=== PATIENT | female | born 1990 | race Caucasian/White ===

== ENCOUNTER 2020-05-25 14:57 | Emergency (ER) | payer BC, SELFPAY ==
[2020-05-25 15:01] VITALS: BP 140/101; PULSE 103; RESP 18; TEMP 36.7; O2SAT 98
--- NOTE | 2020-05-25 15:48 | ED.GENADULT ---
HPI - General Adult General Chief complaint: Ear <Zana Latham PA-C - Last Filed: 05/25/20 16:05> Stated complaint: left ear pain, radiating to jaw and face <Zana Latham PA-C - Last Filed: 05/25/20 16:05> Time Seen by Provider: 05/25/20 15:00 <Zana Latham PA-C - Last Filed: 05/25/20 16:05> Source: patient <Zana Latham PA-C - Last Filed: 05/25/20 16:05> Mode of arrival: ambulatory <Zana Latham PA-C - Last Filed: 05/25/20 16:05> Limitations: no limitations <UNRULY King Last Filed: 05/25/20 16:05> History of Present Illness HPI narrative: Patient is a 21-year-old female who presents with mild sore throat and left ear pain for the last 2 days has not taken anything for symptoms. Patient has mild discomfort worse with swallowing patient has not been seen for this complaint patient presents in no distress. Patient denies other URI symptoms or sick contacts has not taken anything for symptoms and is resting comfortably in the room upon arrival <Zana Latham PA-C - Last Filed: 05/25/20 16:05> Related Data Home medications: Home Medications Medication Instructions Recorded Confirmed famotidine 05/25/20 <Zana Latham PA-C - Last Filed: 05/25/20 16:05> Allergies/adverse reactions: Allergies Allergy/AdvReac Type Severity Reaction Status Date / Time Sulfa (Sulfonamide Allergy Severe Rash Verified 11/23/18 09:37 Antibiotics) iohexol Allergy Unknown Verified 05/25/20 15:06 [From contrast - CT, X-RAY] <Zana Latham PA-C - Last Filed: 05/25/20 16:05> Review of Systems Review of Systems: All systems reviewed & are unremarkable except as noted in HPI and below <Zana Latham PA-C - Last Filed: 05/25/20 16:05> [facility] Social History Social History: Social History (Updated 05/25/20 @ 15:50 by Zana Latham PA-C) Smoking status: Never smoker <UNRULY King Last Filed: 05/25/20 16:05> Exam Narrative: Exam Narrative: GENERAL: Well-appearing, well-nourished, and in no acute distress. HEAD: Normocephalic, atraumatic. EYES: PERRLA and EOMI. ENT: Nares clear, no rhinorrhea or epistaxis. Mucous membranes moist. Oropharynx without tonsillar hypertrophy exudate or other lesions. Bilateral TMs pearly foreman nonbulging CHEST: Clear to auscultation. No respiratory distress. No wheezes rales or rhonchi HEART: Regular rate and rhythm. No murmur heard. EXTREMITIES: Normal range of motion. No edema. SKIN: Warm, dry, no rash. NEURO: No focal deficits. Alert and oriented x3. Cranial nerves II through XII grossly intact PSYCH: Normal mood and affect. <UNRULY King Last Filed: 05/25/20 16:05> Course Course Emergency Course: Patient in the room in no distress aware of case findings treatment plan and diagnosis <UNRULY King Last Filed: 05/25/20 16:05> Vital Signs Vital signs: Vital Signs Temperature 36.7 C 05/25/20 15:01 Pulse Rate 103 H 05/25/20 15:01 Respiratory Rate 18 05/25/20 15:01 Blood Pressure 140/101 H 05/25/20 15:01 Pulse Oximetry 98 05/25/20 15:01 Temperature 36.7 C 05/25/20 15:01 Pulse Rate 103 H 05/25/20 15:01 Respiratory Rate 18 05/25/20 15:01 Blood Pressure 140/101 H 05/25/20 15:01 Pulse Oximetry 98 05/25/20 15:01 <UNRULY King Last Filed: 05/25/20 16:05> Vital Signs Temperature 36.7 C 05/25/20 15:01 Pulse Rate 103 H 05/25/20 15:01 Respiratory Rate 18 05/25/20 15:01 Blood Pressure 140/101 H 05/25/20 15:01 Pulse Oximetry 98 05/25/20 15:01 Temperature 36.7 C 05/25/20 15:01 Pulse Rate 103 H 05/25/20 15:01 Respiratory Rate 18 05/25/20 15:01 Blood Pressure 140/101 H 05/25/20 15:01 Pulse Oximetry 98 07/17/20 15:01 <Bonnie Carias MD - Last Filed: 05/25/20 17:03> Medical Decision Making MDM Narrative Medical decision making narrative: P
== END 2020-05-25 16:27 | disposition home or self-care (01) ==
PROVIDERS: Emergency Provider Emergency Medicine; PCP Family Medicine
DX: H92.02 Otalgia, left ear (principal)
CPT/HCPCS: 87081; 87880; 99283

== ENCOUNTER 2020-06-07 12:29 | Outpatient (CLI) | payer BC, SELFPAY ==
--- NOTE | ~2020-06-07 | US_ITS ---
EXAMINATION: US abdomen complete EXAM DATE: 06/07/2020 14:00 INDICATION: Chronic abdominal pain. TECHNIQUE: Multiple grayscale and Doppler images of the complete abdomen were obtained (by a technolo gist who performed the scan) and subsequently reviewed. There is no prior study for comparison. FINDINGS: The abdominal aorta is normal in caliber. Visualized portion IVC is patent. Pancreas is poorly vi sualized from overlying bowel gas. The liver has normal echogenicity and contour. There are no focal liver lesions identified. There is no evidence of intrahepatic biliary duct dilation. Portal venous flow was seen in the hepatopedal , normal direction and has normal Doppler waveform. Common bile duct measures 5 mm, which is normal. The gallbladder wall is normal in thickness, with ex pected amount of distention. No sonographic evidence of pericholecystic fluid. There is no cholelit hiases. Technologist performing exam reports patient did not demonstrate sonographic Nam's sign. Please note that this sign is less reliable in patients who have received pain medication. Right kidney: There is normal contour and echogenicity. It measures 10.0 x 4.2 x 5.7 centimeters. There are no focal renal lesions identified. There is no hydronephrosis. Left kidney: There is normal contour and echogenicity. It measures 9.8 x 5.7 x 6.3 centimeters. Th ere are no focal renal lesions identified. There is no hydronephrosis. The spleen measures 11.4 centimeters and is morphologically normal. IMPRESSION: 1. Unremarkable complete abdominal ultrasound exam. Reviewed, dictated and finalized at location A.
--- NOTE | ~2020-06-07 | US_ITS ---
EXAMINATION: US pelvic complete w TV DATE: 06/07/2020 14:00 INDICATION: Pelvic pain Comparison:No prior studies for comparison. TECHNIQUE: Multiple transabdominal and endovaginal sonographic images of the pelvis performed. FINDINGS: The uterus measures 9.2 x 4.1 x 5 cm. IUD present in the endometrium. The endometrial compl ex measures 7 mm. The ovaries are not visualized. There is no free fluid in the pelvis. There are no abnormal masses seen on either side. IMPRESSION: 1. Unremarkable pelvic ultrasound. IUD present in the endometrium. Reviewed, dictated and finalized at location A.
== END 2020-06-07 12:30 | disposition home or self-care (01) ==
PROVIDERS: PCP Family Medicine; Visit Provider Family Medicine
DX: R10.9 Unspecified abdominal pain (principal)
CPT/HCPCS: 76700; 76830; 76856

== ENCOUNTER 2020-07-27 11:47 | Outpatient (CLI) | payer BC, SELFPAY ==
--- NOTE | ~2020-07-27 | MMUS_ITS ---
EXAMINATION: MM diagnostic jeferson LT w ekta, US breast LT limited HISTORY: Tender nodule in upper outer quadrant TECHNIQUE: ML, MLO, CC 3-D tomosynthesis images of left breast were performed and synthetic 2-D imag es were generated. CAD analysis was submitted and interpreted. High resolution breast ultrasound was performed. COMPARISON: 02/07/2019 bilateral complete breast ultrasound BREAST PARENCHYMAL COMPOSITION: The breasts are almost entirely fatty. FINDINGS: MAMMOGRAPHIC FINDINGS: No suspicious mass or architectural distortion, malignant calcification, skin thickening or retractio n is detected. ULTRASOUND: There is no evidence of focal abnormal solid or cystic lesion or abnormal shadowing in the area of cl inical complaint in the left upper outer quadrant. IMPRESSION: 1. No mammographic evidence of malignancy 2. Routine mammographic screening is recommended beginning at age 35-40 BI-RADS Category 1: Negative Reviewed, dictated and finalized at location A. IMPRESSION: 1. No mammographic evidence of malignancy 2. Routine mammographic screening is recommended beginning at age 35-40 BI-RADS Category 1: Negative
== END 2020-07-27 11:48 | disposition home or self-care (01) ==
LOC: ANHIMG 11:51
PROVIDERS: PCP Family Medicine
DX: N63.25 Unspecified lump in the left breast, overlapping quadrants (principal)
CPT/HCPCS: 76642; 77061; 77065; G0279

== ENCOUNTER 2021-06-24 12:37 | Outpatient (CLI) | payer BC, SELFPAY ==
--- NOTE | ~2021-06-24 | MR_ITS ---
EXAMINATION: MR brain/brain stem wo con DATE: 06/24/2021 14:13 INDICATION: Atypical left-sided facial pain for one year. TECHNIQUE: Magnetic resonance imaging (MRI) of the brain and brainstem was performed without intraven ous contrast. Sequences included sagittal and axial T1-weighted FSE, axial diffusion-weighted FS EPI, axial T2*-weighted GRE, axial T2-weighted FLAIR Propeller, and axial T2-weighted Propeller. Apparent diffusion coefficient (ADC) maps were created. COMPARISON: None. FINDINGS: There is no intracranial hemorrhage, acute infarction, or abnormal intracranial mass lesion . The ventricles are normal in size. The paranasal sinuses are clear. The orbits are normal. The mast oid air cells are normal. IMPRESSION: 1. Normal brain. Reviewed, dictated and finalized at location B. IMPRESSION: 1. Normal brain.
== END 2021-06-24 12:38 | disposition home or self-care (01) ==
LOC: ANHIMG 12:43
PROVIDERS: PCP Family Medicine
DX: G50.1 Atypical facial pain (principal)
CPT/HCPCS: 70551

== ENCOUNTER 2021-09-05 17:51 | Emergency (ER) | payer BC, SELFPAY ==
[2021-09-05 18:00] VITALS: BP 120/84; PULSE 107; RESP 16; TEMP 37.3; O2SAT 99
--- NOTE | 2021-09-05 18:40 | ED.EAR ---
HPI - Ear Problem General Chief complaint: Ear Stated complaint: ear infection Source: patient and RN notes reviewed Limitations: no limitations History of Present Illness HPI Narrative: The overweight patient, on minimal medications, presents with ear pains. Patient states she had first bilateral, now mostly left ear discomfort that is mild, worse with palpation of the tragus of the ear . She also has definite surrounding [? sympathetic] redness of the superior helix- well away from the piercings of the lower lobule. No fever, decreased acuity, vertigo, discharge, mastoid tenderness Related Data Allergies Allergy/AdvReac Type Severity Reaction Status Date / Time Sulfa (Sulfonamide Allergy Severe Rash Verified 09/05/21 18:18 Antibiotics) iohexol Allergy Unknown Verified 09/05/21 18:18 [From contrast - CT, X-RAY] Review of Systems Review of Systems: General/Constitutional: No weight loss,fever Eyes: N0: Redness,discharge Ears/Nose/Throat: No: Epistaxis,ear discharge Respiratory: Denies: Hemoptysis Gastrointestinal: No Vomiting, Bleeding-rectal Skin: No Lumps, eruption Neurologic: No Focal Weakness,Sz Hematologic: Denies: Petechiae/Purpura Psychiatric: No: Suicida ideationl All Other Systems: Reviewed and Negative PMFSH Social History Social History (Updated 05/25/20 @ 15:50 by Zana Latham PA-C) Smoking status: Never smoker Comments At time of signature, agree with nursing past medical, surgical, social and family history. There is no relevant family history pertinent to the presenting complaint Exam Narrative: General Appearance: Well appearing, Well nourished, No distress EYE: PERRLA, EOMI Ears: Left EAC and helix with mild erythema/flushness;right TM external ear normal, Auditory canal normal Nose: Normal nose, Nares clear Mouth/Throat: Normal appearing, Normal lips Neck: Supple, No adenopathy Respiratory: Airway patent, No respiratory distress Skin: Warm, Dry Neurological: A&O x3, CN II-X intact Psychiatric: Normal mood, Normal affect Course Vital Signs Vital signs: Vital Signs Temperature 99.1 F 09/05/21 18:00 Pulse Rate 107 H 09/05/21 18:00 Respiratory Rate 16 09/05/21 18:00 Blood Pressure 120/84 09/05/21 18:00 Pulse Oximetry 99 09/05/21 18:00 Temperature 99.1 F 09/05/21 18:00 Pulse Rate 107 H 09/05/21 18:00 Respiratory Rate 16 09/05/21 18:00 Blood Pressure 120/84 09/05/21 18:00 Pulse Oximetry 99 09/05/21 18:00 Medical Decision Making Vital Signs Vital Signs: Vital Signs Temperature 99.1 F 09/05/21 18:00 Pulse Rate 107 H 09/05/21 18:00 Respiratory Rate 16 09/05/21 18:00 Blood Pressure 120/84 09/05/21 18:00 Pulse Oximetry 99 09/05/21 18:00 Temperature 99.1 F 09/05/21 18:00 Pulse Rate 107 H 09/05/21 18:00 Respiratory Rate 16 09/05/21 18:00 Blood Pressure 120/84 09/05/21 18:00 Pulse Oximetry 99 09/05/21 18:00 Discharge Plan Discharge Clinical Impression: Acute otalgia Qualifiers: Laterality: left Qualified Code(s): H92.02 - Otalgia, left ear Patient Disposition: Home, Self-Care Condition: Stable Instructions: Swimmer's Ear (ED) Prescriptions: New klbsksuv-ypkdyvzrw-FV 3.5-10,000-1 mg/mL-unit/mL-% solution 4 drop RIGHT EAR Q8H Qty: 10 RF: 0 ciprofloxacin HCl [Cipro] 250 mg tablet 250 mg PO Q12H Qty: 10 RF: 0 fluticasone propionate [Children's Flonase Allergy Rlf] 50 mcg/actuation spray,suspension 1 spray intranasal BID Qty: 16 RF: 2 Follow-up/Referrals: UNKNOWN,DOCTOR [Primary Care Provider] -
== END 2021-09-05 18:45 | disposition home or self-care (01) ==
PROVIDERS: Emergency Provider Emergency Medicine
DX: H92.02 Otalgia, left ear (principal); K21.9 Gastro-esophageal reflux disease without esophagitis
CPT/HCPCS: 99213; G0463

== ENCOUNTER 2021-10-01 17:32 | Emergency (ER) | payer BC, SELFPAY ==
[2021-10-01 17:40] VITALS: BP 158/89; PULSE 97; RESP 18; TEMP 37.1; O2SAT 98
[2021-10-01 17:42] VITALS: BP 158/89; PULSE 97; RESP 18; TEMP 37.1; O2SAT 98
--- NOTE | 2021-10-01 17:44 | ED.URI ---
HPI - URI/Sore Throat General Chief Complaint: Upper Respiratory Infection Stated Complaint: Cough,Congestion Time Seen by Provider: 10/01/21 17:52 Source: patient and RN notes reviewed Mode of arrival: ambulatory Limitations: no limitations History of Present Illness HPI Narrative: 31-year-old female presents concern for 5-day history of nasal congestion, drainage, cough. Reports she is taking [id number] medications with occasional relief. Reports it is moving to her chest. She denies body aches, chills, fever, sweats, shortness of breath. Has not been vaccinated for Covid. MD elicited complaint: cough Related Data Home Medications Medication Instructions Recorded Confirmed famotidine 10/01/21 Allergies Allergy/AdvReac Type Severity Reaction Status Date / Time Sulfa (Sulfonamide Allergy Severe Rash Verified 09/05/21 18:18 Antibiotics) iohexol Allergy Unknown Verified 09/05/21 18:18 [From contrast - CT, X-RAY] Review of Systems Review of Systems: CONSTITUTIONAL: Denies malaise, chills, sweats, or fever. EYES: Denies visual changes, redness, or discharge. ENT: Reports rhinorrhea, congestion. Denies sinus pain, otalgia and sore throat. CARDIOVASCULAR: Denies chest pain, palpitations, or edema. RESPIRATORY: Reports cough, chest congestion. Denies dyspnea. GASTROINTESTINAL: Denies abdominal pain, nausea, vomiting, diarrhea SKIN: Denies rash or itching. MUSCULOSKELETAL: Denies myalgia. NEUROLOGIC: Denies headache. All systems reviewed & are unremarkable except as noted in HPI and below PMFSH Social History Social History (Updated 05/25/20 @ 15:50 by Zana Latham PA-C) Smoking status: Never smoker Comments At time of signature, agree with nursing past medical, surgical, social and family history. There is no relevant family history pertinent to the presenting complaint Exam Narrative: GENERAL: Well-appearing, well-nourished, and in no acute distress. HEAD: Normocephalic EYES: PERRLA, conjunctivae clear ENT: Nares clear, turbinates edematous and erythematous, clear discharge. Mucous membranes moist. TM pearly foreman with sharp light reflex bilaterally; no tragal tenderness. Oropharynx not erythematous without lesions. Tonsils not enlarged and without exudate, no drooling, no hoarseness, no trismus, uvula midline. NECK: Supple. No lymphadenopathy CHEST: Clear to auscultation, breath sounds equal. No wheezing, rhonchi, rales, or stridor. No respiratory distress, speaks in full sentences. HEART: Regular rate and rhythm. No murmur heard. SKIN: Warm, dry, no rash. NEURO: Alert and oriented x3. PSYCH: Normal mood and affect Course Course Emergency Course: Patient is aware of diagnosis, understands and agrees to treatment plan. Anticipatory guidance given. Patient agrees to follow-up as directed and is aware of reasons to seek care at the emergency department. Portions of this record may have been created with voice recognition software Vital Signs Vital signs: Vital Signs Temperature 98.8 F 10/01/21 17:40 Pulse Rate 97 10/01/21 17:40 Respiratory Rate 18 10/01/21 17:40 Blood Pressure 158/89 H 10/01/21 17:40 Pulse Oximetry 98 10/01/21 17:40 Temperature 98.8 F 10/01/21 17:42 Pulse Rate 97 10/01/21 17:42 Respiratory Rate 18 10/01/21 17:42 Blood Pressure 158/89 H 10/01/21 17:42 Pulse Oximetry 98 10/01/21 17:42 Reviewed. MDM - URI/Sore Throat MDM Narrative Medical decision making narrative: Differential diagnosis considered: Paez virus, strep pharyngitis, allergic rhinitis, upper respiratory tract infection, sinusitis, rhinosinusitis, nasopharyngitis. viral pharyngitis, otitis media, otitis externa, pneumonia, bronchitis, viral cough syndrome, viral syndrome, and influenza. Exam findings show no acute concerns or changes; patient is non-toxic appearing and is in no distress. Patient is appropriate for outpatient treatment and follow-up. Critical Care Ti
== END 2021-10-01 18:09 | disposition home or self-care (01) ==
PROVIDERS: Emergency Provider Nurse Practitioner
DX: J01.90 Acute sinusitis, unspecified (principal); K21.9 Gastro-esophageal reflux disease without esophagitis
CPT/HCPCS: 99213; G0463

== ENCOUNTER → 2021-12-31 01:17 | Outpatient (CLI) | payer OTHER, SELFPAY ==
[2021-12-31 11:52] LABS: SARS-CoV-2 RNA PCR Negative
== END ==
PROVIDERS: Visit Provider Otolaryngology
DX: Z01.812 Encounter for preprocedural laboratory examination (principal); Z20.822 Contact with and (suspected) exposure to COVID-19
CPT/HCPCS: C9803; U0003; U0005

== ENCOUNTER 2022-02-01 22:22 | Emergency (ER) | payer OTHER, SELFPAY ==
[2022-02-01 22:26] VITALS: BP 139/67; PULSE 110; RESP 20; TEMP 36.5; O2SAT 99
--- NOTE | 2022-02-01 22:55 | ED.WOUNDLAC ---
HPI - Wound/Laceration General Chief Complaint: Wound/Laceration Stated Complaint: Left index finger laceration Time Seen by Provider: 02/01/22 22:38 History of Present Illness HPI narrative: Patient is a 31-year-old female who presents ER with laceration to her left second digit. Patient was trying to remove a pop it from the back of an item with a knife when she stabbed her self in the finger. She tried to apply some topical medication to clot but it did not stop a couple spots. Tetanus shot up-to-date. No numbness or tingling. Related Data Home Medications Medication Instructions Recorded Confirmed cholecalciferol (vitamin D3) 50 mcg PO DAILY 12/27/21 12/27/21 [Vitamin D3] vitamin B complex [B Complex] 1 cap PO DAILY 12/27/21 12/27/21 Allergies Allergy/AdvReac Type Severity Reaction Status Date / Time Sulfa (Sulfonamide Allergy Severe Rash Verified 02/01/22 22:36 Antibiotics) iohexol Allergy Anaphylactic Verified 02/01/22 22:36 [From contrast - CT, X-RAY] Shock Review of Systems Constitutional: Constitutional: Denies chills, Denies fever(s) and Denies weakness Musculoskeletal: Musculoskeletal: Denies arthralgias and Denies joint swelling Integumentary/Breasts: Skin/Breast: Denies pruritus, Denies erythema and Denies rash Comments: Finger laceration Neurologic: Denies focal weakness and Denies numbness PMFSH Past Medical History Medical History (Updated 02/01/22 @ 23:41 by Rico Zepeda MD) Hypertension Kidney stones Surgical History Surgical History (Updated 02/01/22 @ 22:58 by Rico Zepeda MD) No pertinent past surgical history Social History Social History Smoking status: Never smoker Alcohol intake: never Substance use: never Substance use type: does not use Spiritual care concerns: No Exam Narrative: GENERAL: Well-appearing, well-nourished, and in no acute distress. HEAD: Normocephalic, atraumatic. HEART: Regular rate and rhythm. No murmur heard. Normal peripheral pulses. EXTREMITIES: Normal range of motion. No edema. SKIN: Warm, dry, no rash. 2 cm laceration over the fat pad of the second digit of the left hand without any exposure of bone. Neurovascular intact. NEURO: No focal deficits. Alert and oriented x3. PSYCH: Normal mood and affect. Course Course Emergency Course: Finger sutured. Discharge home. Vital Signs Vital signs: Vital Signs Temperature 97.7 F 02/01/22 22:26 Pulse Rate 110 H 02/01/22 22:26 Respiratory Rate 20 02/01/22 22:26 Blood Pressure 139/67 02/01/22 22:26 Pulse Oximetry 99 02/01/22 22:26 Temperature 97.7 F 02/01/22 22:26 Pulse Rate 110 H 02/01/22 22:26 Respiratory Rate 20 02/01/22 22:26 Blood Pressure 139/67 02/01/22 22:26 Pulse Oximetry 99 02/01/22 22:26 Procedures Laceration Laceration 1: Date: 02/01/22 Time: 23:28 Site: other (2bd digit) Side (If applicable): left Size (cm): 2 Description: linear Depth: simple, single layer Local Anesthetic: lidocaine 1% and with epi Amount of anesthesia used (mL): 1 Pre-repair: irrigated ====== Skin Level ====== Skin layer closed with: nylon Size (cm): 5-0 Number of sutures: 4 Technique: simple, interrupted ====== Subcutaneous Layer ====== ====== Muscle Layer ====== ====== Tendon Layer ====== Discharge Plan Discharge Clinical Impression: Finger laceration Patient Disposition: Home, Self-Care Condition: Stable Instructions: Care For Your Stitches (ED), Laceration (ED) Additional Instructions: Return the ER if you have fever 100.4 ?F, you cannot keep down food or water, you have chest pain or shortness of breath, or you have additional concerns. Prescriptions: No Action vitamin B complex [B Complex] Capsule 1 cap PO DAILY RF: 0 cholecalcifer
--- NOTE | 2022-02-01 23:22 | PC.NURSE ---
ERP at bedside. Requesting lido with epi for suturing. RN at bedside.
[2022-02-02 00:26] VITALS: BP 153/95; PULSE 100; RESP 16; O2SAT 100
== END 2022-02-02 00:27 | disposition home or self-care (01) ==
PROVIDERS: Emergency Provider Emergency Medicine
DX: S61.211A Laceration without foreign body of left index finger without damage to nail, initial encounter (principal); I10 Essential (primary) hypertension; Z87.442 Personal history of urinary calculi; W26.0XXA Contact with knife, initial encounter
CPT/HCPCS: 12001; 99282

== ENCOUNTER 2022-02-16 14:21 | Emergency (ER) | payer OTHER, SELFPAY ==
[2022-02-16 14:28] VITALS: BP 146/93; PULSE 97; RESP 16; TEMP 37.1; O2SAT 99
--- NOTE | 2022-02-16 14:28 | ED.SKABFB ---
HPI - Skin/Abscess/Foreign Bdy General Chief complaint: Skin/Abscess/Foreign Body Stated complaint: removal of stitches Time Seen by Provider: 02/16/22 14:30 Source: patient and RN notes reviewed Mode of arrival: ambulatory Limitations: no limitations History of Present Illness HPI narrative: 31-year-old female presents for excision level. Reports she has 4 sutures in the distal palmar aspect of the left second digit. Reports she had the stitches placed 2 weeks ago. She denies any complications, drainage, redness, swelling, pain out of portion. Reports she has been MD complaint: laceration (Suture removal) Related Data Home Medications Medication Instructions Recorded Confirmed cholecalciferol (vitamin D3) 50 mcg PO DAILY 12/27/21 12/27/21 [Vitamin D3] vitamin B complex [B Complex] 1 cap PO DAILY 12/27/21 12/27/21 fluticasone propionate 50 mcg INTRANASAL DAILY 02/16/22 02/16/22 Allergies Allergy/AdvReac Type Severity Reaction Status Date / Time Sulfa (Sulfonamide Allergy Severe Rash Verified 02/16/22 14:29 Antibiotics) iohexol Allergy Anaphylactic Verified 02/16/22 14:29 [From contrast - CT, X-RAY] Shock Review of Systems Review of Systems: CONSTITUTIONAL: Denies malaise, chills, sweats, or fever. SKIN: Reports laceration with sutures to the second edge of the left hand MUSCULOSKELETAL: Denies muscle skeletal pain All systems reviewed & are unremarkable except as noted in HPI and below PMFSH Past Medical History Medical History (Updated 02/16/22 @ 14:41 by Anahi Villanueva NP) Hypertension Kidney stones Surgical History Surgical History (Updated 02/01/22 @ 22:58 by Rico Zepeda MD) No pertinent past surgical history Social History Social History Smoking status: Never smoker Alcohol intake: never Substance use: never Substance use type: does not use Spiritual care concerns: No Comments At time of signature, agree with nursing past medical, surgical, social and family history. There is no relevant family history pertinent to the presenting complaint Exam Narrative: GENERAL: Well-appearing, well-nourished, and in no acute distress. HEAD: Normocephalic EYES: PERRLA, conjunctivae clear ENT: Mucous membranes moist. NECK: Supple. No lymphadenopathy CHEST: Clear to auscultation. No respiratory distress. HEART: Regular rate and rhythm. SKIN: Warm, dry. Linear laceration to the distal palmar aspect of the second edge of left hand that is approximated with 4 intact simple interrupted sutures NEURO: Alert and oriented x3. PSYCH: Normal mood and affect Course Course Emergency Course: Patient is aware of diagnosis, understands and agrees to treatment plan. Anticipatory guidance given. Patient agrees to follow-up as directed and is aware of reasons to seek care at the emergency department. Portions of this record may have been created with voice recognition software Level of Care: Express Care Visit Vital Signs Vital signs: Reviewed. MDM - Skin/Abscess/Foreign Bdy MDM Narrative Medical decision making narrative: Verbal consent was obtained. Wound well approximated, no erythema, induration, or discharge noted. 4 simple interrupted completely removed in a sterile fashion. Patient tolerated procedure well, no complications. Patient advised to look for and return for any signs of infection such as redness, swelling, discharge, or worsening pain. Critical Care Time Critical Care Time Critical Care Time: No Discharge Plan Discharge Clinical Impression: Encounter for removal of sutures Patient Disposition: Home, Self-Care Condition: Stable Instructions: Stitches Removal (ED) Additional Instructions: AFTER the stitches are removed: Clean your wound as directed. Carefully wash your wound with soap and water. Pat the area dry with a clean towel. Protect your wound. Your wound can swell, bleed, or split
[2022-02-16 14:33] VITALS: BP 146/93; PULSE 97; RESP 16; TEMP 37.1; O2SAT 99
== END 2022-02-16 14:43 | disposition home or self-care (01) ==
PROVIDERS: Emergency Provider Nurse Practitioner
DX: S61.211D Laceration without foreign body of left index finger without damage to nail, subsequent encounter (principal); X58.XXXD Exposure to other specified factors, subsequent encounter; I10 Essential (primary) hypertension
CPT/HCPCS: 99211; G0463

== ENCOUNTER 2022-04-01 14:05 | Outpatient (CLI) | payer OTHER, SELFPAY ==
--- NOTE | ~2022-04-01 | MM_ITS ---
EXAMINATION: MM diagnostic jeferson LT w ekta HISTORY: Lateral discoloration of the left breast TECHNIQUE: ML, MLO and CC 3-D tomosynthesis images of the left breast were performed and synthetic 2- D images were generated. CAD analysis was submitted and interpreted. COMPARISON: 07/27/2020 diagnostic left mammogram and limited left breast ultrasound examination BREAST PARENCHYMAL COMPOSITION: The left breast is almost entirely fatty. FINDINGS: No suspicious mass or architectural distortion, malignant calcification, skin thickening or retraction or significant new or developing density is detected. IMPRESSION: 1. No mammographic evidence of malignancy 2. Routine mammographic screening beginning at age 40 is recommended. BI-RADS Category 1: Negative Reviewed, dictated and finalized at location A.
== END 2022-04-01 14:06 | disposition home or self-care (01) ==
DX: Z12.31 Encounter for screening mammogram for malignant neoplasm of breast (principal); R92.8 Other abnormal and inconclusive findings on diagnostic imaging of breast
CPT/HCPCS: 77061; 77065; G0279

== ENCOUNTER 2022-09-15 12:32 | Emergency (ER) | payer OTHER, SELFPAY ==
[2022-09-15 12:44] VITALS: BP 157/117; PULSE 96; RESP 18; TEMP 36.8; O2SAT 99
--- NOTE | 2022-09-15 12:59 | ED.URI ---
HPI - URI/Sore Throat General Chief Complaint: Upper Respiratory Infection Stated Complaint: Sneezing Blood Time Seen by Provider: 09/15/22 13:01 Source: patient, RN notes reviewed and old records reviewed Mode of arrival: ambulatory Limitations: no limitations History of Present Illness HPI Narrative: 32-year-old female presents to the [facility] with complaints of sinus congestion for 2 days And sneeze today that was a little bloody. Has been taking Sudafed, Mucinex and using Flonase twice a day. Denies fevers. Denies cough, chest pain or abdominal pain. Related Data Home Medications Medication Instructions Recorded Confirmed cholecalciferol (vitamin D3) 50 50 mcg PO DAILY 12/27/21 09/15/22 mcg (2,000 unit) capsule (Vitamin D3) vitamin B complex 1 cap PO DAILY 12/27/21 09/15/22 fluticasone propionate 50 50 mcg intranasal DAILY 02/16/22 09/15/22 mcg/actuation nasal spray,suspension famotidine 40 mg tablet 40 mg PO DAILY 09/15/22 09/15/22 Allergies Allergy/AdvReac Type Severity Reaction Status Date / Time Sulfa (Sulfonamide Allergy Severe Rash Verified 09/15/22 12:38 Antibiotics) iohexol Allergy Anaphylactic Verified 09/15/22 12:38 [From contrast - CT, X-RAY] Shock Review of Systems Review of Systems: All systems reviewed & are unremarkable except as noted in HPI and below Constitutional: Constitutional: Reports no additional constitutional complaints, Denies chills and Denies fever(s) Eyes: Eyes: Reports no additional eye complaints ENT: Reports as per HPI and Reports nasal congestion Cardiovascular: Cardiovascular: Reports no additional cardiovascular complaints Respiratory: Respiratory: Reports no additional respiratory complaints Gastrointestinal: Gastrointestinal: Reports no additional gastrointestinal complaints Musculoskeletal: Musculoskeletal: Reports no additional musculoskeletal complaints Integumentary/Breasts: Skin/Breast: Reports system reviewed and no additional complaints, except as docu Neurologic: Reports system reviewed and no additional complaints, except as documented Psychiatric: Psychiatric: Reports no additional psychiatric complaints Allergic/Immunologic: Allergic/Immunologic: Reports no additional allergic/immunologic complaints PMFSH Past Medical History Medical History Hypertension Kidney stones Surgical History Surgical History No pertinent past surgical history Social History Social History Smoking status: Never smoker Alcohol intake: never Substance use: never Substance use type: does not use Spiritual care concerns: No Comments At the time of my signature, I reviewed and agree with the nursing past medical, surgical, social, and family history. There is no relevant family history pertinent to the patient complaint. Exam Const: General: healthy appearing, comfortable, no acute distress, well developed, alert and well nourished Nutritional Appearance: well nourished and obese morbidly obese Orientation/consciousness: patient oriented x3 Limitations: no limitations HENMT: Head: normal to inspection Ears: external ears normal, TM's normal bilaterally and EAC's normal Face/Nose/Sinus: Normal external nose present and Nasal discharge present clear; not bloody Face and sinus: normal facial exam Mouth: Yes Normal oral and palatal mucosa present, Yes lip normal and Yes moist mucous membranes Throat: posterior oropharynx normal and uvula midline Eyes: General: appearance normal, both eyes and all related structures Conjunctivae: conjunctivae normal Pupils: Equal, round and reactive pupils present Neck: Neck: normal visual inspection, full ROM, no lymphadenopathy and no meningeal signs Chest: Chest palpation & inspection: normal inspection of the chest Resp: Effort
== END 2022-09-15 13:10 | disposition home or self-care (01) ==
PROVIDERS: Emergency Provider Nurse Practitioner
DX: J01.40 Acute pansinusitis, unspecified (principal); I10 Essential (primary) hypertension
CPT/HCPCS: 99213; G0463

== ENCOUNTER 2022-11-04 12:43 | Outpatient (CLI) | payer OTHER, SELFPAY ==
--- NOTE | ~2022-11-04 | CT_ITS ---
EXAMINATION: CT sinus wo con DATE: 11/04/2022 12:58 INDICATION: Chronic sinusitis TECHNIQUE: Computed tomography (CT) of the paranasal sinuses was performed without intravenous contra st. The dose-length product (DLP) was 222.52 mGy-cm. Iterative reconstruction was used. COMPARISON: None FINDINGS: There is normal development and pneumatization of the paranasal sinuses. There is mild muco melisa thickening of the anterior ethmoidal air cells, left frontal sinus and maxillary sinuses. There i s a 12 mm polyp or mucous retention cyst of the anterior/inferior aspect of the right maxillary sinus . The sphenoid sinuses are clear. There is a trace right mastoid effusion. The bilateral ostiomeatal complexes are occluded. Visualized soft tissues are unremarkable. IMPRESSION: 1. Mild sinus disease as detailed above. Reviewed, dictated and finalized at location L. 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
== END 2022-11-04 12:44 | disposition home or self-care (01) ==
LOC: ANHIMG 12:44
PROVIDERS: Visit Provider Otolaryngology
DX: J32.9 Chronic sinusitis, unspecified (principal)
CPT/HCPCS: 70486

== ENCOUNTER 2022-12-05 03:15 | Day surgery (SDC) | payer OTHER, SELFPAY ==
[2022-11-25 13:10] VITALS: BMI 60.9
--- NOTE | 2022-11-25 13:17 | SUR.PREOP ---
Report to the Outpatient Waiting Room, entrance under the green pavilion located off [facility], at time _0600 on date _12/05/22 . Planned Procedure Time: _0800 . Time changes happen often and if your time is changed the preop area will call you the afternoon before. - You and your visitor will be asked to self-screen and do not enter if you have any COVID symptoms. - Only one visitor is requested with a max of two and NO children visitors are allowed at this time. - The patient visitor may be requested to leave or wait in car when not with patient due to distancing restrictions. - A mask is optional within the hospital. Patients may have clear liquids (water, carbonated beverages, clear teas, apple juice) until 3 hours prior to surgery with a maximum of 20 ounces. - No food from midnight until time of surgery - Infants may have breast milk until 4 hours before surgery, infant formula 6 hours prior to surgery. - Children will be allowed to drink immediately following surgery. If applicable, please bring a bottle or sippy cup to assist with drinking. Juice, water, soda, and popsicles are readily available. For infants on formula, please bring formula the day of surgery. Pacifiers are allowed. Take the following medications with a SIP of water the morning of surgery: ___n/a Medications to discontinue per physician _vitamins Date to take last dose_12/02/22 Please no make-up, nail prydeinig, hairspray, perfume, deodorant, or body powder the day of surgery. No jewelry (including any body piercings) or valuables the day of surgery, leave them at home. Please take a shower or bath the night before, or the morning of, surgery with an antibacterial soap. Wear comfortable, loose fitting clothing. Children are encouraged to wear pajamas. - Jewelry must be removed prior to entering the operating room. Rings and piercings that are not removed may be cut off. - The hospital will not accept responsibility for valuables. - Please leave all valuables, including medications, at home the day of surgery. If you are going home after surgery, a licensed bull driver must drive you home. - NO public transportation without another adult if you receive anesthesia. - We recommend that an adult stay with you for 24 hours following discharge. - We also recommend that you do not drive, make important decision, drink alcoholic beverages, or take any drugs that were not prescribed by your health care provider for at least 24 hours after your discharge time. For Pediatric surgeries, we recommend two adults accompany the child home. Follow any additional instructions given to you from your surgeon. If you or anyone in your household have experienced Covid symptoms in the past week, please notify your surgeon or the nurse liaison at the phone number below for possible testing. Telephone instructions given to _boris alvarez and asked if any additional questions and then verbalized understanding. Patient advised to call surgeon office or pre surgery nurse liaison [phone] if any additional questions.
--- NOTE | 2022-12-04 13:51 | WPDANESEPPF ---
Anes - Initial Pre Proc Eval Procedure: Operation Date: 12/05/22 08:00 Proposed Procedures p Septoplasty - Natalio White MD s Image Guided Bilateral Maxillary Antrostomy Without Tissue Removal, Bilateral Anterior Ethmoidectomy, Left Frontal Sinusotomy, Bilateral Inferior Turbinectomy With Outfracture - Natalio White MD Date/Time: 12/04/22 13:51 Surgeon: Natalio White MD Pre Op Diagnosis: chronic sinusitis Patient Data Age: 32 Gender: F Height: 1.63 m Weight: 160.9 kg Allergies Allergy/AdvReac Type Severity Reaction Status Date / Time iohexol Allergy Severe Anaphylactic Verified 12/05/22 06:07 [From contrast - CT, X-RAY] Shock Sulfa (Sulfonamide Allergy Severe Rash Verified 12/05/22 06:07 Antibiotics) Home Medications Medication Instructions Recorded Confirmed Type cholecalciferol (vitamin D3) 50 50 mcg PO DAILY 12/27/21 11/25/22 History mcg (2,000 unit) capsule (Vitamin D3) vitamin B complex 1 cap PO DAILY 12/27/21 11/25/22 History fluticasone propionate 50 50 mcg intranasal DAILY 02/16/22 11/25/22 History mcg/actuation nasal spray,suspension famotidine 40 mg tablet 40 mg PO DAILY 09/15/22 11/25/22 History meclizine 12.5 mg tablet 12.5 mg PO PRN 10/16/22 11/25/22 History Patient hx anesthesia problems: none Family hx anesthesia problems: none Results Review: All pre-operative results and documents have been reviewed as part of the pre-operative evaluation. [facility] Past Medical History Medical History (Updated 12/04/22 @ 16:31 by Natalio White MD) Acute otalgia Hypertension Kidney stones Morbid obesity with BMI of 60.0-69.9, adult Otalgia of both ears Surgical History Surgical History No pertinent past surgical history Social History Social History (Updated 10/16/22 @ 11:06 by SONNY Yee) Smoking status: Never smoker Alcohol intake: never Substance use: never Substance use type: does not use Lack of Transportation: No Lack of Food: Never True Current Housing: I Have Housing Concerned About Future Housing: No Difficulty Paying Gas/Electric Bills: No Difficulty Paying for Meds: No Currently Unemployed: No Education: Trade/Vocational Certificate Difficulty w/ Childcare or Family Care: YES Living arrangements: with family Spiritual care concerns: No Anes - Eval Final PreProcedure Day of Procedure 12/04/22 13:51 Patient weight: super morbidly obese Heart: regular rate and rhythm Lungs: clear to auscultation and normal air movement Airway: Mallampati scale class II Neurological: alert and oriented Last oral intake: >/= 8 hours ASA classification: III Emergent: no Anesthetic plan: proceed Anesthesia type and monitoring: general ETT Results Review: All pre-operative results and documents have been reviewed as part of the pre-operative evaluation. Informed Consent: The patient's anesthetic plan and its attendant risks and benefits were discussed with the patient/family/POA. Questions were solicited and answers provided to the satisfaction of the patient/family/POA.
--- NOTE | 2022-12-04 16:29 | PM.IMHP ---
H&P: HPI History of Present Illness Date/Time: 12/04/22 16:29 Chief Complaint: chronic sinusitis nasal obstruction nasal congestion septal deviation turbinate hypertrophy Narrative: planned surgical procedure Review of Systems Review of Systems: All systems reviewed & are unremarkable except as noted in HPI and below PMFSH Past Medical History Medical History (Updated 12/04/22 @ 16:31 by Natalio White MD) Acute otalgia Hypertension Kidney stones Morbid obesity with BMI of 60.0-69.9, adult Otalgia of both ears Surgical History Surgical History No pertinent past surgical history Social History Social History (Updated 10/16/22 @ 11:06 by SONNY Yee) Smoking status: Never smoker Alcohol intake: never Substance use: never Substance use type: does not use Lack of Transportation: No Lack of Food: Never True Current Housing: I Have Housing Concerned About Future Housing: No Difficulty Paying Gas/Electric Bills: No Difficulty Paying for Meds: No Currently Unemployed: No Education: Trade/Vocational Certificate Difficulty w/ Childcare or Family Care: YES Living arrangements: with family Spiritual care concerns: No Meds Home Medications and Allergies Home Medications Medication Instructions Recorded Confirmed Type cholecalciferol (vitamin D3) 50 50 mcg PO DAILY 12/27/21 11/25/22 History mcg (2,000 unit) capsule (Vitamin D3) vitamin B complex 1 cap PO DAILY 12/27/21 11/25/22 History fluticasone propionate 50 50 mcg intranasal DAILY 02/16/22 11/25/22 History mcg/actuation nasal spray,suspension famotidine 40 mg tablet 40 mg PO DAILY 09/15/22 11/25/22 History meclizine 12.5 mg tablet 12.5 mg PO PRN 10/16/22 11/25/22 History prednisone 10 mg tablet 10 mg PO DAILY #2 tabs 12/02/22 Rx Allergies Allergy/AdvReac Type Severity Reaction Status Date / Time iohexol Allergy Severe Anaphylactic Verified 11/25/22 12:52 [From contrast - CT, X-RAY] Shock Sulfa (Sulfonamide Allergy Severe Rash Verified 11/25/22 12:52 Antibiotics) Exam Narrative: septal deviation turbinate hypertrophy Assessment and Plan Assessment and plan (1) Chronic sinusitis: Code(s): J32.9 - Chronic sinusitis, unspecified Status: Acute Assessment and Plan: plan OR image guided endoscopic bilateral maxillary antrostomies anterior ethmoidectomies left frontal sinusotomy endoscopic assisted septoplasty inferior turbinate reduction with outfracture risks discussed including bleeding infection septal perforation pain numbness damage to any structure involved in surgery septal perforation CSF leak blindness change in vision brain brain damage bleeding need for postoperative procedures failure to resolve symptoms. (2) Facial pain: Code(s): R51.9 - Headache, unspecified Status: Acute (3) Nasal septal deviation: Code(s): J34.2 - Deviated nasal septum Status: Acute (4) Nasal turbinate hypertrophy: Code(s): J34.3 - Hypertrophy of nasal turbinates Status: Acute (5) Nasal obstruction: Code(s): J34.89 - Other specified disorders of nose and nasal sinuses Status: Acute
[2022-12-05] VITALS (9 sets, daily range): BP systolic 130–144; BP diastolic 72–100; PULSE 87–123; RESP 14–22; TEMP 36.2–37.2; O2SAT 94–100
--- NOTE | 2022-12-05 07:10 | WPDHPUPDATE1 ---
History and Physical Update Update Date/Time: 12/05/22 07:10 History and Physical has been reviewed, including an updated exam of the patient. There are NO changes in the patient's condition. Risks, benefits, and alternatives have been discussed and questions answered. Patient agrees to proceed with procedure.
[2022-12-05] MEDS: LACTATED RINGERS 1,000 ML 30 ML IV CONT ×2 (07:12→10:55)
[2022-12-05] MEDS: ACETAMINOPHEN 500 MG TABLET 1000 MG PO (07:13)
[2022-12-05] MEDS: SCOPOLAMINE 1.5 MG PATCH TRANSDERM (07:25)
[2022-12-05] MEDS: MIDAZOLAM HCL (*CRX) 2 MG/2 ML VIAL 1 MG IV PUSH (07:26)
--- NOTE | 2022-12-05 07:53 | WPDHPUPDATE1 ---
History and Physical Update Update Date/Time: 12/05/22 07:53 Possible transnasal adenoidectomy
--- NOTE | 2022-12-05 07:55 | SUR.PREOP ---
DR TRINIDAD SPOKE WITH PATIENT AND CONSENT WAS ALTERED AND INITIALED BY PATIENT
[2022-12-05] MEDS: ceFAZolin 3 GM/D5W 100 ML 100 ML IVPB (08:07)
[2022-12-05] MEDS: OXYMETAZOLINE HCL 0.05% NAS 15 ML BTL (*BKC) 1 SPRAY NASAL (08:43)
[2022-12-05] MEDS: MUPIROCIN 2% OINT 22 GM TUBE 1 APPLIC EACH NARE (09:45)
[2022-12-05] MEDS: LIDO 2%/EPINEPHRINE 1:100,000 50 ML VIAL 10 ML INFILTRATE (09:46)
[2022-12-05] MEDS: TRIAMCINOLONE ACET INJ 40 MG/ML VIAL XX ×2 (10:23→10:26)
--- NOTE | 2022-12-05 11:11 | W.PM.PROC2 ---
Procedure Note - Detailed Date of Procedure 12/05/22 Pre-op Diagnosis chronic sinusitisNasal obstruction septal deviation turbinate hypertrophy adenoid hypertrophy Post-op Diagnosis Same Procedure Performed image guided endoscopic bilateral maxillary antrostomies image guided endoscopic bilateral anterior ethmoidectomies image guided endoscopic left frontal sinusotomy all without tissue removal endoscopic assisted septoplasty inferior turbinate submucosal reduction with outfracture transnasal adenoidectomy Surgeon Natalio White MD Anesthesia General Indications see above Findings large adenoids easily reduced pick turbinates septum deviated to the left severely all corrected no perforations polypoid edematous infected tissue in all the operated sinuses Description of Procedure patient identified consent verified. Patient brought operating. Time-out performed. General anesthesia induced endotracheal tube secured. Patient prepped draped position 2nd time-out performed. Image guidance initiated and confirmed. Afrin-soaked pledgets placed allowed to sit for 5 minutes then removed. 0 degree endoscope utilized 10 cc 1% lidocaine 1 100,000 parts epinephrine injected into the bilateral nasal septum and anterior heads of the inferior turbinates. Fifteen blade utilized to make Reid incision left-sided septum. Left nasal septal flap elevated 7 Macedonian suction. Osteotome utilized across the septum 7 Macedonian suction utilized to elevate right nasal septal flap. Deviated septum removed combination Nawaf Osuna forceps osteotome Janell forceps. No perforations. Septum closed 2 interrupted 5 0 fast gut sutures. Turbinates reduced submucosal plane with turbinate blade on microdebrider. Outfractured [place] elevator. Transnasal adenoidectomy performed with suction Bovie electrocautery setting of 15 and 20. Maxillary antrostomies performed with image guidance backbiter double ball tip probe straight through cut micro debrider. Anterior ethmoidectomies performed with Kerrison image guidance microdebrider. Excess bleeding throughout the procedure not life threatening. Left frontal sinusotomy performed with image guidance frontal seeker frontal suction Cobra and hose Chava punch. No pack placed the bilateral middle meati I soaked with 1 cc of triamcinolone bilaterally. Schmid splints placed sutured anteriorly using a 3 0 mattress nylon suture. Blood loss 100 cc. I performed all dictated portions of the procedure. No complications. Care the patient given Anesthesiology. Patient taken to PACU. Estimated Blood Loss 100 Drains No Packing Yes ( Nova pack) Pathology None sent Complications No immediate complications Condition Stable Disposition PACU [facility] Billing Surgery - Charge Forward: Surgery Billing
[2022-12-05] MEDS: ONDANSETRON INJ 4 MG/2 ML VIAL IV PUSH (11:43)
== END 2022-12-05 13:24 | disposition home or self-care (01) ==
PROVIDERS: Visit Provider Otolaryngology
PROC: (CPT 30520; principal; 2022-12-05 08:00)
PROC: (CPT 31256; 2022-12-05 08:00)
DX: J32.9 Chronic sinusitis, unspecified (principal); J34.2 Deviated nasal septum; J34.3 Hypertrophy of nasal turbinates; J35.2 Hypertrophy of adenoids; J34.89 Other specified disorders of nose and nasal sinuses; J33.8 Other polyp of sinus; R51.9 Headache, unspecified; I10 Essential (primary) hypertension; E66.01 Morbid (severe) obesity due to excess calories; Z68.44 Body mass index [BMI] 60.0-69.9, adult
CPT/HCPCS: 31256; 31254; 61782; 31276; 30520; 30140; 42999; A9270; J0330; J0690; J1100; J2250; J2405; J2704; J3010; J3301; J7120

== ENCOUNTER 2023-04-16 10:28 | Outpatient (CLI) | payer OTHER, SELFPAY ==
--- NOTE | ~2023-04-16 | CT_ITS ---
EXAMINATION: CT sinus wo con DATE: 04/16/2023 10:53 INDICATION: Chronic sinusitis TECHNIQUE: Computed tomography (CT) of the paranasal sinuses was performed without contrast. Iterativ e reconstruction technique was employed. Exam dose: 11/04/2022 CT sinuses mGy-cm total exam DLP. COMPARISON: 11/04/2022 CT sinuses FINDINGS: Virtually midline nasal septum. There is mildly compressed thickening along the medial wall of the left frontal sinus and some focal soft tissue thickening in the anterior right ethmoids. Interval bilateral nasal antral windows with resection of the uncinate processes and partial ethmoide ctomies since 11/04/2022. Up to 2.9 cm polyp or mucous retention cyst along the anteromedial aspect of the lower right maxillar y sinus. There is mild mucoperiosteal thickening in the lower left maxillary sinus and roof of the ri ght maxillary sinus. The right frontal sinus, left ethmoid air cells and bilateral sphenoid sinuses a re clear. The mastoid air cells are well-developed and aerated bilaterally. IMPRESSION: Status post bilateral nasoantral windows and partial ethmoidectomies since 11/04/2022 Up to 2.9 cm polyp or mucous retention cyst in the inferomedial right maxillary sinus Mild mucosal periosteal thickening along the medial wall of the left frontal sinus, medial roof of ri ght maxillary sinus and the lower left maxillary sinus. Reviewed, dictated and finalized at [facility]. Reviewed, dictated and finalized at location L. IMPRESSION: Status post bilateral nasoantral windows and partial ethmoidectomi es since 11/04/2022 Up to 2.9 cm polyp or mucous retention cyst in the inferomedial right maxillary sinus Mild mucosal periosteal thickening along the medial wall of the left frontal si nus, medial roof of right maxillary sinus and the lower left maxillary sinus.
== END 2023-04-16 10:29 | disposition home or self-care (01) ==
PROVIDERS: PCP Physician Assistant; Visit Provider Otolaryngology
DX: J32.9 Chronic sinusitis, unspecified (principal); R93.0 Abnormal findings on diagnostic imaging of skull and head, not elsewhere classified
CPT/HCPCS: 70486

== ENCOUNTER 2023-08-11 09:03 | Outpatient (CLI) | payer OTHER, SELFPAY ==
--- NOTE | 2023-08-11 11:30 | NEURO_ITS ---
Impression: # Complains of left upper extremity discomfort with numbness. # No Carpal Tunnel Syndrome. # Left ulnar neuropathy across the elbow. # Normal needle/EMG. Nerve Conduction Studies Anti Sensory Summary Table Stim Site NR Peak (ms) P-T Amp (?V) Site1 Site2 Delta-P (ms) Dist (cm) [place] (m/s) Left Median Anti Sensory (2-3nd Digit) Wrist 2.5 80.0 Wrist 2-3nd Digit 2.5 14.0 56 Wrist 2.5 71.0 Wrist 2-3nd Digit 2.5 14.0 56 Right Median Anti Sensory (2-3nd Digit) Wrist 2.4 41.6 Wrist 2-3nd Digit 2.4 14.0 58 Wrist 2.4 78.7 Wrist 2-3nd Digit 2.4 14.0 58 Left Radial Anti Sensory (Base 1st Digit) Wrist 1.5 38.7 Wrist Base 1st Digit 1.5 0.0 Right Radial Anti Sensory (Base 1st Digit) Wrist 1.8 29.0 Wrist Base 1st Digit 1.8 0.0 Left Ulnar Anti Sensory (5th Digit) Wrist 2.3 65.0 Wrist 5th Digit 2.3 14.0 61 Right Ulnar Anti Sensory (5th Digit) Wrist 2.0 44.9 Wrist 5th Digit 2.0 14.0 70 Motor Summary Table Stim Site NR Onset (ms) O-P Amp (mV) Site1 Site2 Delta-0 (ms) Dist (cm) [place] (m/s) Left Median Motor (Abd Poll Brev) Wrist 2.9 7.2 Elbow Wrist 4.4 29.0 66 Elbow 7.3 3.8 Right Median Motor (Abd Poll Brev) Wrist 2.4 5.7 Elbow Wrist 4.2 26.0 62 Elbow 6.6 3.8 Left Ulnar Motor (Abd Dig Minimi) Wrist 2.2 6.6 A Elbow Wrist 5.1 28.0 55 A Elbow 7.3 6.6 B Elbow Wrist 3.1 21.0 68 B Elbow 5.3 7.7 Right Ulnar Motor (Abd Dig Minimi) Wrist 2.7 4.2 A Elbow Wrist 4.5 29.0 64 A Elbow 7.2 3.9 F Wave Studies EMG Side Muscle Nerve Root Ins Act Fibs Amp Dur Recrt Comment Left 1stDorInt Ulnar C8-T1 Nml Nml Nml Nml Nml Left Ext Indicis Radial (Post Int) C7-8 Nml Nml Nml Nml Nml Left Ext Digitorum Radial (Post Int) C7-8 Nml Nml Nml Nml Nml Left BrachioRad Radial C5-6 Nml Nml Nml Nml Nml Left PronatorTeres Median C6-7 Nml Nml Nml Nml Nml Left Abd Poll Brev Median C8-T1 Nml Nml Nml Nml Nml Right Abd Poll Brev Median C8-T1 Nml Nml Nml Nml Nml Right 1stDorInt Ulnar C8-T1 Nml Nml Nml Nml Nml Right PronatorTeres Median C6-7 Nml Nml Nml Nml Nml Right BrachioRad Radial C5-6 Nml Nml Nml Nml Nml Right Ext Indicis Radial (Post Int) C7-8 Nml Nml Nml Nml Nml Right Ext Digitorum Radial (Post Int) C7-8 Nml Nml Nml Nml Nml MTDD
== END 2023-08-11 09:04 | disposition home or self-care (01) ==
LOC: ANHNEURO 09:04
PROVIDERS: PCP Physician Assistant; Visit Provider Physician Assistant
DX: G56.22 Lesion of ulnar nerve, left upper limb (principal)
CPT/HCPCS: 95886; 95911

== ENCOUNTER 2024-01-27 13:03 | Outpatient (NON) | payer OTHER, SELFPAY | END 2024-01-27 13:04 | disposition home or self-care (01) | LOC: ANHGOSHLAB 13:04 | PROVIDERS: PCP Physician Assistant; Visit Provider Otolaryngology | DX: J32.9 Chronic sinusitis, unspecified (principal) | CPT/HCPCS: 87070; 87075; 87076; 87077; 87185; 87205 ==

== ENCOUNTER 2024-02-26 12:16 | Outpatient (NON) | payer OTHER, SELFPAY | END 2024-02-26 12:17 | disposition home or self-care (01) | LOC: ANHGOSHLAB 12:17 | PROVIDERS: PCP Physician Assistant; Visit Provider Otolaryngology | DX: J32.9 Chronic sinusitis, unspecified (principal) | CPT/HCPCS: 87070; 87075; 87077; 87186; 87205 ==

== ENCOUNTER 2024-03-28 08:56 | Outpatient (CLI) | payer OTHER, SELFPAY ==
--- NOTE | ~2024-03-28 | CT_ITS ---
EXAMINATION: CT sinus wo con DATE: 03/28/2024 09:41 INDICATION: Facial pain, pressure. Congestion. History of surgery. TECHNIQUE: Computed tomography (CT) of the paranasal sinuses was performed without contrast. Iterativ e reconstruction technique was employed. Exam dose: 336.21 mGy-cm total exam DLP. COMPARISON: 04/16/2023 CT sinuses FINDINGS: Status post bilateral nasal antral windows and partial ethmoidectomies. Abdomen 2 x 2.7 cm polypoid filling defect of the lower aspect of the right maxillary sinus. There is patchy opacification of occasional ethmoid air cells bilaterally. The paranasal sinuses are otherwise clear. Normal development and aeration of the mastoid air cells. IMPRESSION: Status post bilateral nasal antral windows and partial ethmoidectomies Large polypoid soft tissue density of the lower right maxillary sinus and patchy opacification of tete ateral ethmoid air cells. Reviewed, dictated and finalized at [facility]. Reviewed, dictated and finalized at location B. IMPRESSION: Status post bilateral nasal antral windows and partial ethmoidecto mies Large polypoid soft tissue density of the lower right maxillary sinus and patch y opacification of bilateral ethmoid air cells.
== END 2024-03-28 08:57 | disposition home or self-care (01) ==
LOC: ANHIMG 08:58
PROVIDERS: PCP Physician Assistant; Visit Provider Otolaryngology
DX: J32.9 Chronic sinusitis, unspecified (principal); J33.8 Other polyp of sinus; J34.89 Other specified disorders of nose and nasal sinuses; Z98.890 Other specified postprocedural states
CPT/HCPCS: 70486

== ENCOUNTER 2024-05-23 12:27 | Outpatient (CLI) | payer OTHER, SELFPAY ==
--- NOTE | 2024-05-23 12:43 | ECG_ITS ---
Test Date: 2024-05-23 12:53:07 Measurements Intervals Spencer Rate: 103 P: 32 MS: 160 QRS: 45 QRSD: 103 T: 5 QT: 341 QTc: 447 Interpretive Statements SINUS TACHYCARDIA MINIMAL Q WAVES- INFERIOR LEADS BASELINE ARTIFACT- I, II, III, AVL, AVF, V3 BORDERLINE ECG No previous ECG available for comparison Electronically Signed On 05-23-2024 17:57:16 CDT by Florian Rayo D.O.
== END 2024-05-23 12:28 | disposition home or self-care (01) ==
LOC: ANHSURGERY 12:30
PROVIDERS: PCP Physician Assistant; Visit Provider Otolaryngology
DX: I10 Essential (primary) hypertension (principal); Z01.818 Encounter for other preprocedural examination; R94.31 Abnormal electrocardiogram [ECG] [EKG]
CPT/HCPCS: 93005

== ENCOUNTER 2024-07-14 08:51 | Emergency (ER) | payer OTHER, SELFPAY ==
--- NOTE | 2024-07-14 08:55 | ED.URI ---
HPI - URI/Sore Throat General Chief Complaint: Upper Respiratory Infection Stated Complaint: Sinus Time Seen by Provider: 07/14/24 08:59 Source: patient, RN notes reviewed and old records reviewed Mode of arrival: ambulatory Limitations: no limitations History of Present Illness HPI Narrative: 33-year-old female presents to the [facility] with complaints of sinus congestion, rhinorrhea that started on Thursday, 3 days. Denies fevers. Has a history of chronic sinusitis Reports that she cannot take allergy medication Has not used any moqr-chf-[id number] products Onset (ago): day(s) (3) Related Data Home Medications Medication Instructions Recorded Confirmed famotidine 40 mg tablet 40 mg PO DAILY 08/06/23 07/14/24 lisinopril 20 mg tablet 20 mg PO DAILY 08/06/23 07/14/24 buspirone 15 mg tablet 15 mg PO BID 05/20/24 07/14/24 flunisolide 25 mcg (0.025 %) nasal 1 - 2 spray intranasal BID PRN 05/20/24 07/14/24 spray Allergy Symptoms omega 3-rlr-tny-fish oil 1,200 mg 1 cap PO DAILY 05/20/24 07/14/24 (144 mg-216 mg) capsule (Fish Oil) Allergies Allergy/AdvReac Type Severity Reaction Status Date / Time iohexol Allergy Severe Anaphylactic Verified 07/14/24 08:56 [From contrast - CT, X-RAY] Shock Sulfa (Sulfonamide AdvReac Severe Rash Verified 07/14/24 08:56 Antibiotics) Latex, Natural Rubber AdvReac Unknown Rash Verified 07/14/24 08:56 Review of Systems Review of Systems: All systems reviewed & are unremarkable except as noted in HPI and below Constitutional: Constitutional: Reports no additional constitutional complaints Eyes: Eyes: Reports no additional eye complaints ENT: Reports as per HPI Cardiovascular: Cardiovascular: Reports no additional cardiovascular complaints, Denies chest pain and Denies dyspnea Respiratory: Respiratory: Reports no additional respiratory complaints, Denies chest congestion, Denies cough and Denies dyspnea Gastrointestinal: Gastrointestinal: Reports no additional gastrointestinal complaints, Denies abdominal pain, Denies nausea and Denies vomiting Musculoskeletal: Musculoskeletal: Reports no additional musculoskeletal complaints Integumentary/Breasts: Skin/Breast: Reports system reviewed and no additional complaints, except as docu Neurologic: Reports system reviewed and no additional complaints, except as documented Psychiatric: Psychiatric: Reports no additional psychiatric complaints Allergic/Immunologic: Allergic/Immunologic: Reports no additional allergic/immunologic complaints PMFSH Past Medical History Medical History Acute otalgia Hypertension Kidney stones Morbid obesity with BMI of 60.0-69.9, adult Otalgia of both ears Surgical History Surgical History No pertinent past surgical history Social History Social History Smoking status: Never smoker Alcohol intake: never Substance use: never Substance use type: does not use Lack of Transportation: No Lack of Food: Never True Current Housing: I Have Housing Concerned About Future Housing: No Difficulty Paying Gas/Electric Bills: No Difficulty Paying for Meds: No Currently Unemployed: No Education: Trade/Vocational Certificate Difficulty w/ Childcare or Family Care: YES Living arrangements: with family Spiritual care concerns: No Comments At the time of my signature, I reviewed and agree with the nursing past medical, surgical, social, and family history. There is no relevant family history pertinent to the patient complaint. Exam Const: General: cooperative, healthy appearing, comfortable, no acute distress, well developed, alert and well nourished Nutritional Appearance: well nourished and obese Orientation/consciousness: patient oriented x3 Limitations: no limitations HENMT: Head: normal to inspection Ears: heari
[2024-07-14 08:58] VITALS: BP 123/72; PULSE 86; RESP 19; TEMP 36.6; O2SAT 100
== END 2024-07-14 09:15 | disposition home or self-care (01) ==
PROVIDERS: Emergency Provider Nurse Practitioner; PCP Physician Assistant
DX: J32.9 Chronic sinusitis, unspecified (principal); I10 Essential (primary) hypertension; E66.01 Morbid (severe) obesity due to excess calories; Z68.41 Body mass index [BMI] 40.0-44.9, adult
CPT/HCPCS: 99213; G0463

== ENCOUNTER 2024-08-16 10:52 | Outpatient (CLI) | payer OTHER, SELFPAY ==
--- NOTE | ~2024-08-16 | US_ITS ---
HISTORY: HERNIA OF ANTERIOR OF ABD WALL COMPARISON: None FINDINGS: Multiple static and cine images were performed of the soft tissues overlying the umbilicus in both Va lsalva and at rest. No discrete hernia defect is appreciated on the submitted images. IMPRESSION: No discrete fascial defect appreciated on the submitted ultrasound images. Reviewed, dictated and finalized at location A.
== END 2024-08-16 10:53 | disposition home or self-care (01) ==
PROVIDERS: PCP Physician Assistant; Visit Provider Physician Assistant
DX: K43.9 Ventral hernia without obstruction or gangrene (principal)
CPT/HCPCS: 76705

== ENCOUNTER 2024-08-27 13:15 | Emergency (ER) | payer OTHER, SELFPAY ==
--- NOTE | ~2024-08-27 | XR_ITS ---
XR chest 2V 08/27/2024 13:59 Indication: Cough. Low oxygen saturation. Procedure: 2 view chest Comparison: No prior studies for comparison. Findings: Subtle right basilar airspace disease, suspicious for pneumonia. No pleural effusion. Heart size normal. Impression: 1: Subtle right basilar infiltrates, suspicious for pneumonia. Reviewed, dictated and finalized at location B. Impression: 1: Subtle right basilar infiltrates, suspicious for pneumonia.
[2024-08-27 13:29] VITALS: BP 119/62; PULSE 95; RESP 16; TEMP 37.7; O2SAT 91
--- NOTE | 2024-08-27 13:39 | ED.URI ---
HPI - URI/Sore Throat General Chief Complaint: Upper Respiratory Infection Stated Complaint: cough,loss of voice,clogged ears Time Seen by Provider: 08/27/24 13:39 Source: patient Mode of arrival: ambulatory Limitations: no limitations History of Present Illness HPI Narrative: 33-year-old female presents with complaint of cough, chest congestion, fatigue for 1 week. Reports she had fever 1st 2-3 days of symptoms not resolved. Taking upis-cce-wcvsyke cough medications without relief of symptoms. Reports anterior chest pain with coughing. No shortness of breath. All systems reviewed and negative except as noted above. Related Data Home Medications Medication Instructions Recorded Confirmed famotidine 40 mg tablet 40 mg PO DAILY 08/06/23 08/27/24 lisinopril 20 mg tablet 20 mg PO DAILY 08/06/23 08/27/24 buspirone 15 mg tablet 15 mg PO BID 05/20/24 08/27/24 omega 9-fxt-mkc-fish oil 1,200 mg 1 cap PO DAILY 05/20/24 08/27/24 (144 mg-216 mg) capsule (Fish Oil) Allergies Allergy/AdvReac Type Severity Reaction Status Date / Time iohexol Allergy Severe Anaphylactic Verified 08/27/24 13:25 [From contrast - CT, X-RAY] Shock Latex, Natural Rubber AdvReac Severe Rash Verified 08/27/24 13:25 Sulfa (Sulfonamide AdvReac Severe Rash Verified 08/27/24 13:25 Antibiotics) Review of Systems Review of Systems: CONSTITUTIONAL: Denies fever, chills, or sweats. reports fatigue. EYES: Denies visual changes, redness, or discharge. ENT: reports rhinorrhea, congestion. Denies sore throat, or otalgia. CARDIOVASCULAR: Denies chest pain, palpitations, or edema. RESPIRATORY: Reports cough. Denies dyspnea. GASTROINTESTINAL: Denies abdominal pain, nausea, vomiting, or diarrhea. GENITOURINARY: Denies dysuria or hematuria. SKIN: Denies rash or itching. MUSCULOSKELETAL: Denies back pain, joint pain, or myalgia. NEUROLOGIC: Denies headache, numbness, or weakness. PSYCHIATRIC: Denies anxiety or depression. All other systems reviewed are negative, except as documented in HPI. [facility] Past Medical History Medical History Acute otalgia Hypertension Kidney stones Morbid obesity with BMI of 60.0-69.9, adult Otalgia of both ears Surgical History Surgical History No pertinent past surgical history Social History Social History Smoking status: Never smoker Alcohol intake: never Substance use: never Substance use type: does not use Lack of Transportation: No Lack of Food: Never True Current Housing: I Have Housing Concerned About Future Housing: No Difficulty Paying Gas/Electric Bills: No Difficulty Paying for Meds: No Currently Unemployed: No Education: Trade/Vocational Certificate Difficulty w/ Childcare or Family Care: YES Living arrangements: with family Spiritual care concerns: No Comments At time of signature, agree with nursing past medical, surgical, social and family history. There is no relevant family history pertinent to the presenting complaint. Exam Narrative: GENERAL: This is a well-nourished, well-developed patient, Patient ill-appearing but in no acute distress HEAD: normocephalic, atraumatic. EYES: PERRL. Sclera clear/white. Vision is grossly intact. EARS: External ears normal, auditory canals clear and without drainage, TMs normal without perforation. Hearing grossly intact. NOSE: External nose normal with no obvious nasal discharge, nares without redness, no rhinorrhea. THROAT: Mucous membranes moist, posterior pharynx clear. NECK: Neck supple, non-tender without lymphadenopathy, masses or thyromegaly. CARDIOVASCULAR: Regular rate and rhythm without murmurs, gallops, or rubs. RESPIRATORY: crackles to bilateral lower lung sierra, worse to right. Breath sounds equal bilaterally. No wheezes, rales, or rhonchi.
== END 2024-08-27 14:27 | disposition home or self-care (01) ==
PROVIDERS: Emergency Provider Nurse Practitioner Family; PCP Physician Assistant
DX: J18.9 Pneumonia, unspecified organism (principal); I10 Essential (primary) hypertension; E66.01 Morbid (severe) obesity due to excess calories; Z68.41 Body mass index [BMI] 40.0-44.9, adult
CPT/HCPCS: 71046; 99213; G0463

== ENCOUNTER 2024-10-17 09:18 | Emergency (ER) | payer OTHER, SELFPAY ==
--- NOTE | ~2024-10-17 | XR_ITS ---
Clinical Indication: Cough PA and lateral views of the chest: Comparison: 08/27/2024 Findings: The lungs are clear, without evidence of focal consolidation or pleural effusion. Cardiome diastinal silhouette is within normal limits. Bones and soft tissues are unremarkable. Impression: Normal chest. Reviewed, dictated and finalized at location . COMBER Impression: Normal chest.
[2024-10-17 09:25] VITALS: BP 125/78; PULSE 75; RESP 16; TEMP 36.6; O2SAT 100
--- NOTE | 2024-10-17 09:42 | ED.URI ---
HPI - URI/Sore Throat General Chief Complaint: Upper Respiratory Infection Stated Complaint: Cough Time Seen by Provider: 10/17/24 09:43 Source: patient, RN notes reviewed and old records reviewed Mode of arrival: ambulatory Limitations: no limitations History of Present Illness HPI Narrative: Patient complains of 2-3 months of chest wall pain. She reports that she has been treated twice for pneumonia, coughing has stopped. She reports that chest wall pain has not stopped. She reports that it is worse with movement and palpation. She denies any shortness of breath. Says taking Tylenol did not help her symptoms, says she is unable to tolerate ibuprofen. She denies any injury or trauma. She voices no other concerns or complaints today. She is in no distress Related Data Home Medications Medication Instructions Recorded Confirmed famotidine 40 mg tablet 40 mg PO DAILY 08/06/23 10/17/24 lisinopril 20 mg tablet 20 mg PO DAILY 08/06/23 10/17/24 buspirone 15 mg tablet 15 mg PO BID 05/20/24 10/17/24 omega 7-xtx-ljc-fish oil 1,200 mg 1 cap PO DAILY 05/20/24 10/17/24 (144 mg-216 mg) capsule (Fish Oil) Allergies Allergy/AdvReac Type Severity Reaction Status Date / Time iohexol Allergy Severe Anaphylactic Verified 08/27/24 13:25 [From contrast - CT, X-RAY] Shock Latex, Natural Rubber AdvReac Severe Rash Verified 08/27/24 13:25 Sulfa (Sulfonamide AdvReac Severe Rash Verified 08/27/24 13:25 Antibiotics) Review of Systems Review of Systems: All systems reviewed & are unremarkable except as noted in HPI and below Constitutional: Constitutional: Reports no additional constitutional complaints ENT: Reports system reviewed and no additional complaints, except as documented Cardiovascular: Cardiovascular: Reports no additional cardiovascular complaints Respiratory: Respiratory: Reports no additional respiratory complaints and Reports pain on inspiration Gastrointestinal: Gastrointestinal: Reports no additional gastrointestinal complaints Musculoskeletal: Musculoskeletal: Reports other [facility] Past Medical History Medical History Acute otalgia Hypertension Kidney stones Morbid obesity with BMI of 60.0-69.9, adult Otalgia of both ears Surgical History Surgical History No pertinent past surgical history Social History Social History Smoking status: Never smoker Alcohol intake: never Substance use: never Substance use type: does not use Lack of Transportation: No Lack of Food: Never True Current Housing: I Have Housing Concerned About Future Housing: No Difficulty Paying Gas/Electric Bills: No Difficulty Paying for Meds: No Currently Unemployed: No Education: Trade/Vocational Certificate Difficulty w/ Childcare or Family Care: YES Living arrangements: with family Spiritual care concerns: No Comments At the time of my signature, I reviewed and agree with the nursing past medical, surgical, social, and family history. There is no relevant family history pertinent to the patient complaint. Exam Const: General: cooperative, no acute distress, alert and awake Orientation/consciousness: oriented to person, oriented to place and oriented to time HENMT: Head: normal to inspection Mouth: Yes moist mucous membranes Resp: Effort & Inspection: normal respiratory effort and able to speak in complete sentences Auscultation: clear to auscultation bilaterally, no crackles, no rales, no rhonchi and no wheezes Other: Reproducible chest wall pain on palpation Cardio: Palpation: normal PMI Rate: regular rate Rhythm: regular rhythm Heart sounds: S1 normal heart sound present and S2 normal heart sound present Neuro: General: oriented to person, oriented to place and oriented to time Cranial nerves: Yes CN's II-XII intact bilaterally Psych: Appearance: grossly normal Thought process: Normal thought process present Insight: Good insight present (Psych) Judgement: Good judgement present (Psych) Course Course Level of Care: Express Care Visit Vital Signs Vital signs: Vital Signs Temperature 97.8 F 10/17/24 09:25 Pulse Rate 75 10/17/24 09:25 Respiratory Rate 16 10/17/24 09:25 Blood Pressure 125/78 10/17/24 09:25 Pulse Oximetry 100 10/17/24 09:25 Oxygen Delivery Room Air 10/17/24 09:25 Temperature 97.8 F 10/17/24 09:25 Pulse Rate 75 10/17/24 09:25 Respiratory Rate 16 10/17/24 09:25 Blood Pressure 125/78 10/17/24 09:25 Pulse Oximetry 100 10/17/24 09:25 Oxygen Delivery Room Air 10/17/24 09:25 Reviewed MDM - URI/Sore Throat MDM Narrative Medical decision making narrative: Patient treated twice for pneumonia, lingering chest wall pain, cough resolved. Start steroids. Patient implored to follow with primary care provider. Discharge instructions reviewed with patient, as well as provided in writing per nursing staff. The instructions also include specific and strict return/GO TO THE ER as well as f/u information. All questions have been answered, and the patient deny any further questions with discharge and discharge plan. Some parts of this dictation were generated by voice recognition software and may contain typographical and/or grammatical inaccuracies. Differential Diagnosis Differential diagnosis: Likely upper respiratory infection, viral infection and bronchitis Medical Records Attestation: I reviewed the patient's medical records. Imaging Data Attestation: I personally reviewed and interpreted this imaging study as follows: My impression: No acute finding Radiologist's impression: [facility] [address] [place] [address] XRay Report Signed Patient: Yanni Marroquin : 1990 MR#: [id number] Age: 34 Acct:[id number] Loc: [facility] ADM Date: 10/17/24Attending Dr: Ordering Physician: Sherry Mckeon FNP Date of Service: 10/17/24 Procedure(s): XR chest 2V Accession Number(s): [id number] cc: Sherry Mckeon FNP; Denice, Syeda NICK~ Clinical Indication: Cough PA and lateral views of the chest: Comparison: 08/27/2024 Findings: The lungs are clear, without evidence of focal consolidation or pleural effusion. Cardiomediastinal silhouette is within normal limits. Bones and soft tissues are unremarkable. Impression: Normal chest. Reviewed, dictated and finalized at [facility]. GENETIC TECHNOLOGIST Dictated By: Jamey Galloway MD 10/17/24955 Signed By: <Electronically signed by Jamey Galloway MD in OV> 10/17/24955 Discharge Plan Discharge Clinical Impression: Chest wall pain Patient Disposition: Home, Self-Care Condition: Stable Instructions: Antibiotic Form, Chest Pain (ED) Additional Instructions: Take medications as prescribed. Follow with primary care provider. Emergency department for new or worse symptoms Patient Language: Senegalese Prescriptions: New prednisone 50 mg tablet 50 mg PO DAILY Qty: 5 0RF No Action lisinopril 20 mg tablet 20 mg PO DAILY famotidine 40 mg tablet 40 mg PO DAILY buspirone 15 mg tablet 15 mg PO BID omega 0-ndi-kix-fish oil [Fish Oil] 1,200 (144-216) mg Capsule 1 cap PO DAILY Follow-up/Referrals: Denice,SANDOVAL Landa [Primary Care Provider] - 1 Week Time of Disposition: 10:20
== END 2024-10-17 10:36 | disposition home or self-care (01) ==
PROVIDERS: Emergency Provider Nurse Practitioner Family; PCP Physician Assistant
DX: R07.89 Other chest pain (principal); I10 Essential (primary) hypertension; E66.01 Morbid (severe) obesity due to excess calories; Z68.39 Body mass index [BMI] 39.0-39.9, adult
CPT/HCPCS: 71046; 99213; G0463

== ENCOUNTER 2025-07-06 09:18 | Emergency (ER) | payer OTHER, SELFPAY ==
--- NOTE | 2025-07-06 09:23 | ED.URI ---
HPI - URI/Sore Throat General Chief Complaint: Upper Respiratory Infection Stated Complaint: Congestion Time Seen by Provider: 07/06/25 09:20 Source: patient Mode of arrival: ambulatory Limitations: no limitations History of Present Illness HPI Narrative: Patient is a 34-year-old female who presents with 10 days of congestion, sinus pressure, sinus pain. Patient states she coughs up mucus in the morning but does not cough throughout the day. Patient has not taken anything for symptoms. Patient had pneumonia last August. Related Data Home Medications ?Medication ?Instructions ?Recorded ?Confirmed ?Last Taken ?Type famotidine 40 mg tablet 40 mg PO DAILY 08/06/23 10/17/24 Unknown History lisinopril 20 mg tablet 20 mg PO DAILY 08/06/23 10/17/24 Unknown History buspirone 15 mg tablet 15 mg PO BID 05/20/24 10/17/24 Unknown History omega 5-wiu-ruz-fish oil 1,200 mg 1 cap PO DAILY 05/20/24 10/17/24 Unknown History (144 mg-216 mg) capsule (Fish Oil) Allergies Allergy/AdvReac Type Severity Reaction Status Date / Time iohexol (From contrast - CT, Allergy Severe Anaphylactic Verified 07/06/25 09:26 X-RAY) Shock Latex, Natural Rubber AdvReac Severe Rash Verified 07/06/25 09:26 Sulfa (Sulfonamide AdvReac Severe Rash Verified 07/06/25 09:26 Antibiotics) Review of Systems Review of Systems: All systems reviewed & are unremarkable except as noted in HPI and below Constitutional: Constitutional: Denies chills, Denies fatigue, Denies fever(s), Denies headache(s), Denies malaise and Denies weakness Eyes: Eyes: Denies blurry vision, Denies itchy eyes and Denies loss of vision ENT: Denies otalgia, Denies headache(s), Reports nasal congestion, Reports sinus pain, Reports sinus pressure and Denies sore throat Cardiovascular: Cardiovascular: Denies chest pain, Denies irregular heart rhythm and Denies dyspnea Respiratory: Respiratory: Reports cough and Denies dyspnea Gastrointestinal: Gastrointestinal: Denies abdominal pain, Denies diarrhea, Denies nausea and Denies vomiting Musculoskeletal: Musculoskeletal: Denies back pain, Denies myalgias and Denies arthralgias Integumentary/Breasts: Skin/Breast: Denies pruritus and Denies rash Neurologic: Denies headache(s), Denies loss of vision and Denies weakness Psychiatric: Psychiatric: Reports no additional psychiatric complaints Endocrine: Endocrine: Denies fatigue Allergic/Immunologic: Allergic/Immunologic: Denies itchy eyes PMFSH Past Medical History Medical History Morbid obesity with BMI of 60.0-69.9, adult Kidney stones Hypertension Otalgia of both ears Acute otalgia Surgical History Surgical History No pertinent past surgical history Social History Social History Smoking status: Never smoker Alcohol intake: never Substance use: never Substance use type: does not use Lack of Transportation: No Lack of Food: Never True Current Housing: I Have Housing Concerned About Future Housing: No Difficulty Paying Gas/Electric Bills: No Difficulty Paying for Meds: No Currently Unemployed: No Education: Trade/Vocational Certificate Difficulty w/ Childcare or Family Care: YES Living arrangements: with family Spiritual care concerns: No Comments At time of signature, agree with nursing past medical, surgical, social and family history. There is no relevant family history pertinent to the presenting complaint. Exam Const: General: cooperative, healthy appearing, comfortable, no acute distress and well nourished Nutritional Appearance: well nourished Orientation/consciousness: patient oriented x3 Limitations: no limitations HENMT: Head: normal to inspection, normocephalic and atraumatic Ears: hearing grossly normal bilaterally, external ears normal, TM's normal bilaterally, EAC's normal and no periauricular adenopathy Face/Nose/Sinus: Normal external nose present, Abnormal mucous membranes and turbinates present erythematous bilateral and diffuse, normal facial exam, face symmetric and Facial tenderness on exam of face and sinuses Face and sinus: normal facial exam, face symmetric and sinus tenderness frontal and maxillary Mouth: Yes Normal oral and palatal mucosa present, Yes lip normal, Yes tongue normal, Yes Normal salivary glands and ducts present, Yes oropharynx normal and Yes moist mucous membranes Teeth and gingiva: dentition normal Throat: posterior oropharynx normal, tonsils normal and uvula midline Eyes: General: appearance normal, both eyes and all related structures Alignment and Position: alignment normal and position normal Periorbital: periorbital findings normal Eyelids: eyelids normal Pupils: Equal, round and reactive pupils present Neck: Neck: normal visual inspection, full ROM, no lymphadenopathy and supple Chest: Chest palpation & inspection: normal inspection of the chest and normal palpation of entire chest wall Resp: Effort & Inspection: normal respiratory effort and able to speak in complete sentences Auscultation: clear to auscultation bilaterally, no crackles, no rales, no rhonchi and no wheezes Cardio: Rate: regular rate Rhythm: regular rhythm Heart sounds: S1 normal heart sound present and S2 normal heart sound present GI: Inspection: normal to inspection Skin: General skin exam: normal color and no rashes or lesions noted Neuro: General: patient oriented x3 and moves all extremities Cranial nerves: Yes Equal, round and reactive pupils present Speech: normal speech Gait exam (Neuro): Normal gait present Extrem: General: normal to inspection, full ROM and no edema Psych: Appearance: grossly normal and well kempt Mental Status: mental status grossly normal Speech and movement: Normal speech and movement present Affect: normal affect Attitude: cooperative Thought process: Normal thought process present Course Course Emergency Course: Discharge instructions reviewed with patient, as well as provided in writing per nursing staff. The instructions also include specific and strict return/GO TO THE ER as well as f/u information. All questions have been answered, and the patient deny any further questions with discharge and discharge plan. Portions of this record may have been created with voice recognition software Level of Care: Express Care Visit Vital Signs Vital signs: Reviewed MDM - URI/Sore Throat MDM Narrative Medical decision making narrative: Based on exam findings of tenderness on palpation of sinuses and length of symptoms will treat with Augmentin. Discussed the importance of using Flonase and Claritin Pt well hydrated appearing, in no respiratory distress, hemodynamically stable. Recommend supportive care. The patient is stable at time of discharge the clinical impression was discussed and the patient was given the opportunity to ask questions, which were addressed as completely as possible given the information available at present. Anticipatory guidance and return to care precautions were discussed and the importance of primary care follow-up was stressed and encouraged. The patient voiced understanding of the plan, indications to return, and the need for follow-up. Exam findings show no acute concerns or changes Patient is appropriate for outpatient treatment and follow-up. Differential diagnosis considered: Paez virus, strep pharyngitis, allergic rhinitis, upper respiratory tract infection, sinusitis, rhinosinusitis, nasopharyngitis. viral pharyngitis, otitis media, otitis externa, otitis effusion, foreign body, cerumen impaction, viral syndrome, and influenza.? Medical Records Attestation: I reviewed the patient's medical records. Discharge Plan Discharge Clinical Impression: Sinusitis Qualifiers: Sinusitis location: pansinusitis Chronicity: acute Recurrence: non-recurrent Qualified Code(s): J01.40 - Acute pansinusitis, unspecified Patient Disposition: Home Condition: Stable Instructions: Sinusitis (ED) Additional Instructions: Symptomatic treatment of a sinus infection aims to relieve symptoms. These treatments do not shorten the duration of illness. Nonprescription pain medications, such as acetaminophen (eg, Tylenol) or ibuprofen (eg, Motrin, Advil), are recommended for pain. Flushing the nose and sinuses with a saline solution several times per day has been proven to decrease pain associated with congestion and shorten the duration of symptoms. Nasal steroids (such as Flonase, 2 sprays in each nostril daily) can help to reduce swelling inside the nose, usually within two to three days. These drugs have few side effects and relieve symptoms in most people. Oral decongestants (pseudoephedrine and phenylephrine) may be helpful if you have associated symptoms of ear pain or fullness. Nasal decongestant sprays, including oxymetazoline (Afrin) and phenylephrine (Ady-Synephrine), can be used to temporarily treat congestion. However, these sprays should not be used for more than two to three days due to the risk of rebound congestion (when the nose becomes congested constantly unless the medication is used repeatedly), possible addiction, and long-term consequences of frequent use, including persistent nasal dryness and crusting, which is very difficult to treat once it has developed. Medications to thin secretions (such as guaifenesin) may help to clear mucus. Please follow-up with your primary care doctor in the next 1-2 days. If you cannot follow-up with your primary care doctor please go to the ED for any urgent issues. If you have any worsening of symptoms or any other concerns please go to the ED immediately. Patient Language: Setswana Prescriptions: New amoxicillin-pot clavulanate 875-125 mg tablet 1 tablet PO Q12H 10 Days Qty: 20 0RF No Action lisinopril 20 mg tablet 20 mg PO DAILY famotidine 40 mg tablet 40 mg PO DAILY buspirone 15 mg tablet 15 mg PO BID omega 9-vzt-prj-fish oil [Fish Oil] 1,200 (144-216) mg Capsule 1 cap PO DAILY Follow-up/Referrals: Denice,SANDOVAL Landa [Primary Care Provider, Unknown] - 3 Days Time of Disposition: 09:49
[2025-07-06 09:25] VITALS: BP 120/78; PULSE 86; RESP 18; TEMP 36.7; O2SAT 99
== END 2025-07-06 09:53 | disposition home or self-care (01) ==
PROVIDERS: Emergency Provider Nurse Practitioner Family; PCP Physician Assistant
DX: J01.40 Acute pansinusitis, unspecified (principal); I10 Essential (primary) hypertension; E66.01 Morbid (severe) obesity due to excess calories; Z68.41 Body mass index [BMI] 40.0-44.9, adult
CPT/HCPCS: 99213; G0463

== ENCOUNTER 2025-07-19 11:42 | Outpatient (NON) | payer OTHER, SELFPAY | END 2025-07-19 11:43 | disposition home or self-care (01) | LOC: ANHGOSHLAB 11:42 | PROVIDERS: PCP Physician Assistant; Visit Provider Otolaryngology | DX: J32.9 Chronic sinusitis, unspecified (principal) | CPT/HCPCS: 87070; 87075; 87186; 87205 ==

== ENCOUNTER 2025-09-23 10:56 | Outpatient (CLI) | payer OTHER, SELFPAY ==
--- NOTE | ~2025-09-23 | CT_ITS ---
EXAMINATION: CT sinus wo con DATE: 09/23/2025 11:10 INDICATION: Acute pansinusitis, unspecified. TECHNIQUE: Computed tomography (CT) of the paranasal sinuses was performed without intravenous contrast. Iterative reconstruction technique was employed. The dose-length product was 250.27 mGy-cm. COMPARISON: CT sinuses 03/28/2024 FINDINGS: The frontal sinuses are clear. There is mild mucosal thickening in the ethmoid sinuses. The sphenoid sinuses are clear. There is near complete opacification of right maxillary sinus. There is a mild mucosal thickening in left maxillary sinus. There is rightward deviation of anterior nasal septum and leftward deviation of posterior nasal septum. There are uncinectomies and ethmoidectomies. The ostiomeatal units are widely patent. IMPRESSION: 1. Mucosal thickening in the paranasal sinuses including near complete opacification of right maxillary sinus. 2. Rightward deviation of anterior nasal septum and leftward deviation of posterior nasal septum. Reviewed, dictated and finalized at location [facility] IMPRESSION: 1. Mucosal thickening in the paranasal sinuses including near complete opacific ation of right maxillary sinus. 2. Rightward deviation of anterior nasal septum and leftward deviation of poste rior nasal septum.
--- OUTSIDE RECORDS SUMMARY | 2025-09-23 10:59 | XMS_ITS | Clinical Summary ---
Author Organization [facility] Address Formerly [facility], [facility] [place] [address] Care Team Providers Care Supply Analyst Name Role Phone Amanda Miller MD Primary Care Provider [phone] Allergies Active Allergy Reactions Criticality Noted Date Comments Iodinated Contrast Media Other (see comment) Medium 06/14/2019 Swelling around the mouth, congestion, coughing Sulfa Antibiotics Rash Low 06/14/2019 Medications famotidine 20 MG tablet Take 1 tablet (20 mg total) by mouth 2 (two) times daily. 10 tablet 06/14/2019 Active loratadine (CLARITIN) 10 MG tablet Take 1 tablet (10 mg total) by mouth daily. 30 tablet 08/18/2020 Active Social History Tobacco Use Types Packs/Day Years Used Date Smoking Tobacco: Never Smokeless Tobacco: Never Alcohol Use Standard Drinks/Week Comments No 0 (1 standard drink = 0.6 oz pur e alcohol) AUDIT-C Answer Date Recorded Frequency of Alcohol Consumption Never 06/14/2019 Average Number of Drinks Not on file 019 Frequency of Binge Drinking Not on file 04/2019 Comments No Sex and Gender Information Value Date Recorded Sex Assigned at Not on file Legal Sex Female 10:50 PM [employer] Gender Identity Not on file Sexual Orientation Not on file Last Filed Vital Signs Vital Sign Reading Time Taken Comments Blood Pressure 148/96 08/18/2020 4:52 PM CDT Pulse 90 08/18/2020 4:52 PM CDT Temperature 36.6 C (97.9 F) 08/18/2020 12:55 PM CDT Respiratory Rate 18 08/18/2020 4:52 PM CDT Oxygen Saturation 98% 08/18/2020 4:52 PM CDT Inhaled Oxygen Concentration - - Weight 132.3 kg (291 lb 10.7 oz) 2019 12:55 PM CDT Height 165.1 cm (5' 5) 08/18/2020 12:5 5 PM CDT Body Mass Index 48.54 08/18/2020 12:55 PM CDT Plan of Treatment Health Maintenance Due Date Last Done Comments Cervical Cancer Screening Pap Smear (Age 30 to 64) Every 3 Years 1991 Annual Physical 1994 Hepatitis C 2009 DTaP, Tdap and Td Vaccines (1 - Tdap) 2010 03/28/1993, 04/10/1992, 01/23/1992, Additional history exists Hepatitis B Vaccines (1 of 3 - 19+ 3-dose series) 2010 HPV Vaccines (1 - 3-dose SCDM series) 2018 Cervical Cancer Screening Pap with HPV Testing (Age 30 to 64) Every 5 Years 2021 Cervical Cancer Screening with HPV 2021 COVID-19 Vaccine ( season) 2025 Influenza Adult (#1) 2025 Hepatitis A Vaccines Aged Out No long er eligible based on patient's age to complete this topic Meningococcal B Vaccine Aged Out No l onger eligible based on patient's age to complete this topic Meningococcal Vaccine Aged Out No amairani lin eligible based on patient's age to complete this topic Pneumococcal Vaccine: Pediatrics (0 to 5 Years) and At-Risk Patients (6 to 49 Years) Aged Out No longer eligible based on patient's age to complete this topic RSV Immunizations Under 20 Months Aged Out No longer eligible based on patient's age to complete this topic Insurance [id number] [facility] [place] [id number] [facility] MEDICAID C/O PROVIDER SERVICES [place] [id number] Care Teams Supply Analyst Relationship Specialty Start Date End Date Amanda Miller MD [address] [address] PCP - General FAMILY PRACTICE 06/03/20
--- OUTSIDE RECORDS SUMMARY | 2025-09-23 10:59 | XMS_ITS | Data Portability ---
Author Organization [facility] [place] Address [address] [place] [address] [place] [address] Care Team Providers Care Travel Money Advisor Name Role Phone GLADIS WILD Primary Care Provider Assessment Encounter Date Assessment Date Assessment LastModified by Organization Details LastModified Time 07/27/2023 07/27/2023 Annual gynecological exam performed. Patient will come back in a year unless there are new symptoms. [email or web address] Not available 07/27/2023 09:40:23 Plan of Treatment Reminders Order Date Submit Date Provider Last Modified By Organization Details Last Modified Time Details Appointments None recorded . Lab urinalys is, dipstick 2023 024 SHERMAN [place], [address], [place], [address], 4 10:52:21 urinalys is, dipstick 2022 023 ricarda [place], [address], [place], [address], 3 16:50:44 pregnanc y test, urine 2022 023 sharonda [place], [address], [place], [address], 3 17:29:19 Referral None recorded . Procedures None recorded . Surgeries None recorded . Imaging US, pelvis, complete 2022 023 vschroedter [place], [address], [address], [place], [address], 3 16:28:18 Medication Orders fluconaz ole 150 mg tablet 2023 024 [id number], [address], [place], [id number], 4 09:55:32 nystatin -triamci nolone 100,000 unit/gra m-0.1 % topical ointment 2023 024 [facility] #[id number], [address], [place], [id number], 4 09:55:26 Patient TargetsNo targets recorded. Patient InstructionsNo instructions recorded. Reason for Referral None Reported. Results Created Date Observation Date Name Description Value Unit Range Abnormal Flag Note LastModifiedBy Organization Detail LastModifiedTime 04/21/2004/21/2023 CT/GC AND TRICH OMONA S VAGIN LEIGH (RRNA ), SWAB chlamydia trachomatis, PCR Negati ve negati ve Not Available [facility] (Lab) [address], [place], [address], 04/22/2023 14:04:38 04/21/20 23 04/21/2023 CT/GC AND TRICH OMONA S VAGIN LEIGH (RRNA ), SWAB neisseria gonorrhoeae, PCR Negati ve negati ve Not Available [facility] (Lab) [address], [place], [address], 04/22/2023 14:04:38 04/21/20 23 04/21/2023 CT/GC AND TRICH OMONA S VAGIN LEIGH (RRNA ), SWAB trichomonas vaginalis ribosomal RNA (rrna) Negati ve negati ve Not Available [facility] (Lab) [address], [place], [address], 04/22/2023 14:04:38 04/21/20 23 04/21/2023 pregn charlene test, urine HCG negati ve Not Available [place] [address], [place], [address], 04/21/2023 17:29:08 04/21/20 23 04/21/2023 urina lysis , dipst ick Leukocytes neg Not Available [facility] sameer [address], [place], [address], 04/21/2023 16:46:03 04/21/20 23 04/21/2023 urina lysis , dipst ick Nitrite neg Not Available [place] [address], [place], [address], 04/21/2023 16:46:03 04/21/20 23 04/21/2023 urina lysis , dipst ick Urobilinogen neg Not Available [facility] nadiya [address], [place], [address], 04/21/2023 16:46:03 04/21/20 23 04/21/2023 urina lysis , dipst ick Protein neg Not Available [place] [address], [place], [address], 04/21/2023 16:46:03 04/21/20 23 04/21/2023 urina lysis , dipst ick pH 5 Not Available [place] [address], [place], [address], 04/21/2023 16:46:03 04/21/20 23 04/21/2023 urina lysis , dipst ick Specific [place] 1.005 Not Available [facility] [address], [place], [address], 04/21/2023 16:46:03 04/21/20 23 04/21/2023 urina lysis , dipst ick Ketone neg Not Available [place] [address], [place], [address], 04/21/2023 16:46:03 04/21/20 23 04/21/2023 urina lysis , dipst ick Bilirubin neg Not Available [facility] [address], [place], [address], 04/21/2023 16:46:03 04/21/20 23 04/21/2023 urina lysis , dipst ick Glucose neg Not Available [place] [address], [place], [address], 04/21/2023 16:46:03 04/21/20 23 04/21/2023 urina lysis , dipst ick Appearance clear Not Available [facility] [address], [place], [address], 04/21/2023 16:46:03 04/21/20 23 04/21/2023 urina lysis , dipst ick Color yellow Not Available [place] [address], [place], [address], 04/21/2023 16:46:03 07/27/20 23 07/27/2023 IMAGE GUIDE D PAP AND HPV REGAR DLESS image guided Pap, HPV regardless of Pap result SEE RESULT S BELOW CASE REPOR T: Cytol ogy Gynec ologi blaine Repor t Case: [id number] Autho ta g Provi chico: Jess Hawkins MD Colle cted: 07/27 1623 Order ing Locat ion: [place] [facility] Recei jose: 07/28 0717 First Scree n: Nacha mpass ak, Sivil ay, CT Speci men: Scree brie Pap - Image d, Cervi x STATE MENT OF ADEQU ACY: Satis facto ry for evalu ation Trans forma tion zone compo nent prese nt FINAL DIAGN OSIS: Negat bogdan for Intra epith elial Lesio n or Katina ybarra (NIL) . Elect georgie palomino leann d by Daphne moreno, [place], CT on 2022 at 5:53 PM ----- ----- ----- ----- ----- ----- ----- ----- ----- ----- ----- ----- ----- ----- ----- ----- ----- ---- HPV RESUL TS: HPV mRNA E6/E7 : No HPV mRNA Detec pernell NOTE: This high risk HPV mRNA assay detec ts fourt een high- risk HPV types (16, 18, 31, 33, 35, 39, 45, 51, 52, 56, 58, 59, 66, 68) witho ut diffe renti ation . COMME NT: This speci men was revie wed by a Cytot echno logis t and/o r Patho logis t (as indic ated in this repor t) after evalu ation using the Thinp rep Imagi ng Syste m. CLINI BLAINE INFOR MATIO N: Menst rual Statu s: LMP (if appli cable ): Clini blaine Histo ry/Pr eviou s Pap: Type of Neopl lalo (if appli cable ): Signi fican t Clini blaine Findi ngs: Other Histo ry: Hormo thony (if appli cable ): PAP EDUCA MASOOD L NOTE: The Pap Test is a scree brie test with an inher ent false negat bogdan rate. Liqui d-bas ed sampl ing may decre ase, but will not elimi vitaliy, false negat bogdan resul ts. A negat bogdan resul t does not precl ude the prese nce and/o r devel opmen t of disea se, since the prese nce of abnor mal cells in the sampl e depen ds on the locat ion of the lesio n and sampl ing techn ique. Je nued regul ar scree brie is the best metho d of cance r preve ntion . If repor pernell cytol ogic findi ng do not corre late with physi blaine and/o r histo rical findi ngs, [facility] myranda monty edmund ion is recom robert d, as bautistai josé leonard nted. Not Available [facility] (Lab) [address], [place], [address], 07/28/2023 18:57:21 02/15/20 24 02/15/2024 VAGIN ITIS/ VAGIN OSIS, DNA PROBE ivan sp. detection, direct probe Negati ve negati ve Not Available [facility] (Lab) [address], [place], [address], 02/16/2024 14:11:27 02/15/20 24 02/15/2024 VAGIN ITIS/ VAGIN OSIS, DNA PROBE gardnerella vag. detection, direct probe Negati ve negati ve Not Available [facility] (Lab) [address], [place], [address], 02/16/2024 14:11:27 02/15/20 24 02/15/2024 VAGIN ITIS/ VAGIN OSIS, DNA PROBE trichomonas vag. detection, direct probe Negati ve negati ve Not Available [facility] (Lab) [address], [place], [address], 02/16/2024 14:11:27 Result Notes None recorded. Problems Name Problem SNOMED Code Status Onset Date Resolution Date Notes Provider Name and Address Organization Details Recorded Time SNOMED CT Concept Active 2014 Encntr for general adult medical exam w/o abnormal findings; Recorded Elsewhere : No Locati on: [facility] So urce: EHR Chron ic: N Practic e ID: 0001 Bill able Time: 01:00:00 PM Not Available [facility] 0 18:47:[address] Concept Active 2014 Well woman check w/ abnormal finding;R ecorded Elsewhere : No Locati on: [facility] So urce: EHR Chron ic: N Practic e ID: 0001 Bill able Time: 01:00:00 PM Not Available [facility] 0 18:47:48 Blood leukocyte number above reference range 779448117 Active 2015 Elevated white blood cell count, unspecifi ed;Record ed Elsewhere : No Locati on: [facility] So urce: EHR Chron ic: N Practic e ID: 0001 Bill able Time: 01:45:00 PM Not Available [facility] 0 18:47:47 Pelvic and perineal pain 313654833 Active 2015 Pelvic and perineal pain;Amador rded Elsewhere : No Locati on: [facility] So urce: EHR Chron ic: N Practic e ID: 0001 Bill able Time: 03:45:00 PM Not Available [facility] 0 18:47:46 Disorder of intrauter ine contracep tive device Active 2015 [facility] compl of intrauter ine contracep tive device, init encntr;Re corded Elsewhere : No Locati on: [facility] So urce: EHR Chron ic: N Practic e ID: 0001 Bill able Time: 03:30:00 PM [facility] Available [facility] 0 18:47:48 Removal of intrauter ine device Active 2015 Encounter for removal of intrauter ine contracep tive device;Re corded Elsewhere : No Locati on: [facility] So urce: EHR Chron ic: N Practic e ID: 0001 Bill able Time: 01:45:00 PM Not Available [facility] 0 18:47:50 Amenorrhe a 98034001 Active 2016 Amenorrhe a;Recorde d Elsewhere : No Locati on: [facility] So urce: EHR Chron ic: N Practic e ID: 0001 Bill able Time: 09:15:00 AM Not Available [facility] 0 18:47:48 detection examinati on Active 2016 Encounter for test, result positive; Recorded Elsewhere : No Locati on: [facility] So urce: EHR Chron ic: N Practic e ID: 0001 Bill able Time: 09:15:00 AM Not Available [facility] 0 18:47:48 Secondary amenorrhe a 913156337 Active 2016 Secondary amenorrhe a;Practic e ID: 0001 Not Available [facility] 0 18:47:54 Uterine size for dates discrepan cy Active 2016 Uterine size-date discrepan cy, first trimester ;Recorded Elsewhere : No Locati on: [facility] So urce: EHR Chron ic: N Practic e ID: 0001 Bill able Time: 08:30:00 AM Not Available [facility] 0 18:47:47 Gestation period, 23 weeks 39996762 Active 2016 23 weeks gestation of ;Recorded Elsewhere : No Locati on: [facility] So urce: EHR Chron ic: N Practic e ID: 0001 Bill able Time: 01:30:00 PM Not Available [facility] 0 18:47:49 Placenta previa 23972157 Active 2016 Placenta previa specified as w/o hemor, second trimester ;Recorded Elsewhere : No Locati on: [facility] So urce: EHR Chron ic: N Practic e ID: 0001 Bill able Time: 01:30:00 PM Not Available [facility] 0 18:47:51 Normal in multigrav rubi 29794317891 4106 Active 2016 Encounter for suprvsn of normal , third trimester ;Recorded Elsewhere : No Locati on: [facility] So urce: EHR Chron ic: N Practic e ID: 0001 Bill able Time: 09:30:00 AM Not Available [facility] 0 18:47:46 Uterine size for dates discrepan cy Active 2016 Uterine size-date discrepan cy, third trimester ;Recorded Elsewhere : No Locati on: [facility] So urce: EHR Chron ic: N Practic e ID: 0001 Bill able Time: 11:30:00 AM Not Available [facility] 0 18:47:46 Gestation period, 32 weeks 2818137 Active 2016 32 weeks gestation of ;Recorded Elsewhere : No Locati on: [facility] So urce: EHR Chron ic: N Practic e ID: 0001 Bill able Time: 11:30:00 AM Not Available [facility] 0 18:47:[address] Concept Active 2016 Decreased movements , third trimester , unsp;Amador rded Elsewhere : No Locati on: [facility] So urce: EHR Chron ic: N Practic e ID: 0001 Bill able Time: 09:49:00 AM Not Available [facility] 0 18:47:46 Gestation period, 36 weeks 35641464 Active 2016 36 weeks gestation of ;Recorded Elsewhere : No Locati on: [facility] So urce: EHR Chron ic: N Practic e ID: 0001 Bill able Time: 09:49:00 AM Not Available [facility] 0 18:47:49 Insuffici ent weight gain of 61435245 Active 2016 Low weight gain in , third trimester ;Recorded Elsewhere : No Locati on: [facility] So urce: EHR Chron ic: N Practic e ID: 0001 Bill able Time: 11:30:00 AM Not Available [facility] 0 18:47:48 Gestation period, 37 weeks 58092900 Active 2016 37 weeks gestation of ;Recorded Elsewhere : No Locati on: [facility] So urce: EHR Chron ic: N Practic e ID: 0001 Bill able Time: 11:30:00 AM Not Available [facility] 0 18:47:50 Premature rupture of membranes 33725825 Active 2016 Full-term sadia ROM, unsp time betw rupture and onset labor;Pra ctice ID: 0001 Not Available [facility] 0 18:47:53 Single live from cage 201888116 Active 2016 Single live ;Pra ctice ID: 0001 Not Available [facility] 0 18:47:53 Gestation period, 38 weeks 44178753 Active 2016 38 weeks gestation of ;Practice ID: 0001 Not Available [facility] 0 18:47:56 Lochia finding Active 2016 Encounter for routine postpartu m follow-up ;Recorded Elsewhere : No Locati on: [facility] So urce: EHR Chron ic: N Practic e ID: 0001 Bill able Time: 09:45:00 AM Not Available [facility] 0 18:47:47 test negative 421407399 Active 2017 Encounter for test, result negative; Recorded Elsewhere : No Locati on: [facility] So urce: EHR Chron ic: N Practic e ID: 0001 Bill able Time: 01:30:00 PM Not Available [facility] 0 18:47:46 Insertion of intrauter ine contracep tive device Active 2017 Encounter for insertion of intrauter ine contracep tive device;Re corded Elsewhere : No Locati on: [facility] So urce: EHR Chron ic: N Practic e ID: 0001 Bill able Time: 01:30:00 PM Not Available [facility] 0 18:47:48 Contracep tive sheath status 963154822 Active 2017 Encounter for routine checking of intrauter ine contracep dev;Pract ice ID: 0001 Not Available [facility] 0 18:47:[address] Concept Active 2017 Encntr for advance scout exam (general) (routine) w/o abn findings; Recorded Elsewhere : No Locati on: [facility] So urce: EHR Chron ic: N Practic e ID: 0001 Bill able Time: 08:30:00 AM Not Available [facility] 0 18:47:47 Sexual function painful Active 2017 Dyspareun ia;Record ed Elsewhere : No Locati on: [facility] So urce: EHR Chron ic: N Practic e ID: 0001 Bill able Time: 11:15:00 AM Not Available [facility] 0 18:47:47 Procedure on genitouri nary system Active 2018 Encounter for surgical aftercare following surgery on the genitouri nary system;Re corded Elsewhere : No Locati on: [facility] So urce: EHR Chron ic: N Practic e ID: 0001 Bill able Time: 10:00:00 AM Not Available [facility] 0 18:47:46 Postopera tive care Active 2018 Encounter for surgical aftercare following surgery on the genitouri nary system;Re corded Elsewhere : No Locati on: [facility] So urce: EHR Chron ic: N Practic e ID: 0001 Bill able Time: 10:00:00 AM Not Available [facility] 0 18:47:46 Notes:Encounter for antenata l screening of mother Recorded Elsewhere: No Location: [facility] Source: EHR Chronic: N Practice ID: 0001 Billable Time: 01:30:00 PM Encounter for screening of mother Practice ID: 0001 Encounter for screening of mother Recorded Elsewhere: No Location: [facility] Source: EHR Chronic: N Practice ID: 0001 Billable Time: 08:15:00 AM Encounter for screening of mother Practice ID: 0001 Encounter for screening of mother Recorded Elsewhere: No Location: [facility] Source: EHR Chronic: N Practice ID: 0001 Billable Time: 08:45:00 AM Encounter for screening of mother Practice ID: 0001 Problem Notes None recorded. Procedures Surgical History Date Name Laterality Status Provider Name and Address Organization Details Recorded Time 08/04/20 19 Date of Last Pap Smear completed Tia Lockhart [facility] 02/15/2024 09:46:58 11/23/19 19 diagnostic laparoscopy completed Shobha Hurst [facility] 07/12/2020 16:15:05 [facility] 04/21/2023 15:55:34 Other completed [facility] 04/21/2023 15:55:34 tonsilectomy/ad enoids completed [facility] 04/21/2023 15:55:34 Imaging Results None recorded. Procedure Notes None recorded. Medical Equipment None Reported. Allergies Allergen ID Allergen Name Allergen Category Reaction Reaction Severity Criticality Documentation Date Start Date Code Code System Note Provider Name and Address Organization Details Recorded Time 70795 Substance with sulfonami de structure and antibacte rial mechanism of action (substanc e) medicatio n hives moderate Not available 10/26/2020 85444 8003 SNOMED Lore wood [facility] 3 15:55:21 28537 Iodinated contrast media (substanc e) medicatio n anaphylax is severe Not available 04/21/2023 83246 2003 SNOMED Lore Shari wood [facility] - [facility] 3 15:55:21 Medications Name Sig Start Date Stop Date Status Note LastModified by Organization Details LastModified Time cyclobenz aprine 10 mg tablet take 1 tablet by oral route 2 times every day 09/17 completed Prescrib ed Elsewher e: No Locat ion: [facility] odify By: shruthi baez DateTime : 03/17/20 17 09:30:00 AM Not Available Not Available Not Available Mirena 21 mcg/24 hr (up to 8 years) 52 mg intrauter ine device 04/21 completed Prescrib ed Elsewher e: Yes Loca tion: [facility] odify By: lyudmila mora DateTime : 12/21/19 18 01:30:00 PM Not Available Not Available Not Available buspirone 5 mg tablet TAKE 1 TABLET BY MOUTH TWICE DAILY DIRECTED active Not Available Not Available No t Available prednison e 10 mg tablet TAKE 1 TABLET BY MOUTH DAILY IN THE MORNING FOR 2 DAYS PRIOR TO SURGERY 04/21 completed Not Available Not Available Not Available doxycycli ne hyclate 100 mg capsule TAKE 1 CAPSULE BY MOUTH TWICE DAILY 02/14 completed Not Available Not Available Not Available clindamyc in HCl 300 mg capsule TAKE 1 CAPSULE BY MOUTH EVERY 8 HOURS active Not Available Not Available No t Available nystatin 100,000 unit/gram topical ointment APPLY TO THE AFFECTED AREA TWICE DAILY active Not Available Not Available No t Available fluconazo le 150 mg tablet TAKE 1 TABLET BY MOUTH NOW. REPEAT IN 72 HOURS NEEDED active Not Available Not Available No t Available lisinopri l 20 mg tablet TAKE 1 TABLET BY MOUTH EVERY DAY IN THE MORNING FOR HIGH BLOOD PRESSURE active Not Available Not Available No t Available famotidin e 40 mg tablet TAKE 1 TABLET BY MOUTH EVERY DAY FOR STOMACH ACID OR REFLUX active Not Available Not Available No t Available prednison e 20 mg tablet TAKE 1 TABLET BY MOUTH DAILY 04/21 completed Not Available Not Available Not Available prednison e 5 mg tablet TAKE 1 TABLET BY MOUTH DAILY IN THE MORNING 04/21 completed Not Available Not Available Not Available meclizine 12.5 mg tablet TAKE 1 TABLET BY MOUTH TWICE DAILY NEEDED 04/21 completed Not Available Not Available Not Available Macrobid 100 mg capsule take 1 capsule by oral route every 12 hours with food, as directed 05/08 completed Prescrib ed Elsewher e: No Locat ion: Jenny micaela [facility] odify By: shruthi baez DateTime : 04/28/20 16 01:45:00 PM Not Available Not Available Not Available nystatin- triamcino lone 100,000 unit/gram -0.1 % topical ointment active Not Available Not Available Not Available Zofran 8 mg tablet take 1 tablet by oral route every 8 hours 09/17 completed Prescrib ed Elsewher e: No Locat ion: Harrison hinojosa [facility] odify By: shruthi baez DateTime : 02/18/20 17 09:15:00 AM Not Available Not Available Not Available Metrogel Vaginal 0.75 % (37.5 mg/5 gram) insert 1 applicat orful by vaginal route for 5 nights at bedtime 10/19 completed Prescrib ed Elsewher e: No [facility] By: shruthi baez DateTime : 08/24/20 18 11:06:22 AM Not Available Not Available Not Available Depo-Prov era 150 mg/mL intramusc ular suspensio n inject 1 millilit er by intramus cular route every 3 months 04/28 completed Prescrib ed Elsewher e: No Locat ion: [facility] odify By: shruthi garcesuntmyranda DateTime : 10/03/20 15 01:00:00 PM Not Available Not Available Not Available flunisoli de 25 mcg (0.025 %) nasal spray USE 1 TO 2 SPRAYS IN EACH NOSTRIL TWICE DAILY 02/14 completed Not Available Not Available Not Available triamcino lone acetonide 0.1 % topical ointment APPLY THIN LAYER TOPICALL Y TO THE AFFECTED AREA TWICE DAILY active Not Available Not Available No t Available buspirone 10 mg tablet TAKE 1 TABLET BY MOUTH TWICE DAILY DIRECTED 02/14 completed Not Available Not Available Not Available mupirocin 2 % topical ointment APPLY TOPICALL Y TO THE AFFECTED AREA TWICE DAILY 02/14 completed Not Available Not Available Not Available gabapenti n 100 mg capsule TAKE ONE CAPSULE BY MOUTH EVERY NIGHT AT BEDTIME active Not Available Not Available No t Available azelastin e 137 mcg (0.1 %) nasal spray ADMINIST ER 1 SPRAY INTO EACH NOSTRIL EVERY 12 HOURS. 02/14 completed Not Available Not Available Not Available levofloxa kathy 750 mg tablet TAKE 1 TABLET BY MOUTH DAILY active Not Available Not Available No t Available methylpre dnisolone 4 mg tablets in a dose pack FOLLOW PACKAGE DIRECTIO NS active Not Available Not Available No t Available Vitamin D2 1,250 mcg (50,000 unit) capsule take 1 capsule by oral route every week 09/17 completed Prescrib ed Elsewher e: No Locat ion: [facility] odify By: shruthi baez DateTime : 11/12/19 10:13:05 AM Not Available Not Available Not Available fluticaso ne propionat e 50 mcg/actua tion nasal spray,[employer] SHAKE LIQUID AND USE 1 SPRAY IN EACH NOSTRIL TWICE DAILY active Not Available Not Available No t Available prednisol one 5 mg tablet TAKE 1 TABLET BY MOUTH DAILY IN THE MORNING 02/14 completed Not Available Not Available Not Available amoxicill in 875 mg-potass ium clavulana te 125 mg tablet TAKE 1 TABLET BY MOUTH TWICE DAILY 02/14 completed Not Available Not Available Not Available buspirone 15 mg tablet TAKE 1 TABLET BY MOUTH TWICE DAILY DIRECTED FOR ANXIETY active Not Available Not Available No t Available Acid Relocation Director (famotidi ne) 02/14 completed Not Available Not Available Not Available Vitals Date Recorded Body height Body mass index (BMI) Body weight Systolic And Diastolic Provider Name and Address Organization Details Last Updated DateTime 02/15/2024 162.56 cm 47.2 kg/m2 091792.9 g 130/80 mm[Hg] Tia Lockhart [facility] 02/15/2024 09:46:44 Date Recorded Systolic And Diastolic Provider Name and Address Organization Details Last Updated DateTime 04/21/2023 156/98 mm[Hg] MICHAEL Carson P [address], [place], [address], [facility] 04/21/2023 17:27:21 Date Recorded Body height Body mass index (BMI) Body weight Systolic And Diastolic Provider Name and Address Organization Details Last Updated DateTime 04/21/2023 162.56 cm 60.7 kg/m2 602764.54 g 163/104 mm[Hg] Lore Lee [facility] 04/21/2023 15:55:18 Date Recorded Body height Body mass index (BMI) Body weight Systolic And Diastolic Provider Name and Address Organization Details Last Updated DateTime 07/27/2023 162.56 cm 56 kg/m2 903100.11 g 146/85 mm[Hg] Valeria Guallpa [facility] 07/27/2023 09:49:26 Social History Question Answer Notes LastModified by Organizat ion Details LastModified Time Tobacco Smoking Status Never Smoker [facility] 07/27/2023 09:51:30 Are You Blind Or Do You Have Difficulty Seeing? No Information n ot available 04/21/2023 What Is Your Level Of Caffeine Consumption? None Information not available 02/15/2024 How Much Tobacco Do You Chew? None Information not available 04/21/2023 In The 14 Days Before Symptom Onset, Have You Had Close Contact With A Laboratory-confirm ed COVID-19 While That Case Was Ill? No Information n ot available 04/21/2023 In The 14 Days Before Symptom Onset, Have You Had Close Contact With A Person Who Is Under Investigation For COVID-19 While That Person Was Ill? No Information not available 04/21/2023 Have You Been To An Area Known To Be High Risk For COVID-19? No Information not available 04/21/2023 Are You Deaf Or Do You Have Serious Difficulty Hearing? No Information not available 04/21/2023 What Type Of Diet Are You Following? GLUTENFREE Information n ot available 02/15/2024 What Is The Highest Grade Or Level Of School You Have Completed Or The Highest Degree You Have Received? [id number] Information not available 04/21/2023 Are There Any Guns Present In Your Home? No Information not available 04/21/2023 Do You Use Protection During Sex? No Information not available 04/21/2023 Do You Use Your Seat Belt Or Car Seat Routinely? Yes Information not available 04/21/2023 Do You Have Smoke And Carbon Monoxide Detectors In Your Home? Yes Information not available 04/21/2023 How Much Tobacco Do You Smoke? No Information not available 04/21/2023 Do You Use Sunscreen Routinely? Yes Information not available 04/21/2023 Have You Used IV Drugs? No Information not available 04/21/2023 Do You Have Difficulty Walking Or Climbing Stairs? No [email or web address] Information not available 07/27/2023 Sex: Unknown Functional Status Question Answer Note LastModified by Organizat ion Details LastModified Time Do you use any illicit or recreational drugs? No Information not available 04/21/2023 What is your level of alcohol consumption? None Information not available 04/21/2023 Are you able to walk independently without assistance or assistive devices? YESWOREST Information not available 04/21/2023 Are you able to care for yourself independently? 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 No [email or web address] Information not available 07/27/2023 What is your exercise level? Occasional Information not available 04/21/2023 Mental Status Question Answer Note LastModified by Organization D etails LastModified Time Do you feel stressed (tense, restless, nervous, or anxious, or unable to sleep at night)? [id number] Information not available 02/15/2024 Family History Relationship Description Onset Age of this Age Resolved Age Notes LastModified by Organization Details LastModified Time Maternal Grandfather Asthma [email or web address] Not available 01/2020 16:13:06 Maternal Grandfather Hypertensive disorder [email or web address] Not available 07/12 16:13:16 Maternal Grandfather Disorder of thyroid gland [email or web address] Not available 07/12 16:13:23 Mother Malignant neoplasm of cervix uteri [email or web address] Not available 16:13:31 Mother Disorder of thyroid gland [email or web address] Not available 07/12 16:13:39 Paternal Grandfather Hypertensive disorder [email or web address] Not available 07/12 16:13:50 Medical History Condition Response Anxiety Disorder Y Allergies (Food, seasonal, environmental ) Y Depression/ depression Y Drug/Latex Allergies/Reactions Y Acid Reflux (GERD) Y Hypertension Y Gynecological History Statement/Question Response Abnormal Pap N Flow Moderate Date of LMP 01/25/2024 On BCP's at Conception? Y N Was last menstrual period normal Y STIs/STDs N HPV Vaccine Y Duration of Flow (days) 4 Current Control Method Partner Vas ectomy Age at First Child 20 Sexually Active? Y Menses Monthly Y Age of first menstrual cycle 12 Date of Last Pap Smear 08/04/2019 Sexual Problems? Y LMP Definite N Obstetrics History GPAL:G 3 P 0 0 0 3 Type Value Living 3 Total 3 Past Encounters Encounter ID Performer Location Encounter Start Date Encounter Closed Date Diagnosis/Indication Diagnosis SNOMED-CT Code Diagnosis ICD10 Code Diagnosis IMO Codes Diagnosis Note [id number] AUGIE Carson [place] [address] [address] 04/21/2023 15:36:33 04/21/2023 17:34:47 Pain in pelvis 40901642 R10.2 This patient is a 32 -year-old female with pelvic pain. We have agreed to complete the evaluation with pelvic ultrasound . The patient will return after the pelvic ultrasound to discuss those findings and to develop a treatment plan. A comprehens bogdan history and physical exam was performed today. We spent over 25 minutes face-to-fa ce. The patient was given precaution s. She will contact clinic if pelvic pain increases in frequency or intensity. Also notify clinic of any new symptoms associated with pelvic pain. She does not appear to have an acute pelvic infection today, but was asked to contact us Immediatel y with nausea, vomiting, fever, chills. UPT (-)urine cx sentgc/ct/ trich testing sentpelvic u/s orderedrec holley JETER consult given longevity of symptomspr ecautions discussed BP precaution s discussed. Recommend PCP f/u and logging BP at home. ED precaution s discussed. No current symptoms [id number] Mick Hawkins MD [place] [address] [address] 07/27/2023 09:37:25 07/27/2023 10:23:57 Blood leukocyte number above reference range [id number] D72.829 Gynecologi c examination [id number] Z01.419 Annual gynecologi blaien exam performed. Patient will come back in a year unless there are new symptoms. Suggest Calcium with Vitamin D if not eating in diet. Patient advised to get annual flu shot. Recommend yearly physicals and preform monthly breast exams. Genetic testing is available for patients with family history of cancer. Engage in safe sexual practices, use condoms. Encouraged to have daily exercise. Avoid tobacco and illicit drugs, moderation of alcohol. If BMI greater than 25 dietary consult advised. If you have any questions please call or email. Pap smear-toda y laboratory evaluation -done [id number] AUGIE Carson [place] [address] [address] 02/15/2024 09:35:45 02/15/2024 10:12:45 Urinary symptoms 538328289 R39.9 Vaginitis 98993700 N76.0 vaginitis panel sentdeclin ed STI screensusp ect yeast, rx sent - r/b/a reviewedvu lvar care guidelines discussed Time spent in visit is a total of 18 mins with at least 50% of visit consisting of counseling and review of plan of care. Health Concerns Section Related Observation LastModified by Organization Detai ls LastModified Time None Recorded Concern Status LastModified by Organization Details LastModified Time None Recorded Advance Directives Directive None Recorded Payers Insurance Date Sequence Insurance Name Policy Number Policy Cano Covered Member ID Cano Member ID Guarantor Name 02/15/2024 1 [facility] - DOS PRIOR TO 2025 (MEDICAID REPLACEMENT - HMO) [id number] Yanni Lopez [id number] Yanni Lopez 07/18/2024 1 [facility] - DOS ON OR AFTER 21 (MEDICAID REPLACEMENT - HMO) Yanni Lopez [id number] Yanni Lopez Notes Date Note Type Note Provider Name and Address Organization Details Recorded Time 04/21/20 23 text/htm l 32yo [id number] for evaluation of chronic pelvic painpresent for the past 4+ yearsIC is painful, will have cramping for 3-4 days afterwards. Bilateral cramping randomly throughout the month. Periods are painful, light to moderate flow. States periods are monthly.She had an exploratory lap done in 2019 - will obtain records in nexRe-APPx of fibroids - last u/s 1 year ago at outside officelast pap 2 years ago per patient - normalhas tried multiple different BC methods with no improvement (IUD, OCP, etc)neg vaginal d/c, odors, itchingneg n/v/fneg urinary symptomsnormal bowel movements AUGIE Carson [address], [place], [address], [facility] 04/21/2023 17:29:23 07/27/20 23 text/htm l Annual GYNReported by PatientHistoryFor history, patient reportsno gynecologic complaints(pelvic pain).Genitourinary symptomsFor menstrual cycle, patient reportsnormal menses. For urinary symptoms, patient reportsno hematuriaandno incontinence. For vulva, patient reportsno genital lesion. For vagina, patient reportsnormal vaginal discharge.Breast symptomsFor breast, patient reportsno breast painandno breast lump.ContraceptionFor current contraception, patient reportspartner had vasectomy.Endocrine symptomsFor sexual complaints, patient reportsno sexual complaints.Psychological symptomsFor psychological symptoms, patient reportsno depressionandno anxiety.Preventative measuresFor preventive measures, patient reportsencourage self breast examinationandencourage regular exercise. Mick Hawkins MD [address], [place], [address], [facility] 07/27/2023 10:20:03 02/15/20 24 text/htm l Vaginal/Vulvar ProblemReported by Patient 33yopresents for vaginal discharge/itching/burningsy mptoms present for 1 weeknoticed after taking antibiotics for recent sinus infectionclumpy discharge, itchingSA with steady male partner, vasectomy for BCneg odorsneg pelvic painneg n/v/f AUGIE [place] [address], [place], [address], [facility] 02/15/2024 10:03:21 OBGyn Episode Ob Episode Information Episode Created Date Number of Fetuses Patient Bloodtype Patient rh Status Prepregnancy Weight lbs Domestic Partner Domestic Partner Phone Father Name Sales Training Representative Status 04/21/20 23 1 CLOSED Fetus Data First Name Last Name Admitted to NICU Weight (g) Sex Living Outcome Pediatric Complications Fetus ID Race Codes Race Delivery Type 3628.73 6 M Full Term Vaginal Delivery Jose Elias Calculation Initial Jose Elias Date Initial Exam Date Initial Exam Provider Initial Ultrasound Date Last Menstrual Period Date Ultra Sound Weeks Gestation 0 Eighteen To Twenty Week Jose Elias Update Ultra Sound Date Fundal Height At Umbil Quickening Date Ultra Sound Latest Weeks Gestation Final Jose Elias Confirmed By Final Jose Elias Confirmed Date Final Jose Elias Date Ultra Sound Latest Days Gestation 0 0 Menstrual History Last Menstrual Date Menses Monthly On Bcp Conception Prior Menses Frequency Hcg Plus Date Menarche Onset Age Delivery Information Delivery Date Delivery Type Labor Anesthesia Weeks Gestation Incision Type Labor Labor Length Hrs Delivered By Post Complications Tubal Sterilization Discharge Date Comments 5 41 Discharge Information Feeding Method Contraceptive Method Maternal HG B and HCT Levels Ob Episode Information Episode Created Date Number of Fetuses Patient Bloodtype Patient rh Status Prepregnancy Weight lbs Domestic Partner Domestic Partner Phone Father Name Sales Training Representative Status 04/21/20 23 1 CLOSED Fetus Data First Name Last Name Admitted to NICU Weight (g) Sex Living Outcome Pediatric Complications Fetus ID Race Codes Race Delivery Type 3175.14 4 M Full Term Vaginal Delivery Jose Elias Calculation Initial Jose Elias Date Initial Exam Date Initial Exam Provider Initial Ultrasound Date Last Menstrual Period Date Ultra Sound Weeks Gestation 0 Eighteen To Twenty Week Jose Elias Update Ultra Sound Date Fundal Height At Umbil Quickening Date Ultra Sound Latest Weeks Gestation Final Jose Elias Confirmed By Final Jose Elias Confirmed Date Final Jose Elias Date Ultra Sound Latest Days Gestation 0 0 Menstrual History Last Menstrual Date Menses Monthly On Bcp Conception Prior Menses Frequency Hcg Plus Date Menarche Onset Age Delivery Information Delivery Date Delivery Type Labor Anesthesia Weeks Gestation Incision Type Labor Labor Length Hrs Delivered By Post Complications Tubal Sterilization Discharge Date Comments 1 41 Discharge Information Feeding Method Contraceptive Method Maternal HG B and HCT Levels Ob Episode Information Episode Created Date Number of Fetuses Patient Bloodtype Patient rh Status Prepregnancy Weight lbs Domestic Partner Domestic Partner Phone Father Name Sales Training Representative Status 04/21/20 23 1 CLOSED Fetus Data First Name Last Name Admitted to NICU Weight (g) Sex Living Outcome Pediatric Complications Fetus ID Race Codes Race Delivery Type 3061.74 6 F Full Term Vaginal Delivery Jose Elias Calculation Initial Jose Elias Date Initial Exam Date Initial Exam Provider Initial Ultrasound Date Last Menstrual Period Date Ultra Sound Weeks Gestation 0 Eighteen To Twenty Week Jose Elias Update Ultra Sound Date Fundal Height At Umbil Quickening Date Ultra Sound Latest Weeks Gestation Final Jose Elias Confirmed By Final Jose Elias Confirmed Date Final Jose Elias Date Ultra Sound Latest Days Gestation 0 0 Menstrual History Last Menstrual Date Menses Monthly On Bcp Conception Prior Menses Frequency Hcg Plus Date Menarche Onset Age Delivery Information Delivery Date Delivery Type Labor Anesthesia Weeks Gestation Incision Type Labor Labor Length Hrs Delivered By Post Complications Tubal Sterilization Discharge Date Comments 7 38.2 Discharge Information Feeding Method Contraceptive Method Maternal HG B and HCT Levels
--- OUTSIDE RECORDS SUMMARY | 2025-09-23 10:59 | XMS_ITS | Clinical Summary ---
Author Organization [facility] Address [address] [place] [address] Care Team Providers Care Railroad Dining Car Stewardess Name Role Phone Syeda Galdamez PA-C Primary Care Provider [phone] Source Comments [facility],non-owned Affiliates and Associated Physician Practices is amultiple site organization consisting of ambulatory clinics and hospital sitesin [place], [place], [place] and [place]. This disclosure is being madepursuant to the Care Everywhere program and may not contain all information available regarding this patient. Last updated 18.[facility] Allergies Active Allergy Reactions Criticality Noted Date Comments Contrast-Iodinated Agents For Ct/Other Anaphylaxis High 03/04/2024 Sulfa Antibiotics Rash Medium 06/14/2019 Medications * Be aware that medications may not be up to date on this document. Alwaysverify current medications with the patient. lisinopril (Prinivil; Zestril) 20 MG tablet Take 1 (one) tablet by mouth every morning 02/07/2024 Active busPIRone (Buspar) 15 MG tablet Take 1 (one) tablet by mouth 2 times daily 02/08/2024 Active famotidine (Pepcid) 40 MG tablet Take 1 (one) tablet by mouth every morning 02/17/2024 Active levoFLOXacin (Levaquin) 750 MG tablet Take 1 (one) tablet by mouth at bedtime 02/29/2024 Active gabapentin (Neurontin) 100 MG capsuleIndicati ons:Atypical facial pain,Migraine equivalent Take 1 (one) capsule by mouth at bedtime 30 capsule 4 03/04/2024 Active Active Problems Problem Noted Date Diagnosed Date test negative 12/20/2017 03/04/20 24 Overview (03/04/2024): Encounter for test, result negative;Recorded Elsewhere: No Location: [facility] Source: EHR Chronic: N Practice ID: [id number] Billable Time: 01:30:00 PM Single live 08/20/2017 03/04/2024 Overview (03/04/2024): Single live ;Practice ID: [id number] Insufficient weight gain of 08/11/2017 03/04/2024 Overview (03/04/2024): Low weight gain in , third trimester;Recorded Elsewhere: No Location: [facility] Source: EHR Chronic: N Practice ID: [id number] Billable Time: 11:30:00 AM 36 weeks gestation of 08/10/2017 03/04/2024 Overview (03/04/2024): 36 weeks gestation of ;Recorded Elsewhere: No Location: [facility] Source: EHR Chronic: N Practice ID: [id number] Billable Time: 09:49:00 AM 32 weeks gestation of 07/07/2017 03/04/2024 Overview (03/04/2024): 32 weeks gestation of ;Recorded Elsewhere: No Location: [facility] Source: EHR Chronic: N Practice ID: [id number] Billable Time: 11:30:00 AM 23 weeks gestation of 05/11/2017 03/04/2024 Overview (03/04/2024): 23 weeks gestation of ;Recorded Elsewhere: No Location: [facility] Source: EHR Chronic: N Practice ID: [id number] Billable Time: 01:30:00 PM Placenta previa 05/11/2017 03/04/2024 Overview (03/04/2024): Placenta previa specified as w/o hemor, second trimester;Recorded Elsewhere: No Location: [facility] Source: EHR Chronic: N Practice ID: [id number] Billable Time: 01:30:00 PM Secondary amenorrhea 12/25/2016 03/04/2024 Overview (03/04/2024): Amenorrhea;Recorded Elsewhere: No Location: [facility] Source: EHR Chronic: N Practice ID: [id number] Billable Time: 09:15:00 AM Secondary amenorrhea;Practice ID: [id number] Pelvic and perineal pain 05/08/2016 024 Overview (03/04/2024): Pelvic and perineal pain;Recorded Elsewhere: No Location: [facility] Source: EHR Chronic: N Practice ID: [id number] Billable Time: 03:45:00 PM Leukocytosis 04/28/2016 03/04/2024 Overview (03/04/2024): Elevated white blood cell count, unspecified;Recorded Elsewhere: No Location: [facility] Source: EHR Chronic: N Practice ID: [id number] Billable Time: 01:45:00 PM Family History Medical History Relation Name Comments Hypertension Father Relation Name Status Comments Father Alive Mother Alive Social History Tobacco Use Types Packs/Day Years Used Date Smoking Tobacco: Never Smokeless Tobacco: Never Tobacco Cessation:Counseling Given: Not Answered Alcohol Use Standard Drinks/Week Comments Not Currently 0 (1 standard drink = 0.6 oz pur e alcohol) Comments Unknown Sex and Gender Information Value Date Recorded Sex Assigned at Not on file 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 Gender Identity Not on file Sexual Orientation Not on file Last Filed Vital Signs Vital Sign Reading Time Taken Comments Blood Pressure 145/81 03/04/2024 9:41 AM CDT Pulse 116 03/04/2024 9:41 AM CDT Temperature - - Respiratory Rate - - Oxygen Saturation 98% 03/04/2024 9:41 AM CDT Inhaled Oxygen Concentration - - Weight 123.6 kg (272 lb 8 oz) 03/04/2024 9:41 AM CDT Height 162.6 cm (5' 4) 03/04/2024 9:41 AM CDT Body Mass Index 46.77 03/04/2024 9:41 AM CDT Plan of Treatment Health Maintenance Due Date Last Done Comments HIV SCREENING 2006 HEPATITIS C SCREENING 09/09/2009 DTAP/TDAP/TD VACCINES (1 - Tdap) 2010 HEPATITIS B VACCINE (1 of 3 - 19+ 3-dose series) 2010 PAP SMEAR 2012 HPV VACCINE (1 - 3-dose SCDM series) 2018 DEPRESSION SCREENING 11/09/2024 COVID-19 VACCINE (1 - 2023-2 5 season) 2025 INFLUENZA VACCINE (#1) 2025 ZOSTER VACCINE (1 of 2) 2041 HIB VACCINE Aged Out No longer eligi ble based on patient's age to complete this topic MENINGOCOCCAL (Group B) VACC INE SHARED DECISION-MAKING Aged Out No longer eligibl e based on patient's age to complete this topic MENINGOCOCCAL GROUPS A/C/Y/W VACCINE Aged Out No longer eligible b ased on patient's age to complete this topic PNEUMOCOCCAL VACCINE Aged Out No long er eligible based on patient's age to complete this topic Insurance [facility] Care Teams Railroad Dining Car Stewardess Relationship Specialty Start Date End Date Syeda Galdamez PA-C [address] [place] [phone] PCP - General 03/04/24
--- OUTSIDE RECORDS SUMMARY | 2025-09-23 10:59 | XMS_ITS | Clinical Summary ---
Author Organization [facility] Address [address] [place] [address] Phone Care Team Providers Care Neurology Epilepsy Physician Name Role Phone Provider, Unknown Primary Care Provider Unavaila ble Social History Tobacco Use Types Packs/Day Years Used Date Smoking Tobacco: Never Assessed Comments Unknown Sex and Gender Information Value Date Recorded Sex Assigned at Not on file Legal Sex Female 7:49 AM CDT Gender Identity Not on file Sexual Orientation Not on file Plan of Treatment Not on file Care Teams Neurology Epilepsy Physician Relationship Specialty Start Date End Date Provider, Unknown UNKNOWN PCP - General 02/19/17
--- OUTSIDE RECORDS SUMMARY | 2025-09-23 11:00 | XMS_ITS | Encounter Summary ---
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 [facility] [address] PCP - General FAMILY PRACTICE 06/03/20 documented as of this encounter
== END 2025-09-23 10:57 | disposition home or self-care (01) ==
PROVIDERS: PCP Physician Assistant; Visit Provider Otolaryngology
DX: J32.9 Chronic sinusitis, unspecified (principal); J34.2 Deviated nasal septum
CPT/HCPCS: 70486

== ENCOUNTER 2025-10-14 07:10 | Outpatient (CLI) | payer OTHER, SELFPAY ==
--- OUTSIDE RECORDS SUMMARY | 2025-10-14 07:14 | XMS_ITS | Data Portability ---
Author Organization [employer] [facility] , [facility] Address [address] [place] [address] Assessment No assessment recorded. Plan of Treatment Reminders Order Date Submit Date Provider Last Modified By Organization Details Last Modified Time Details Appointments None recorded. Lab test, urine 2022 023 [facility], [address] [place], [address], 3 07:52:10 bacterial vaginosis + vaginitis panel, vaginal 2021 022 [facility], [address] [place], [address], 2 15:52:35 Referral primary care provider referral - Establish care. 2021 022 randy Varela MD, [address] [facility], [place], [place], [address], 12:46:39 Procedures None recorded. Surgeries None recorded. Imaging US, breast, unilateral - LEFT [address] [facility], [address], [place] [address], [place], [address], 15:57:01 Medication Orders None recorded. Patient TargetsNo targets recorded. Patient Instructions Encounter Date Encounter Id Patient Instructions Last Modified By Organization Details Last Modified Time 04/08/2022 [id number] Patient Health Questionnaire-9* [email or web address] Not available 04/28/2022 12:47:35 weight managemen t education [email or web address] Not available 04/08/2022 19:38:23 Reason for Referral Primary Care Provider Referr al for Gynecologic examination Establish care. Referring Physician: Tracey Hsu, PREPAROLE COUNSELING AIDE, Encounter Date: 04/08/2022 Results Created Date Observation Date Name Description Value Unit Range Abnormal Flag Note LastModifiedBy Organization Detail LastModifiedTime 04/08/20 22 04/09/2022 VAGIN ITIS PLUS STD PANEL bacterial vaginosis BV POS negati ve abnormal Not Available [facility] [address] [place] [address], [id number], 04/09/2022 15:52:35 04/08/20 22 04/09/2022 VAGIN ITIS PLUS STD PANEL ivan species C. spp neg negati ve normal Not Available [facility] [address] [place] [address], [id number], 04/09/2022 15:52:35 04/08/20 22 04/09/2022 VAGIN ITIS PLUS STD PANEL ivan glabrata C. gla neg negati ve normal Not Available [facility] [address] [place] [address], [id number], 04/09/2022 15:52:35 04/08/20 22 04/09/2022 VAGIN ITIS PLUS STD PANEL trichomonas vaginalis CV/TV TRICH neg negati ve normal Not Available [facility] [address] [place] [address], [id number], 04/09/2022 15:52:35 04/08/20 22 04/09/2022 VAGIN ITIS PLUS STD PANEL chlamydia trachomatis CT neg negati ve normal If both Pap and Endoc ervic al swabs are colle cted, the Prese rvCyt Solut ion liqui d Pap speci men must be colle cted befor e the endoc ervic al swab speci men. Not Available [facility] [address] [place], [address], 04/09/2022 15:52:35 05/04/09/2022 VAGIN ITIS PLUS STD PANEL neisseria gonorrhoeae GC neg negati ve normal If both Pap and Endoc ervic al swabs are colle cted, the Prese rvCyt Solut ion liqui d Pap speci men must be colle cted befor e the endoc ervic al swab speci men. Not Available [facility] [address] [facility], [place], [address], 04/09/2022 15:52:35 03/05/20 23 03/05/2023 pregn charlene test, urine HCG negati ve Not Available [facility] [address] [facility], [place], [address], 03/04/2023 00:23:37 Result Notes None recorded. Problems Name Problem SNOMED Code Status Onset Date Resolution Date Notes Provider Name and Address Organization Details Recorded Time Sampling of vagina for Papanico laou smear Completed 201911/27/2020 Encounte r for gynecolo gical examinat ion (general ) (routine ) without abnormal findings ; Progress : Stable Added By: Tracey Hsu Add to Current Problems : NO ProblemS tatus: Resolve Not Available [facility] 2 21:40:34 Screenin g for malignan t neoplasm of cervix Completed 201911/27/2020 Encounte r for screenin g for malignan t neoplasm of cervix; Progress : Stable Added By: Tracey Hsu Add to Current Problems : NO ProblemS tatus: Resolve Not Available [facility] 2 21:40:35 Umbilica l hernia 396340442 Completed 201904/11/2021 Umbilica l hernia without obstruct ion or gangrene ; Progress : Stable Added By: Tracey Hsu Add to Current Problems : NO ProblemS tatus: Resolve Not Available [facility] 2 21:40:35 Pelvic and perineal pain 188704534 Completed 202004/11/2021 Pelvic and perineal pain; Progress : Stable Added By: Kym Paige Add to Current Problems : NO ProblemS tatus: Resolve Not Available [facility] 2 21:40:35 Pain of breast 27499266 Completed 202004/11/2021 Mastodyn ia; Progress : Stable Added By: Kym Paige Add to Current Problems : NO ProblemS tatus: Resolve Not Available [facility] 2 21:40:35 Acute vaginiti s 64629467 Completed 202004/11/2021 Acute vaginiti s; Progress : Stable Added By: Kym Paige Add to Current Problems : NO ProblemS tatus: Resolve Not Available [facility] 2 21:40:35 Removal of intraute rine device Completed 202006/13/2021 Encounte r for removal of intraute rine contrace ptive device; Progress : Stable Added By: Tracey Hsu Add to Current Problems : NO ProblemS tatus: Resolve Not Available [facility] 2 21:40:35 Abnormal uterine bleeding 16039146574 100 Completed 202004/08/2022 Other specifie d abnormal uterine and vaginal bleeding ; Progress : Stable Added By: Tracey Hsu Add to Current Problems : YES ProblemS tatus: Current Tracey Hsu CNM [address] [place], [address] , [facility] 2 21:50:18 Body mass index 40+ - severely obese 889301717 Active 2021 Tracey Hsu CNM [address] [place], [address] , [facility] 2 21:44:28 Chronic depressi on 190514632 Active 2021 PhQ score 13. Tracey Hsu CNM [address] [place], [address] , [facility] 2 21:53:27 Problem Notes None recorded. Procedures Surgical History Date Name Laterality Status Provider Name and Address Organization Details Recorded Time 2 Most Recent Mammogram completed Lisa Carroll [facility] 04/08/2022 17:47:58 1 Date of Last Pap Smear completed Tracey Hsu, CNM [address] [facility], [place], [address], [facility] 04/08/2022 18:08:55 hernia repair completed Tala Patriciasisizuleimajosh [facility] 03/10/2022 00:12:21 Imaging Results None recorded. Procedure Notes None recorded. Medical Equipment None Reported. Allergies Allergen ID Allergen Name Allergen Category Reaction Reaction Severity Criticality Documentation Date Start Date Code Code System Note Provider Name and Address Organization Details Recorded Time 262332 Substance with sulfonami de structure and antibacte rial mechanism of action (substanc e) medicatio n Not available Not available Not available 08/30/20212020 40801 8003 SNOMED Sever ity: Moder ate; Not Available [facility] 01:05:20 506905 Iodinated contrast media (substanc e) medicatio n Not available Not available Not available 04/08/2022 75013 2003 SNOMED Lisa Britsch [facility], [facility] 17:41:04 Medications Name Sig Start Date Stop Date Status Note LastModified by Organization Details LastModified Time Mirena 21 mcg/24 hr (up to 8 years) 52 mg intrauter ine device 05/16 completed Mirena 20 mcg/24 hours (5 yrs) 52 mg Intraute rine Intraute rine Device RxNorm: [id number] Allow Substitu tion: False Refill Denied: No Refill DateOccu rred: 07/05/20 20 Edited by: Gloria Avalos ) on 05/16/20 21 Stopped by: Gloria Avalos ) on 05/16/20 21 Not Available Not Available Not Available promethaz ine-DM 6.25 mg-15 mg/5 mL oral syrup TAKE 5 ML BY MOUTH EVERY 4 TO 6 HOURS NEEDED FOR COUGH 03/10 completed Not Available Not Available Not Available neomycin- polymyxin -hydrocor t 3.5 mg/mL-10, 000 unit/mL-1 % ear solution INSTILL 4 DROPS TO RIGHT EAR EVERY 8 HOURS 03/10 completed Not Available Not Available Not Available prednison e 10 mg tablet TAKE 1 TABLET BY MOUTH DAILY IN THE MORNING FOR 2 DAYS PRIOR TO SURGERY 03/05 completed Not Available Not Available Not Available doxycycli ne hyclate 100 mg capsule TAKE 1 CAPSULE BY MOUTH DAILY 03/05 completed Not Available Not Available Not Available clindamyc in HCl 300 mg capsule TAKE 1 CAPSULE BY MOUTH EVERY 8 HOURS UNTIL ALL TAKEN 03/10 completed Not Available Not Available Not Available fluconazo le 150 mg tablet TAKE ONE TABLET BY MOUTH AFTER COMPLETI ON OF ANTIBIOT ICS AND MAY REPEAT 72 HOURS LATER. 03/05 completed Not Available Not Available Not Available famotidin e 40 mg tablet TAKE 1 TABLET BY MOUTH EVERY DAY 03/05 completed Not Available Not Available Not Available prednison e 20 mg tablet TAKE 1 TABLET BY MOUTH DAILY 03/05 completed Not Available Not Available Not Available prednison e 5 mg tablet TAKE 1 TABLET BY MOUTH DAILY IN THE MORNING 03/05 completed Not Available Not Available Not Available meclizine 12.5 mg tablet TAKE 1 TABLET BY MOUTH TWICE DAILY NEEDED 03/05 completed Not Available Not Available Not Available metronida zole 500 mg tablet TAKE 1 TABLET BY MOUTH TWICE DAILY FOR 7 DAYS 03/05 completed Not Available Not Available Not Available ciproflox acin 250 mg tablet TAKE 1 TABLET BY MOUTH EVERY 12 HOURS 03/10 completed Not Available Not Available Not Available Metrogel Vaginal 0.75 % (37.5 mg/5 gram) insert 1 applicat orful (37.5 mg) by vaginal route once daily at bedtime 04/11 completed Metrogel VaginaL 0.75 % Vaginal Gel RxNorm: [id number] Allow Substitu tion: True Refill Denied: No Edited by: bob(Gloria Slade ) on 04/11/20 Stopped by: Gloria Avalos ) on 04/11/20 21 Not Available Not Available Not Available mupirocin 2 % topical ointment APPLY TOPICALL Y TO THE AFFECTED AREA TWICE DAILY 03/05 completed Not Available Not Available Not Available methylpre dnisolone 4 mg tablets in a dose pack FOLLOW PACKAGE DIRECTIO NS 03/10 completed Not Available Not Available Not Available Zoloft 25 mg tablet take 1 tablet (25 mg) by oral route once daily 06/13 completed Zoloft 25 mg oral tablet RxNorm: [id number] Allow Substitu tion: True Refill Denied: No Edited by: bob(Gloria Slade ) on 06/13/20 Stopped by: bob(Gloria Slade ) on 06/13/20 21 Not Available Not Available Not Available fluticaso ne propionat e 50 mcg/actua tion nasal spray,[employer] SHAKE LIQUID AND USE 2 SPRAYS IN EACH NOSTRIL TWICE DAILY 03/05 completed Not Available Not Available Not Available amoxicill in 875 mg-potass ium clavulana te 125 mg tablet TAKE 1 TABLET BY MOUTH TWICE DAILY 03/05 completed Not Available Not Available Not Available Vitamin D3 03/05 completed Not Available Not Available Not Available Vitamin B12 03/05 completed Not Available Not Available Not Available Vitals Date Recorded Body height Body mass index (BMI) Body weight Systolic And Diastolic Provider Name and Address Organization Details Last Updated DateTime 03/05/2023 162.56 cm 62 kg/m2 047359.8 5 g 140/88 mm[Hg] Radha Parham [place] [email or web address] 03/05/2023 11:07:00 Date Recorded Body height Body mass index (BMI) Body weight Body temperature Systolic And Diastolic Provider Name and Address Organization Details Last Updated DateTime 03/10/2022 162.56 cm 57.2 kg/m2 337982. 26 g 97 [degF] 138/78 mm[Hg] Suad Mullins [place] [email or web address] 17:39:35 Date Recorded Body height Body mass index (BMI) Body weight Body temperature Systolic And Diastolic Provider Name and Address Organization Details Last Updated DateTime 04/08/2022 162.56 cm 57.5 kg/m2 810946. 73 g 97.6 [degF] 126/82 mm[Hg] Lisa Carroll [facility] 17:40:31 Social History Question Answer Notes LastModified by Organizat ion Details LastModified Time Tobacco Smoking Status Never Smoker Lisa wood [facility] 04/08/2022 17:40:49 Are You Blind Or Do You Have Difficulty Seeing? No Information not available 04/08/2022 Are You Deaf Or Do You Have Serious Difficulty Hearing? No Information not available 04/08/2022 What Type Of Diet Are You Following? REGULAR Information not available 04/08/2022 How Many Children Do You Have? 2 [email or web address] Information not available 03/05/2023 What Is Your Relationship Status? Single Information not available 04/08/2022 Are You Sexually Active? Yes Information not available 04/08/2022 Sex: Unknown Functional Status Question Answer Note LastModified by Organizat ion Details LastModified Time Do you use any illicit or recreational drugs? No Information not available 04/08/2022 Do you or have you ever used any other forms of tobacco or nicotine? No Information not available 04/08/2022 What is your level of alcohol consumption? None Information not available 04/08/2022 Do you or have you ever used e-cigarettes or vape? Never used electronic cigarettes Information not available 04/08/2022 What is your exercise level? Occasional Information not available 04/08/2022 Mental Status None recorded. Family History Relationship Description Onset Age of this Age Resolved Age Notes LastModified by Organization Details LastModified Time Mother Disorder of coronary artery [email or web address] Not available 2021 16:50:28 Mother Malignant neoplasm of cervix uteri [email or web address] Not available 0 03/10/2022 00:12:55 Father Hypertensive disorder [email or web address] Not available 12/2021 00:12:45 Medical History Condition Response Other Cancer N High Blood Pressure N Colon Cancer N Cytomegalovirus N Hyperthyroidism N Blood Transfusion N MRSA N Herpes (HSV) N Breast Cancer N Lung Cancer N Depression N Hypothyroidism N Incontinence N Panic Attacks N Neurological Disorder N Deep Vein Thrombosis N Anxiety Disorder N Autoimmune disease N Arthritis N Shingles N Tuberculosis/Positive PPD N Polycystic Ovarian Syndrome N Cervical Cancer N Chlamydia N Hematuria N Stroke N Varicosities N Seasonal allergies N Crohn's Disease N Alzheimer's/Dementia N COPD/Emphysema N Endometriosis N HPV/Genital Warts N IBS (Irritable Bowel Syndrome) N History of Abnormal Pap N High Cholesterol N Liver Disease N Kidney Infection N Fibromyalgia N Ulcer N Kidney Disease N HIV N Gallbladder disease N Von Willebrand disease N Sickle Cell Disease/Trait N ADD/ADHD N Eating Disorder N Diabetes Mellitus (non-insulin dependent ) N Anemia N Ovarian Problems N Multiple Sclerosis N Gonorrhea N Frequent Urinary Tract infections N Osteopenia N Headaches/migraines N GERD (reflux) N Ovarian Cancer N Diabetes (insulin dependent) N Seizures/Epilepsy N Fibroids N Asthma N Heart Attack N Endometrial Cancer N Lupus N Rubella N Blood Clotting Disorder N Bipolar Disorder N Diabetes Mellitus (during ) N Ulcerative Colitis N Hepatitis N Heart Disease N Pulmonary Embolism N RPR N Chicken Pox N Osteoporosis N Gynecological History Statement/Question Response Flow Moderate Frequency of Cycle (Q days) 27-29 Date of LMP 02/06/2023 HPV Vaccine N Date of Last Pap Smear 06/28/2021 Duration of Flow (days) 3-5 Most Recent Mammogram 04/01/2022 Current Control Method Partner Vas ectomy Age at Menarche 13 Obstetrics History GPAL:G 3 P 3 0 0 3 Type Value Full Term 3 Living 3 Total 3 Past Encounters Encounter ID Performer Location Encounter Start Date Encounter Closed Date Diagnosis/Indication Diagnosis SNOMED-CT Code Diagnosis ICD10 Code Diagnosis IMO Codes Diagnosis Note [id number] GERRY LILLY CNM [facility] [address] [place] [address] 03/10/2022 16:53:27 03/10/2022 17:52:02 Tenderness of breast 66519629 N64.4 left breast tender and vericositi es noted on exam. Denies redness, swelling or nodule. Slight discolorat ion noted. US at [facility] for further eval. Pt declines annual today, prefers Tracey for exam. Plan to reschedule on Marions schedule next week. [id number] Tracey Hsu CNM [facility] [address] [place] [address] 04/08/2022 16:50:27 04/08/2022 22:00:07 Gynecologic examination 29051268 Z01.419 31 y.o. here for annual exam. - Pap up to date from 06/28/2021; co-testing in 2 years ASCCP guidelines for management - discussed natural course of HPV infection, ASCCP guidelines .- Contracept ion: vasectomy in partner.- Referral sent for PCP care initiation .- Mammo at age 41, no increased risk- Depression screen NEG- BMI counseling , diet and exercise reviewed- RTO for annual or PRN Depression screening 171 107579 Z13.31 Phq score 13. pt declines initiation of anti-depre ssant medication - denies suicidal ideation. Does not want to see counselor bc thinks insurance will not cover it. Venereal d isease screening 951446534 Z11.3 [id number] Tracey Hsu CNM [facility] h [address] [place] [address] 03/05/2023 10:46:50 03/06/2023 10:20:43 Missed period 82571612 N92.5 Pt frequently misses periods and has prolonged intervals between when she gets them. Will do labs and evaluate endometria l lining w/US d/t high risk based on BMI. Highly recommende d weight loss. Has appointmen t w/PCP coming up next week. and will discussed weight loss option at that time. PA for US sent. Health Concerns Section Related Observation LastModified by Organization Detai ls LastModified Time None Recorded Concern Status LastModified by Organization Details LastModified Time None Recorded Advance Directives Directive None Recorded Payers Insurance Date Sequence Insurance Name Policy Number Policy Cano Covered Member ID Cano Member ID Guarantor Name 12/19/2023 1 [facility] - DOS ON OR AFTER 21 (MEDICAID REPLACEMENT - HMO) Yanni Marroquin [id number] Yanni Marroquin Notes Date Note Type Note Provider Name and Address Organization Details Recorded Time 2 text/html Breast ProblemReported by PatientHPIFor reason for visit, patient reportsbreast pain. For location, patient reportsleftandupper inner quadrant. For quality, patient reportsasymptomatic,no bloody discharge,no brown discharge,no milky discharge,no yellow-clear discharge,no yellow-green discharge,non-tender,impr oving, andno mass. For context, patient reportsprior mammogram normal,performs breast self-examination,no breast implants,no family history of breast cancer,no history of breast cancer,no radiation treatment,no chemotherapy,no cancer,no previous biopsies,no miscarriages,recent mri normal, andlymph node status negative. For modifying factors, patient reportsno recent change in exercise habits,no recent changes in weight,no recent changes in diet, andno recent changes in medication dosage of hormone replacement therapy. For aggravating factors, patient reportsnone. GERRY LILLY CNM [address] [facility], [place], [address], [facility] 03/10/2022 17:51:56 2 text/html Annual GYNReported by PatientGenitourinary symptomsFor menstrual cycle, patient reportsnormal menses. For urinary symptoms, patient reportsno hematuriaandno incontinence. For vulva, patient reportsno genital lesion. For vagina, patient reportsnormal vaginal discharge.Breast symptomsFor breast, patient reportsno breast pain,no breast lump, andno nipple discharge.Endocrine symptomsFor sexual complaints, patient reportsno sexual complaints,no pain during intercourse, andnormal libido. For menopausal symptoms, patient reportsno menopausal symptomsandnormal vaginal lubrication.Psychological symptomsFor psychological symptoms, patient reportsno depression,no anxiety, andno pmdd. Tracey Hsu CNM [address] [place], [address], [facility] 04/08/2022 21:55:07 3 text/html Menstrual IrregularityReported by PatientContextFor premenopause, patient reportsno contraception use and sexually active.Symptoms:For associated symptoms, patient reportsobesitybut reportsno fatigue. For prior evaluation, patient reportspelvic ultrasound on: (03/25),negative test, andother labs/procedures done:. Patient's periods have been irregular and her test are negative, Tracey Hsu CNM [address] [place], [address], [email or web address] 03/06/2023 10:01:35 OBGyn Episode Ob Episode Information Episode Created Date Number of Fetuses Patient Bloodtype Patient rh Status Prepregnancy Weight lbs Domestic Partner Domestic Partner Phone Father Name Shipping/Receiving Clerk Status 03/05/20 23 1 CLOSED Fetus Data First Name Last Name Admitted to NICU Weight (g) Sex Living Outcome Pediatric Complications Fetus ID Race Codes Race Delivery Type 3628.73 6 M Full Term [id number] Jose Elias Calculation Initial Jose Elias Date [...] Complications Tubal Sterilization Discharge Date Comments 5 [facility] idural Discharge Information Feeding Method Contraceptive Method Maternal HG B and HCT Levels Ob Episode Information Episode Created Date Number of Fetuses Patient Bloodtype Patient rh Status Prepregnancy Weight lbs Domestic Partner Domestic Partner Phone Father Name Shipping/Receiving Clerk Status 03/05/20 23 1 CLOSED Fetus Data First Name Last Name Admitted to NICU Weight (g) Sex Living Outcome Pediatric Complications Fetus ID Race Codes Race Delivery Type 3175.14 4 M Full Term [id number] Jose Elias Calculation Initial Jose Elias Date [...] Complications Tubal Sterilization Discharge Date Comments 1 [facility] Discharge Information Feeding Method Contraceptive Method Maternal HG B and HCT Levels Ob Episode Information Episode Created Date Number of Fetuses Patient Bloodtype Patient rh Status Prepregnancy Weight lbs Domestic Partner Domestic Partner Phone Father Name Shipping/Receiving Clerk Status 03/05/20 23 1 CLOSED Fetus Data First Name Last Name Admitted to NICU Weight (g) Sex Living Outcome Pediatric Complications Fetus ID Race Codes Race Delivery Type 3033.16 9704 F Full Term [id number] Jose Elias Calculation Initial Jose Elias Date [...] Complications Tubal Sterilization Discharge Date Comments 7 [facility] Discharge Information Feeding Method Contraceptive Method Maternal HG B and HCT Levels
--- OUTSIDE RECORDS SUMMARY | 2025-10-14 07:14 | XMS_ITS | Clinical Summary ---
Author Organization [facility] Address [address] [place] [address] Phone Care Team Providers Care Social Sciences Lecturer Name Role Phone Provider, Unknown Primary Care Provider Unavaila ble Social History Tobacco Use Types Packs/Day Years Used Date Smoking Tobacco: Never Assessed Comments Unknown Sex and Gender Information Value Date Recorded Sex Assigned at Not on file Legal Sex Female 7:49 AM CDT Gender Identity Not on file Sexual Orientation Not on file Plan of Treatment Not on file Care Teams Social Sciences Lecturer Relationship Specialty Start Date End Date Provider, Unknown UNKNOWN PCP - General 02/19/17
--- OUTSIDE RECORDS SUMMARY | 2025-10-14 07:14 | XMS_ITS | Data Portability ---
Author Organization [facility] [place] Address [address] [place] [address] [place] [address] Care Team Providers Care Cabbage Salter Name Role Phone GLADIS WILD Primary Care [...] Lab urinalys is, dipstick 2023 024 SHERMAN [place], [address], [address], [place], [address], 4 10:52:21 urinalys is, dipstick 2022 023 ricarda [place], [address], [address], [place], [address], 3 16:50:44 pregnanc y test, urine 2022 023 sharonda [place], [address], [place], [address], 3 17:29:19 Referral None recorded . Procedures None recorded . Surgeries None recorded . Imaging US, pelvis, complete 2022 023 vschroedter [place], [address], [address], [place], [address], 3 16:28:18 Medication Orders fluconaz ole 150 mg tablet 2023 024 [id number], [address] [place], [place], [id number], 4 09:55:32 nystatin -triamci nolone 100,000 unit/gra m-0.1 % topical ointment 2023 024 [facility] #[id number], [address], [place], [id number], 4 09:55:26 Patient TargetsNo targets recorded. Patient InstructionsNo instructions recorded. Reason for Referral None Reported. Results Created Date Observation Date Name Description Value Unit Range Abnormal Flag Note LastModifiedBy Organization Detail LastModifiedTime 04/21/2004/21/2023 CT/GC AND TRICH OMONA S VAGIN LEIGH (RRNA ), SWAB chlamydia trachomatis, PCR Negati ve negati ve Not Available [facility] (Lab) [address], [place], [address], 04/22/2023 14:04:38 04/21/20 23 04/21/2023 CT/GC AND TRICH OMONA S VAGIN LEIGH (RRNA ), SWAB neisseria gonorrhoeae, PCR Negati ve negati ve Not Available [facility] (Lab) [address], [place], [address], 04/22/2023 14:04:38 04/21/20 23 04/21/2023 CT/GC AND TRICH OMONA S VAGIN LEIGH (RRNA ), SWAB trichomonas vaginalis ribosomal RNA (rrna) Negati ve negati ve Not Available [facility] (Lab) [address], [place], [address], 04/22/2023 14:04:38 04/21/20 23 04/21/2023 pregn charlene test, urine HCG negati ve Not Available [place] [address], [place], [address], 04/21/2023 17:29:08 04/21/20 23 04/21/2023 urina lysis , dipst ick Leukocytes neg Not Available [facility] sameer [address], [place], [address], 04/21/2023 16:46:03 04/21/20 23 04/21/2023 urina lysis , dipst ick Nitrite neg Not Available [place] [address], [place], [address], 04/21/2023 16:46:03 04/21/20 23 04/21/2023 urina lysis , dipst ick Urobilinogen neg Not Available [facility] nadiya [address], [place], [address], 04/21/2023 16:46:03 04/21/20 23 04/21/2023 urina lysis , dipst ick Protein neg Not Available [place] [address], [place], [address], 04/21/2023 16:46:03 04/21/20 23 04/21/2023 urina lysis , dipst ick pH 5 Not Available [place] [address], [place], [address], 04/21/2023 16:46:03 04/21/20 23 04/21/2023 urina lysis , dipst ick Specific [place] 1.[address] [address], [place], [address], 04/21/2023 16:46:03 04/21/20 23 04/21/2023 urina lysis , dipst ick Ketone neg Not Available [place] [address], [place], [address], 04/21/2023 16:46:03 04/21/20 23 04/21/2023 urina lysis , dipst ick Bilirubin neg Not Available [facility] [address], [place], [address], 04/21/2023 16:46:03 04/21/20 23 04/21/2023 urina lysis , dipst ick Glucose neg Not Available [place] [address], [place], [address], 04/21/2023 16:46:03 04/21/20 23 04/21/2023 urina lysis , dipst ick Appearance clear Not Available [facility] [address], [place], [address], 04/21/2023 16:46:03 04/21/20 23 04/21/2023 urina lysis , dipst ick Color yellow Not Available [place] [address], [place], [address], 04/21/2023 16:46:03 07/27/20 23 07/27/2023 IMAGE GUIDE [...] blaine and/o r histo rical findi ngs, [facility] myranda monty edmund ion is recom robert d, as bautistai josé leonard nted. Not Available [facility] (Lab) [address], [place], [address], 07/28/2023 18:57:21 02/15/20 24 02/15/2024 VAGIN ITIS/ VAGIN OSIS, DNA PROBE ivan sp. detection, direct probe Negati ve negati ve Not Available [facility] (Lab) [address], [place], [address], 02/16/2024 14:11:27 02/15/20 24 02/15/2024 VAGIN ITIS/ VAGIN OSIS, DNA PROBE gardnerella vag. detection, direct probe Negati ve negati ve Not Available [facility] (Lab) [address], [place], [address], 02/16/2024 14:11:27 02/15/20 24 02/15/2024 VAGIN ITIS/ VAGIN OSIS, DNA PROBE trichomonas vag. detection, direct probe Negati ve negati ve Not Available [facility] (Lab) [address], [place], [address], 02/16/2024 14:11:27 Result Notes None recorded. Problems Name Problem SNOMED Code Status Onset Date Resolution Date Notes Provider Name and Address Organization Details Recorded Time SNOMED CT Concept Active 2014 Encntr for general adult medical exam w/o abnormal findings; Recorded Elsewhere : No Locati on: [facility] So urce: EHR Chron ic: N Practic e ID: 0001 Bill able Time: 01:00:00 PM Not Available [facility] 0 18:47:[address] Concept Active 2014 Well woman check w/ abnormal finding;R ecorded Elsewhere : No Locati on: [facility] So urce: EHR Chron ic: N Practic e ID: 0001 Bill able Time: 01:00:00 PM Not Available [facility] 0 18:47:48 Blood leukocyte number above reference range 942093459 Active 2015 Elevated white blood cell count, unspecifi ed;Record ed Elsewhere : No Locati on: [facility] So urce: EHR Chron ic: N Practic e ID: 0001 Bill able Time: 01:45:00 PM Not Available [facility] 0 18:47:47 Pelvic and perineal pain 296184602 Active 2015 Pelvic and perineal pain;Amador rded Elsewhere : No Locati on: [facility] So urce: EHR Chron ic: N Practic e ID: 0001 Bill able Time: 03:45:00 PM Not Available [facility] 0 18:47:46 Disorder of intrauter ine contracep tive device Active 2015 [facility] compl of intrauter ine contracep tive device, init encntr;Re corded Elsewhere : No Locati on: [facility] So urce: EHR Chron ic: N Practic e ID: 0001 Bill able Time: 03:30:00 PM Not Available [facility] 0 18:47:48 Removal of intrauter ine device Active 2015 Encounter for removal of intrauter ine contracep tive device;Re corded Elsewhere : No Locati on: [facility] So urce: EHR Chron ic: N Practic e ID: 0001 Bill able Time: 01:45:00 PM Not Available [facility] 0 18:47:50 Amenorrhe a 97341099 Active 2016 Amenorrhe a;Recorde d Elsewhere : No Locati on: [facility] So urce: EHR Chron ic: N Practic e ID: 0001 Bill able Time: 09:15:00 AM Not Available [facility] 0 18:47:48 detection examinati on Active 2016 Encounter for test, result positive; Recorded Elsewhere : No Locati on: [facility] So urce: EHR Chron ic: N Practic e ID: 0001 Bill able Time: 09:15:00 AM Not Available [facility] 0 18:47:48 Secondary amenorrhe a 295274456 Active 2016 Secondary amenorrhe a;Practic e ID: 0001 Not Available [facility] 0 18:47:54 Uterine size for dates discrepan cy Active 2016 Uterine size-date discrepan cy, first trimester ;Recorded Elsewhere : No Locati on: [facility] So urce: EHR Chron ic: N Practic e ID: 0001 Bill able Time: 08:30:00 AM Not Available [facility] 0 18:47:47 Gestation period, 23 weeks 50166508 Active 2016 23 weeks gestation of ;Recorded Elsewhere : No Locati on: [facility] So urce: EHR Chron ic: N Practic e ID: 0001 Bill able Time: 01:30:00 PM Not Available [facility] 0 18:47:49 Placenta previa 89388761 Active 2016 Placenta previa specified as w/o hemor, second trimester ;Recorded Elsewhere : No Locati on: [facility] So urce: EHR Chron ic: N Practic e ID: 0001 Bill able Time: 01:30:00 PM Not Available [facility] 0 18:47:51 Normal in multigrav urbi 94774629671 4106 Active 2016 Encounter for suprvsn of normal , third trimester ;Recorded Elsewhere : No Locati on: [facility] So urce: EHR Chron ic: N Practic e ID: 0001 Bill able Time: 09:30:00 AM Not Available [facility] 0 18:47:46 Uterine size for dates discrepan cy Active 2016 Uterine size-date discrepan cy, third trimester ;Recorded Elsewhere : No Locati on: [facility] So urce: EHR Chron ic: N Practic e ID: 0001 Bill able Time: 11:30:00 AM Not Available [facility] 0 18:47:46 Gestation period, 32 weeks 8427571 Active 2016 32 weeks gestation of ;Recorded Elsewhere : No Locati on: [facility] So urce: EHR Chron ic: N Practic e ID: 0001 Bill able Time: 11:30:00 AM Not Available [facility] 0 18:47:[address] Concept Active 2016 Decreased movements , third trimester , unsp;Amador rded Elsewhere : No Locati on: [facility] So urce: EHR Chron ic: N Practic e ID: 0001 Bill able Time: 09:49:00 AM Not Available [facility] 0 18:47:46 Gestation period, 36 weeks 16701680 Active 2016 36 weeks gestation of ;Recorded Elsewhere : No Locati on: [facility] So urce: EHR Chron ic: N Practic e ID: 0001 Bill able Time: 09:49:00 AM Not Available [facility] 0 18:47:49 Insuffici ent weight gain of 35992055 Active 2016 Low weight gain in , third trimester ;Recorded Elsewhere : No Locati on: [facility] So urce: EHR Chron ic: N Practic e ID: 0001 Bill able Time: 11:30:00 AM Not Available [facility] 0 18:47:48 Gestation period, 37 weeks 73400382 Active 2016 37 weeks gestation of ;Recorded Elsewhere : No Locati on: [facility] So urce: EHR Chron ic: N Practic e ID: 0001 Bill able Time: 11:30:00 AM Not Available [facility] 0 18:47:50 Premature rupture of membranes 60315825 Active 2016 Full-term sadia ROM, unsp time betw rupture and onset labor;Pra ctice ID: 0001 Not Available [facility] 0 18:47:53 Single live from cage 831027529 Active 2016 Single live ;Pra ctice ID: 0001 Not Available [facility] 0 18:47:53 Gestation period, 38 weeks 16580258 Active 2016 38 weeks gestation of ;Practice ID: 0001 Not Available [facility] 0 18:47:56 Lochia finding Active 2016 Encounter for routine postpartu m follow-up ;Recorded Elsewhere : No Locati on: [facility] So urce: EHR Chron ic: N Practic e ID: 0001 Bill able Time: 09:45:00 AM Not Available [facility] 0 18:47:47 test negative 936350980 Active 2017 Encounter for test, result negative; Recorded Elsewhere : No Locati on: [facility] So urce: EHR Chron ic: N Practic e ID: 0001 Bill able Time: 01:30:00 PM Not Available [facility] 0 18:47:46 Insertion of intrauter ine contracep tive device Active 2017 Encounter for insertion of intrauter ine contracep tive device;Re corded Elsewhere : No Locati on: [facility] So urce: EHR Chron ic: N Practic e ID: 0001 Bill able Time: 01:30:00 PM Not Available [facility] 0 18:47:48 Contracep tive sheath status 192292454 Active 2017 Encounter for routine checking of intrauter ine contracep dev;Pract ice ID: 0001 Not Available [facility] 0 18:47:[address] Concept Active 2017 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) w/o abn findings; Recorded Elsewhere : No Locati on: [facility] So urce: EHR Chron ic: N Practic e ID: 0001 Bill able Time: 08:30:00 AM Not Available [facility] 0 18:47:47 Sexual function painful Active 2017 Dyspareun ia;Record ed Elsewhere : No Locati on: [facility] So urce: EHR Chron ic: N Practic e ID: 0001 Bill able Time: 11:15:00 AM Not Available [facility] 0 18:47:47 Procedure on genitouri nary system Active 2018 Encounter for surgical aftercare following surgery on the genitouri nary system;Re corded Elsewhere : No Locati on: [facility] So urce: EHR Chron ic: N Practic e ID: 0001 Bill able Time: 10:00:00 AM Not Available [facility] 0 18:47:46 Postopera tive care Active 2018 Encounter for surgical aftercare following surgery on the genitouri nary system;Re corded Elsewhere : No Locati on: [facility] So urce: EHR Chron ic: N Practic e ID: 0001 Bill able Time: 10:00:00 AM Not Available [facility] 0 18:47:46 Notes:Encounter for antenata l screening of mother Recorded Elsewhere: No Location: [facility] Source: EHR Chronic: N Practice ID: 0001 Billable Time: 01:30:00 PM Encounter for screening of mother Practice ID: 0001 Encounter for screening of mother Recorded Elsewhere: No Location: [facility] Source: EHR Chronic: N Practice ID: 0001 Billable Time: 08:15:00 AM Encounter for screening of mother Practice ID: 0001 Encounter for screening of mother Recorded Elsewhere: No Location: [facility] Source: EHR Chronic: N Practice ID: 0001 Billable Time: 08:45:00 AM Encounter for screening of mother Practice ID: 0001 Problem Notes None recorded. Procedures Surgical History Date Name Laterality Status Provider Name and Address Organization Details Recorded Time 08/04/20 19 Date of Last Pap Smear completed Tia Lockhart [facility] 02/15/2024 09:46:58 11/23/19 19 diagnostic laparoscopy completed Shobha Hurst [facility] 07/12/2020 16:15:05 [facility] 04/21/2023 15:55:34 Other completed [facility] 04/21/2023 15:55:34 tonsilectomy/ad enoids completed [facility] 04/21/2023 15:55:34 Imaging Results None recorded. Procedure Notes None recorded. Medical Equipment None Reported. Allergies Allergen ID Allergen Name Allergen Category Reaction Reaction Severity Criticality Documentation Date Start Date Code Code System Note Provider Name and Address Organization Details Recorded Time 08906 Substance with sulfonami de structure and antibacte rial mechanism of action (substanc e) medicatio n hives moderate Not available 10/26/2020 75834 8003 SNOMED Lore wood [facility] 3 15:55:21 36684 Iodinated contrast media (substanc e) medicatio n anaphylax is severe Not available 04/21/2023 77753 2003 SNOMED Lore Shari wood [place] - [facility] 3 15:55:21 Medications Name Sig Start Date Stop Date Status Note LastModified by Organization Details LastModified Time cyclobenz aprine 10 mg tablet take 1 tablet by oral route 2 times every day 09/17 completed Prescrib ed Elsewher e: No Locat ion: [facility] odify By: shruthi baez DateTime : 03/17/20 17 09:30:00 AM Not Available Not Available Not Available Mirena 21 mcg/24 hr (up to 8 years) 52 mg intrauter ine device 04/21 completed Prescrib ed Elsewher e: Yes Loca tion: [facility] odify By: lyudmila mora DateTime : 12/21/19 [...] Elsewher e: No Locat ion: Jenny micaela [facility] odify By: shruthi baez DateTime : 04/28/20 16 01:45:00 PM Not Available Not Available Not Available nystatin- triamcino lone 100,000 unit/gram -0.1 % topical ointment active Not Available Not Available Not Available Zofran 8 mg tablet take 1 tablet by oral route every 8 hours 09/17 completed Prescrib ed Elsewher e: No Locat ion: [facility] hinojosa [facility] odify By: shruthi baez DateTime : 02/18/20 17 09:15:00 AM Not Available Not Available Not Available Metrogel Vaginal 0.75 % (37.5 mg/5 gram) insert 1 applicat orful by vaginal route for 5 nights at bedtime 10/19 completed Prescrib ed Elsewher e: No [facility] By: shruthi baez DateTime : 08/24/20 18 11:06:22 AM Not Available Not Available Not Available Depo-Prov era 150 mg/mL intramusc ular suspensio n inject 1 millilit er by intramus cular route every 3 months 04/28 completed Prescrib ed Elsewher e: No [facility] By: shruthi garcesuntmyranda DateTime : 10/03/20 [...] Prescrib ed Elsewher e: No Locat ion: [facility] odify By: shruthi baez DateTime : 11/12/19 [...] Available Not Available No t Available Acid Visitor Service Assistant (famotidi ne) 02/14 completed Not Available Not Available Not Available Vitals Date Recorded Body height Body mass index (BMI) Body weight Systolic And Diastolic Provider Name and Address Organization Details Last Updated DateTime 02/15/2024 162.56 cm 47.2 kg/m2 001421.9 g 130/80 mm[Hg] Tia Lockhart [facility] 02/15/2024 09:46:44 Date Recorded Systolic And Diastolic Provider Name and Address Organization Details Last Updated DateTime 04/21/2023 156/98 mm[Hg] MICHAEL Carson P [address], [place], [address], [facility] 04/21/2023 17:27:21 Date Recorded Body height Body mass index (BMI) Body weight Systolic And Diastolic Provider Name and Address Organization Details Last Updated DateTime 04/21/2023 162.56 cm 60.7 kg/m2 888369.54 g 163/104 mm[Hg] Lore Lee [facility] 04/21/2023 15:55:18 Date Recorded Body height Body mass index (BMI) Body weight Systolic And Diastolic Provider Name and Address Organization Details Last Updated DateTime 07/27/2023 162.56 cm 56 kg/m2 421793.11 g 146/85 mm[Hg] Valeria Guallpa [facility] 07/27/2023 09:49:26 Social History Question Answer Notes LastModified by Organizat ion Details LastModified Time Tobacco Smoking Status Never [facility]oker [facility] 07/27/2023 09:51:30 Are You Blind [...] Or The Highest Degree You Have Received? [id number] Information not available 04/21/2023 Are There Any [...] Have Difficulty Walking Or Climbing Stairs? No [email or web address] Information not available 07/27/2023 Sex: Unknown Functional [...] able to care for yourself independently? 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 No [email or web address] Information not available 07/27/2023 What is your exercise level? Occasional Information not available 04/21/2023 Mental Status Question Answer Note LastModified by Organization D etails LastModified Time Do you feel stressed (tense, restless, nervous, or anxious, or unable to sleep at night)? [id number] Information not available 02/15/2024 Family History Relationship Description Onset Age of this Age Resolved Age Notes LastModified by Organization Details LastModified Time Maternal Grandfather Asthma [email or web address] Not available 01/2020 16:13:06 Maternal Grandfather Hypertensive disorder [email or web address] Not available 07/12 16:13:16 Maternal Grandfather Disorder of thyroid gland [email or web address] Not available 07/12 16:13:23 Mother Malignant neoplasm of cervix uteri [email or web address] Not available 16:13:31 Mother Disorder of thyroid gland [email or web address] Not available 07/12 16:13:39 Paternal Grandfather Hypertensive disorder [email or web address] Not available 07/12 16:13:50 Medical History Condition Response Allergies (Food, seasonal, environmental ) Y Anxiety Disorder Y Acid Reflux (GERD) Y Hypertension Y Depression/ depression Y Drug/Latex Allergies/Reactions Y Gynecological History Statement/Question Response Abnormal Pap [...] ICD10 Code Diagnosis IMO Codes Diagnosis Note [id number] AUGIE Carson [place] [address] [address] 04/21/2023 15:36:33 04/21/2023 17:34:47 Pain in pelvis 29457633 R10.2 This patient is a 32 -year-old [...] ED precaution s discussed. No current symptoms [id number] Mick Hawkins MD [place] [address] [address] 07/27/2023 09:37:25 07/27/2023 10:23:57 Blood leukocyte number above reference range 092450647 D72.829 Gynecologi c examination 11880167 Z01.419 Annual gynecologi blaine exam performed. Patient will come back in [...] email. Pap smear-toda y laboratory evaluation -done [id number] AUGIE Carson [place] [address] [address] 02/15/2024 09:35:45 02/15/2024 10:12:45 Urinary symptoms 909345064 R39.9 Vaginitis 25807698 N76.0 vaginitis panel sentdeclin ed STI screensusp [...] Cano Member ID Guarantor Name 02/15/2024 1 [facility] - DOS PRIOR TO 2025 (MEDICAID REPLACEMENT - HMO) [id number] Yanni Lopez [id number] Yanni Lopez 07/18/2024 1 [facility] - DOS ON OR AFTER 21 (MEDICAID REPLACEMENT - HMO) Yanni Lopez [id number] Yanni Lopez Notes Date Note Type Note Provider Name and Address Organization Details Recorded Time 04/21/20 23 text/htm l 32yo [id number] for evaluation of chronic pelvic painpresent for the past 4+ yearsIC is painful, will have cramping for 3-4 days afterwards. Bilateral cramping randomly throughout the month. Periods are painful, light to moderate flow. States periods are monthly.She had an exploratory lap done in 2019 - will obtain records in [facility] fibroids - last u/s 1 year ago at outside officelast pap 2 years ago per patient - normalhas tried multiple different BC methods with no improvement (IUD, OCP, etc)neg vaginal d/c, odors, itchingneg n/v/fneg urinary symptomsnormal bowel movements AUGIE Carson [address], [place], [address], [facility] 04/21/2023 17:29:23 07/27/20 23 text/htm l [...] exercise. Mick Hawkins MD [address], [place], [address], [facility] 07/27/2023 10:20:03 02/15/20 24 text/htm l Vaginal/Vulvar ProblemReported by Patient 33yopresents for vaginal discharge/itching/burningsy mptoms present for 1 weeknoticed after taking antibiotics for recent sinus infectionclumpy discharge, itchingSA with steady male partner, vasectomy for BCneg odorsneg pelvic painneg n/v/f AUGIE Carson [address], [place], [address], [facility] 02/15/2024 10:03:21 OBGyn Episode Ob Episode Information Episode Created Date Number of Fetuses Patient Bloodtype Patient rh Status Prepregnancy Weight lbs Domestic Partner Domestic Partner Phone Father Name Purchasing Director Status 04/21/20 23 1 CLOSED Fetus Data [...] Domestic Partner Domestic Partner Phone Father Name Purchasing Director Status 04/21/20 23 1 CLOSED Fetus Data [...] Domestic Partner Domestic Partner Phone Father Name Purchasing Director Status 04/21/20 23 1 CLOSED Fetus Data [...]
--- OUTSIDE RECORDS SUMMARY | 2025-10-14 07:14 | XMS_ITS | Clinical Summary ---
Author Organization [facility] Address [address] [place] [address] Care Team Providers Care Transport Truck Driver Name Role Phone Syeda Galdamez PA-C Primary Care Provider [phone] Source Comments [facility],non-owned Affiliates and Associated Physician Practices is amultiple site organization consisting of ambulatory clinics and hospital sitesin [place], [place], [place] and [place]. This disclosure is being madepursuant to the Care Everywhere program and may not contain all information available regarding this patient. Last updated 18.[facility] Allergies Active Allergy Reactions Criticality Noted Date [...] for test, result negative;Recorded Elsewhere: No Location: [facility] Source: EHR Chronic: N Practice ID: [id number] Billable Time: 01:30:00 PM Single live 08/20/2017 03/04/2024 Overview (03/04/2024): Single live ;Practice ID: [id number] Insufficient weight gain of 08/11/2017 03/04/2024 Overview (03/04/2024): Low weight gain in , third trimester;Recorded Elsewhere: No Location: [facility] Source: EHR Chronic: N Practice ID: [id number] Billable Time: 11:30:00 AM 36 weeks gestation of 08/10/2017 03/04/2024 Overview (03/04/2024): 36 weeks gestation of ;Recorded Elsewhere: No Location: [facility] Source: EHR Chronic: N Practice ID: [id number] Billable Time: 09:49:00 AM 32 weeks gestation of 07/07/2017 03/04/2024 Overview (03/04/2024): 32 weeks gestation of ;Recorded Elsewhere: No Location: [facility] Source: EHR Chronic: N Practice ID: [id number] Billable Time: 11:30:00 AM 23 weeks gestation of 05/11/2017 03/04/2024 Overview (03/04/2024): 23 weeks gestation of ;Recorded Elsewhere: No Location: [facility] Source: EHR Chronic: N Practice ID: [id number] Billable Time: 01:30:00 PM Placenta previa 05/11/2017 03/04/2024 Overview (03/04/2024): Placenta previa specified as w/o hemor, second trimester;Recorded Elsewhere: No Location: [facility] Source: EHR Chronic: N Practice ID: [id number] Billable Time: 01:30:00 PM Secondary amenorrhea 12/25/2016 03/04/2024 Overview (03/04/2024): Amenorrhea;Recorded Elsewhere: No Location: [facility] Source: EHR Chronic: N Practice ID: [id number] Billable Time: 09:15:00 AM Secondary amenorrhea;Practice ID: [id number] Pelvic and perineal pain 05/08/2016 024 Overview (03/04/2024): Pelvic and perineal pain;Recorded Elsewhere: No Location: [facility] Source: EHR Chronic: N Practice ID: [id number] Billable Time: 03:45:00 PM Leukocytosis 04/28/2016 03/04/2024 Overview (03/04/2024): Elevated white blood cell count, unspecified;Recorded Elsewhere: No Location: [facility] Source: EHR Chronic: N Practice ID: [id number] [...] on file 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
--- OUTSIDE RECORDS SUMMARY | 2025-10-14 07:14 | XMS_ITS | Encounter Summary ---
Author Organization [facility] Address [facility] [place] [address] Care Team Providers Care Marble Chip Terrazzo Worker Name Role Phone None, Provider Primary Care Provider Amanda Rubio MD Primary Care Provider [phone] Encounter Details Date Type Department Care Team (Late st Contact Info) Description 01/23/2018 Abstract [facility] CONVERSION [address] [place] [address] , Generic Conversion, Social History Tobacco Use Types Packs/Day Years Used Date Smoking Tobacco: Never Assessed Comments Unknown Sex and Gender Information Value Date Recorded Sex Assigned at Not on file 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 [id number] [address] PCP - General FAMILY PRACTICE 06/03/20 documented as of this encounter
--- OUTSIDE RECORDS SUMMARY | 2025-10-14 07:14 | XMS_ITS | Clinical Summary ---
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
--- NOTE | 2025-10-14 07:15 | ECG_ITS ---
Test Date: 2025-10-14 07:24:19 Measurements Intervals [place] Rate: 96 P: 43 [place]: 152 QRS: 19 QRSD: 96 T: 30 QT: 363 QTc: 459 Interpretive Statements SINUS RHYTHM WITH SINUS ARRHYTHMIA POSSIBLE LEFT VENTRICULAR HYPERTROPHY CONSIDER INFERIOR INFARCT, AGE INDETERMINATE BASELINE ARTIFACT- I, III, AVR, AVL, AVF ABNORMAL ECG Compared to ECG 05/23/2024 12:53:07 HEART RATE HAS DECREASED Electronically Signed On 10-14-2025 09:16:14 MINE ENGINEERING SUPERVISOR by Florian Rayo D.O.
== END 2025-10-14 07:11 | disposition home or self-care (01) ==
LOC: ANHCARD 07:12
PROVIDERS: PCP Physician Assistant; Visit Provider Anesthesiology
DX: R94.31 Abnormal electrocardiogram [ECG] [EKG] (principal); I10 Essential (primary) hypertension
CPT/HCPCS: 93005

== ENCOUNTER 2025-10-16 01:10 | Day surgery (SDC) | payer OTHER, SELFPAY ==
[2025-10-12 17:44] VITALS: BMI 43.0
--- NOTE | 2025-10-12 18:02 | PC.NURSE ---
[facility] has started construction of its new state of the art ER which will open Spring 2026. With this, we anticipate parking may be a challenge for some our surgical patients and families. Parking spaces are limited but are available for all Surgical, obstetrics, and ER patients sharing this lot. If you arrive and find you are having a hard time finding a parking space, please note that we understand the challenges, please drive around the hospital and park near Hospital Entrance 1. When you enter this entrance, you can ask a volunteer to direct or take you back to the surgical waiting area to check in. We appreciate everyone?s understanding of these expected challenges while we build for your future. Report to the Outpatient Waiting Room, entrance under the green pavilion located off [address], at time 6:30AM on date 10/16/2025. Planned Procedure Time:8:30AM.? Time changes happen often and if your time is changed the preop area will call you the afternoon before. - You and your visitor will be asked to self-screen and do not enter if you have any COVID symptoms. Please call surgeon if you need to reschedule. - A mask is optional within the hospital at this time. Patients may have clear liquids (water, carbonated beverages, clear teas, apple juice) until 3 hours prior to surgery with a maximum of 20 ounces. - No food from midnight until time of surgery and no smoking, or chewing tobacco (or any form of nicotine). No chewing gum, candy or mints. Take only the following medications with a SIP of water on the morning of surgery: Buspirone DO NOT STOP ANY OF YOUR OTHER PRESCRIPTION MEDICATIONS PRIOR TO SURGERY EXCEPT THE FOLLOWING Hold all vitamins and supplements for 3 days per anesthesiologist. Medications to discontinue per physician Vitamins Date to take last dose 10/13/2025 Please no make-up, nail mohawk, hairspray, perfume, deodorant, or body powder the day of surgery.? No jewelry (including any body piercings) or valuables the day of surgery, leave them at home.? Please take a shower or bath the night before, or the morning of, surgery with an antibacterial soap.? Wear comfortable, loose fitting clothing.? - Jewelry must be removed prior to entering the operating room.? Rings and piercings that are not removed may be cut off. - The hospital will not accept responsibility for valuables.? - Please leave all valuables, including medications, at home the day of surgery. If you are going home after surgery, a licensed mule driver must drive you home.? - NO public transportation without another adult if you receive anesthesia. - We recommend that an adult stay with you for 24 hours following discharge. - We also recommend that you do not drive, make important decision, drink alcoholic beverages, or take any drugs that were not prescribed by your health care provider for at least 24 hours after your discharge time. Follow any additional instructions given to you from your surgeon. Telephone instructions given to patient and asked if any additional questions and then verbalized understanding. Patient advised to call surgeon office or pre surgery nurse liaison [phone] if any additional questions.
--- NOTE | 2025-10-14 15:30 | PM.IMHP2 ---
H&P: HPI History of Present Illness Date/Time: 10/14/25 15:30 Chief Complaint: Recurrent sinusitis chronic sinusitis right maxillary sinus cyst Narrative: planned surgical procedure Review of Systems Review of Systems: All systems reviewed & are unremarkable except as noted in HPI and below PMFSH Past Medical History Medical History Morbid obesity with BMI of 60.0-69.9, adult Kidney stones Hypertension Otalgia of both ears Acute otalgia Surgical History Surgical History No pertinent past surgical history Social History Social History Smoking status: Never smoker Alcohol intake: never Substance use: never Substance use type: does not use Lack of Transportation: No Lack of Food: Never True Current Housing: I Have Housing Concerned About Future Housing: No Difficulty Paying Gas/Electric Bills: No Difficulty Paying for Meds: No Currently Unemployed: No Education: Trade/Vocational Certificate Difficulty w/ Childcare or Family Care: YES Living arrangements: with family Spiritual care concerns: No Meds Home Medications and Allergies Home Medications ?Medication ?Instructions ?Recorded ?Confirmed ?Type famotidine 40 mg tablet 40 mg PO DAILY 08/06/23 10/12/25 History lisinopril 20 mg tablet 20 mg PO DAILY 08/06/23 10/12/25 History buspirone 15 mg tablet 15 mg PO BID 05/20/24 10/12/25 History omega 6-fjz-wtk-fish oil 1,200 mg 1 cap PO DAILY 05/20/24 10/12/25 History (144 mg-216 mg) capsule (Fish Oil) levofloxacin 750 mg tablet 750 mg PO DAILY #14 tabs 10/12/25 Rx Allergies Allergy/AdvReac Type Severity Reaction Status Date / Time iohexol (From contrast - CT, Allergy Severe Anaphylactic Verified 10/12/25 17:42 X-RAY) Shock Latex, Natural Rubber AdvReac Severe Rash Verified 10/12/25 17:42 Sulfa (Sulfonamide AdvReac Severe Rash Verified 10/12/25 17:42 Antibiotics) Exam Narrative: chronic appearing sinuses Assessment and Plan Assessment and plan (1) Sinusitis: Qualifiers: Chronicity: acute Recurrence: non-recurrent Sinusitis location: pansinusitis Qualified Code(s): J01.40 - Acute pansinusitis, unspecified Code(s): J32.9 - Chronic sinusitis, unspecified Status: Acute Assessment and Plan: plan will be the OR for right-sided image guided endoscopic maxillary antrostomy with tissue removal and total ethmoidectomy. Anesthesia general. Risks were discussed bleeding infection damage to surrounding structures need for further procedures CSF leak brain brain damage change in vision total blindness failure to resolve symptoms damage to any structure of the clavicle by myself damage to any structure during the induction and remains anesthesia including vocal cord paralysis recurrence of the cyst need for revision ESS in the future. Need for prolonged courses of steroids and antibiotics. Patient voiced understanding of these risks and agreed. (2) Chronic sinusitis: Code(s): J32.9 - Chronic sinusitis, unspecified Status: Acute
[2025-10-16] VITALS (9 sets, daily range): BP systolic 123–149; BP diastolic 72–100; PULSE 67–125; RESP 14–20; TEMP 36.5–36.7; O2SAT 98–99
--- OUTSIDE RECORDS SUMMARY | 2025-10-16 01:12 | XMS_ITS | Data Portability ---
Author Organization [facility] Address [address] [place] [address] Care Team Providers Care Dock Associate Name Role Phone GLADIS WILD Primary Care [...] Lab urinalys is, dipstick 2023 024 SHERMAN [facility], [address], [address], [place], [address], 4 10:52:21 urinalys is, dipstick 2022 023 ricarda [facility], [address], [address], [place], [address], 3 16:50:44 pregnanc y test, urine 2022 023 sharonda [address], [address], [place], [address], 3 17:29:19 Referral None recorded . Procedures None recorded . Surgeries None recorded . Imaging US, pelvis, complete 2022 023 vschroedter He[place], [address], [address], [place], [address], 3 16:28:18 Medication Orders fluconaz ole 150 mg tablet 2023 024 [id number], [address], [place], [id number], 4 09:55:32 nystatin -triamci nolone 100,000 unit/gra m-0.1 % topical ointment 2023 024 [facility] #[id number], [address], [place], [id number], 4 09:55:26 Patient TargetsNo targets recorded. Patient InstructionsNo instructions recorded. Reason for Referral None Reported. Results Created Date Observation Date Name Description Value Unit Range Abnormal Flag Note LastModifiedBy Organization Detail LastModifiedTime 04/21/2004/21/2023 CT/GC AND TRICH OMONA S VAGIN LEIGH (RRNA ), SWAB chlamydia trachomatis, PCR Negati ve negati ve Not Available [facility] (Lab) [address], [place], [address], 04/22/2023 14:04:38 04/21/20 23 04/21/2023 CT/GC AND TRICH OMONA S VAGIN LEIGH (RRNA ), SWAB neisseria gonorrhoeae, PCR Negati ve negati ve Not Available [facility] (Lab) [address], [place], [address], 04/22/2023 14:04:38 04/21/20 23 04/21/2023 CT/GC AND TRICH OMONA S VAGIN LEIGH (RRNA ), SWAB trichomonas vaginalis ribosomal RNA (rrna) Negati ve negati ve Not Available [facility] (Lab) [address], [place], [address], 04/22/2023 14:04:38 04/21/20 23 04/21/2023 pregn charlene test, urine HCG negati ve Not Available [facility] [address], [place], [address], 04/21/2023 17:29:08 04/21/20 23 04/21/2023 urina lysis , dipst ick Leukocytes neg Not Available [facility] sameer [address], [place], [address], 04/21/2023 16:46:03 04/21/20 23 04/21/2023 urina lysis , dipst ick Nitrite neg Not Available [facility] [address], [place], [address], 04/21/2023 16:46:03 04/21/20 23 04/21/2023 urina lysis , dipst ick Urobilinogen neg Not Available [facility] nadiya [address], [place], [address], 04/21/2023 16:46:03 04/21/20 23 04/21/2023 urina lysis , dipst ick Protein neg Not Available [facility] [address], [place], [address], 04/21/2023 16:46:03 04/21/20 23 04/21/2023 urina lysis , dipst ick pH 5 Not Available [facility] [address], [place], [address], 04/21/2023 16:46:03 04/21/20 23 04/21/2023 urina lysis , dipst ick Specific [place] 1.005 Not Available [facility] [address], [place], [address], 04/21/2023 16:46:03 04/21/20 23 04/21/2023 urina lysis , dipst ick Ketone neg Not Available [facility] [address], [place], [address], 04/21/2023 16:46:03 04/21/20 23 04/21/2023 urina lysis , dipst ick Bilirubin neg Not Available [facility] [address], [place], [address], 04/21/2023 16:46:03 04/21/20 23 04/21/2023 urina lysis , dipst ick Glucose neg Not Available [facility] [address], [place], [address], 04/21/2023 16:46:03 04/21/20 23 04/21/2023 urina lysis , dipst ick Appearance clear Not Available [facility] [address], [place], [address], 04/21/2023 16:46:03 04/21/20 23 04/21/2023 urina lysis , dipst ick Color yellow Not Available [facility] [address], [place], [address], 04/21/2023 16:46:03 07/27/20 23 07/27/2023 IMAGE GUIDE [...] blaine and/o r histo rical findi ngs, [facility] myranda monty edmund ion is recom robert d, as bautistai josé leonard nted. Not Available [facility] (Lab) [address], [place], [address], 07/28/2023 18:57:21 02/15/20 24 02/15/2024 VAGIN ITIS/ VAGIN OSIS, DNA PROBE ivan sp. detection, direct probe Negati ve negati ve Not Available [facility] (Lab) [address], [place], [address], 02/16/2024 14:11:27 02/15/20 24 02/15/2024 VAGIN ITIS/ VAGIN OSIS, DNA PROBE gardnerella vag. detection, direct probe Negati ve negati ve Not Available [facility] (Lab) [address], [place], [address], 02/16/2024 14:11:27 02/15/20 24 02/15/2024 VAGIN ITIS/ VAGIN OSIS, DNA PROBE trichomonas vag. detection, direct probe Negati ve negati ve Not Available [facility] (Lab) [address], [place], [address], 02/16/2024 14:11:27 Result Notes None recorded. Problems Name Problem SNOMED Code Status Onset Date Resolution Date Notes Provider Name and Address Organization Details Recorded Time SNOMED CT Concept Active 2014 Encntr for general adult medical exam w/o abnormal findings; Recorded Elsewhere : No Locati on: [facility] So urce: EHR Chron ic: N Practic e ID: 0001 Bill able Time: 01:00:00 PM Not Available [facility] 0 18:47:[address] Concept Active 2014 Well woman check w/ abnormal finding;R ecorded Elsewhere : No Locati on: [facility] So urce: EHR Chron ic: N Practic e ID: 0001 Bill able Time: 01:00:00 PM Not Available [facility] 0 18:47:48 Blood leukocyte number above reference range 274297981 Active 2015 Elevated white blood cell count, unspecifi ed;Record ed Elsewhere : No Locati on: [facility] So urce: EHR Chron ic: N Practic e ID: 0001 Bill able Time: 01:45:00 PM Not Available [facility] 0 18:47:47 Pelvic and perineal pain 873268407 Active 2015 Pelvic and perineal pain;Amador rded Elsewhere : No Locati on: [facility] So urce: EHR Chron ic: N Practic e ID: 0001 Bill able Time: 03:45:00 PM Not Available [facility] 0 18:47:46 Disorder of intrauter ine contracep tive device Active 2015 [facility] compl of intrauter ine contracep tive device, init encntr;Re corded Elsewhere : No Locati on: [facility] So urce: EHR Chron ic: N Practic e ID: 0001 Bill able Time: 03:30:00 PM Not Available [facility] 0 18:47:48 Removal of intrauter ine device Active 2015 Encounter for removal of intrauter ine contracep tive device;Re corded Elsewhere : No Locati on: [facility] So urce: EHR Chron ic: N Practic e ID: 0001 Bill able Time: 01:45:00 PM Not Available [facility] 0 18:47:50 Amenorrhe a 55448096 Active 2016 Amenorrhe a;Recorde d Elsewhere : No Locati on: [facility] So urce: EHR Chron ic: N Practic e ID: 0001 Bill able Time: 09:15:00 AM Not Available [facility] 0 18:47:48 detection examinati on Active 2016 Encounter for test, result positive; Recorded Elsewhere : No Locati on: [facility] So urce: EHR Chron ic: N Practic e ID: 0001 Bill able Time: 09:15:00 AM Not Available [facility] 0 18:47:48 Secondary amenorrhe a 589968345 Active 2016 Secondary amenorrhe a;Practic e ID: 0001 Not Available [facility] 0 18:47:54 Uterine size for dates discrepan cy Active 2016 Uterine size-date discrepan cy, first trimester ;Recorded Elsewhere : No Locati on: [facility] So urce: EHR Chron ic: N Practic e ID: 0001 Bill able Time: 08:30:00 AM Not Available [facility] 0 18:47:47 Gestation period, 23 weeks 13035483 Active 2016 23 weeks gestation of ;Recorded Elsewhere : No Locati on: [facility] So urce: EHR Chron ic: N Practic e ID: 0001 Bill able Time: 01:30:00 PM Not Available [facility] 0 18:47:49 Placenta previa 87632440 Active 2016 Placenta previa specified as w/o hemor, second trimester ;Recorded Elsewhere : No Locati on: [facility] So urce: EHR Chron ic: N Practic e ID: 0001 Bill able Time: 01:30:00 PM Not Available [facility] 0 18:47:51 Normal in multigrav rubi 77385163296 4106 Active 2016 Encounter for suprvsn of normal , third trimester ;Recorded Elsewhere : No Locati on: [facility] So urce: EHR Chron ic: N Practic e ID: 0001 Bill able Time: 09:30:00 AM Not Available [facility] 0 18:47:46 Uterine size for dates discrepan cy Active 2016 Uterine size-date discrepan cy, third trimester ;Recorded Elsewhere : No Locati on: [facility] So urce: EHR Chron ic: N Practic e ID: 0001 Bill able Time: 11:30:00 AM Not Available [facility] 0 18:47:46 Gestation period, 32 weeks 0218141 Active 2016 32 weeks gestation of ;Recorded Elsewhere : No Locati on: [facility] So urce: EHR Chron ic: N Practic e ID: 0001 Bill able Time: 11:30:00 AM Not Available [facility] 0 18:47:[address] Concept Active 2016 Decreased movements , third trimester , unsp;Amador rded Elsewhere : No Locati on: [facility] So urce: EHR Chron ic: N Practic e ID: 0001 Bill able Time: 09:49:00 AM Not Available [facility] 0 18:47:46 Gestation period, 36 weeks 83914556 Active 2016 36 weeks gestation of ;Recorded Elsewhere : No Locati on: [facility] So urce: EHR Chron ic: N Practic e ID: 0001 Bill able Time: 09:49:00 AM Not Available [facility] 0 18:47:49 Insuffici ent weight gain of 85653713 Active 2016 Low weight gain in , third trimester ;Recorded Elsewhere : No Locati on: [facility] So urce: EHR Chron ic: N Practic e ID: 0001 Bill able Time: 11:30:00 AM Not Available [facility] 0 18:47:48 Gestation period, 37 weeks 53852413 Active 2016 37 weeks gestation of ;Recorded Elsewhere : No Locati on: [facility] So urce: EHR Chron ic: N Practic e ID: 0001 Bill able Time: 11:30:00 AM Not Available [facility] 0 18:47:50 Premature rupture of membranes 39311309 Active 2016 Full-term sadia ROM, unsp time betw rupture and onset labor;Pra ctice ID: 0001 Not Available [facility] 0 18:47:53 Single live from cgae 680571515 Active 2016 Single live ;Pra ctice ID: 0001 Not Available [facility] 0 18:47:53 Gestation period, 38 weeks 96696793 Active 2016 38 weeks gestation of ;Practice ID: 0001 Not Available [facility] 0 18:47:56 Lochia finding Active 2016 Encounter for routine postpartu m follow-up ;Recorded Elsewhere : No Locati on: [facility] So urce: EHR Chron ic: N Practic e ID: 0001 Bill able Time: 09:45:00 AM Not Available [facility] 0 18:47:47 test negative 995854445 Active 2017 Encounter for test, result negative; Recorded Elsewhere : No Locati on: [facility] So urce: EHR Chron ic: N Practic e ID: 0001 Bill able Time: 01:30:00 PM Not Available [facility] 0 18:47:46 Insertion of intrauter ine contracep tive device Active 2017 Encounter for insertion of intrauter ine contracep tive device;Re corded Elsewhere : No Locati on: [facility] So urce: EHR Chron ic: N Practic e ID: 0001 Bill able Time: 01:30:00 PM Not Available [facility] 0 18:47:48 Contracep tive sheath status 976626015 Active 2017 Encounter for routine checking of intrauter ine contracep dev;Pract ice ID: 0001 Not Available [facility] 0 18:47:[address] Concept Active 2017 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) w/o abn findings; Recorded Elsewhere : No Locati on: [facility] So urce: EHR Chron ic: N Practic e ID: 0001 Bill able Time: 08:30:00 AM Not Available [facility] 0 18:47:47 Sexual function painful Active 2017 Dyspareun ia;Record ed Elsewhere : No Locati on: [facility] So urce: EHR Chron ic: N Practic e ID: 0001 Bill able Time: 11:15:00 AM Not Available [facility] 0 18:47:47 Procedure on genitouri nary system Active 2018 Encounter for surgical aftercare following surgery on the genitouri nary system;Re corded Elsewhere : No Locati on: [facility] So urce: EHR Chron ic: N Practic e ID: 0001 Bill able Time: 10:00:00 AM Not Available [facility] 0 18:47:46 Postopera tive care Active 2018 Encounter for surgical aftercare following surgery on the genitouri nary system;Re corded Elsewhere : No Locati on: [facility] So urce: EHR Chron ic: N Practic e ID: 0001 Bill able Time: 10:00:00 AM Not Available [facility] 0 18:47:46 Notes:Encounter for antenata l screening of mother Recorded Elsewhere: No Location: [facility] Source: EHR Chronic: N Practice ID: 0001 Billable Time: 01:30:00 PM Encounter for screening of mother Practice ID: 0001 Encounter for screening of mother Recorded Elsewhere: No Location: [facility] Source: EHR Chronic: N Practice ID: 0001 Billable Time: 08:15:00 AM Encounter for screening of mother Practice ID: 0001 Encounter for screening of mother Recorded Elsewhere: No Location: [facility] Source: EHR Chronic: N Practice ID: 0001 Billable Time: 08:45:00 AM Encounter for screening of mother Practice ID: 0001 Problem Notes None recorded. Procedures Surgical History Date Name Laterality Status Provider Name and Address Organization Details Recorded Time 08/04/20 19 Date of Last Pap Smear completed Tia Lockhart [facility] 02/15/2024 09:46:58 11/23/19 19 diagnostic laparoscopy completed Shobha Hurst [facility] 07/12/2020 16:15:05 [facility]ar[facility] 04/21/2023 15:55:[address] [facility] 04/21/2023 15:55:34 tonsilectomy/ad enoids completed [facility] 04/21/2023 15:55:34 Imaging Results None recorded. Procedure Notes None recorded. Medical Equipment None Reported. Allergies Allergen ID Allergen Name Allergen Category Reaction Reaction Severity Criticality Documentation Date Start Date Code Code System Note Provider Name and Address Organization Details Recorded Time 96894 Substance with sulfonami de structure and antibacte rial mechanism of action (substanc e) medicatio n hives moderate Not available 10/26/2020 90664 8003 SNOMED Lore wood [facility] 3 15:55:21 68144 Iodinated contrast media (substanc e) medicatio n anaphylax is severe Not available 04/21/2023 96968 2003 SNOMED Lore Shari wood [place] - [facility] 3 15:55:21 Medications Name Sig Start Date Stop Date Status Note LastModified by Organization Details LastModified Time cyclobenz aprine 10 mg tablet take 1 tablet by oral route 2 times every day 09/17 completed Prescrib ed Elsewher e: No Locat ion: [facility] odify By: shruthi baez DateTime : 03/17/20 17 09:30:00 AM Not Available Not Available Not Available Mirena 21 mcg/24 hr (up to 8 years) 52 mg intrauter ine device 04/21 completed Prescrib ed Elsewher e: Yes Loca tion: [facility] odify By: lyudmila mora DateTime : 12/21/19 [...] Elsewher e: No Locat ion: Jenny micaela [facility] odify By: shruthi baez DateTime : 04/28/20 16 01:45:00 PM Not Available Not Available Not Available nystatin- triamcino lone 100,000 unit/gram -0.1 % topical ointment active Not Available Not Available Not Available Zofran 8 mg tablet take 1 tablet by oral route every 8 hours 09/17 completed Prescrib ed Elsewher e: No Locat ion: Harrison hinojosa [facility] odify By: shruthi baez DateTime : 02/18/20 17 09:15:00 AM Not Available Not Available Not Available Metrogel Vaginal 0.75 % (37.5 mg/5 gram) insert 1 applicat orful by vaginal route for 5 nights at bedtime 10/19 completed Prescrib ed Elsewher e: No [facility]: shruthi baez DateTime : 08/24/20 18 11:06:22 AM Not Available Not Available Not Available Depo-Prov era 150 mg/mL intramusc ular suspensio n inject 1 millilit er by intramus cular route every 3 months 04/28 completed Prescrib ed Elsewher e: No [facility] By: shruthi garcesuntmyranda DateTime : 10/03/20 [...] Prescrib ed Elsewher e: No Locat ion: [facility] odify By: shruthi baez DateTime : 11/12/19 [...] Available Not Available No t Available 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 02/15/2024 09:46:44 Date Recorded Systolic And Diastolic Provider Name and Address Organization Details Last Updated DateTime 04/21/2023 156/98 mm[Hg] MICHAEL Carson P [address], [place], [address], [facility] 04/21/2023 17:27:21 Date Recorded Body height Body mass index (BMI) Body weight Systolic And Diastolic Provider Name and Address Organization Details Last Updated DateTime 04/21/2023 162.56 cm 60.7 kg/m2 853600.54 g 163/104 mm[Hg] Lore Lee [facility] 04/21/2023 15:55:18 Date Recorded Body height Body mass index (BMI) Body weight Systolic And Diastolic Provider Name and Address Organization Details Last Updated DateTime 07/27/2023 162.56 cm 56 kg/m2 490615.11 g 146/85 mm[Hg] Valeria Guallpa [facility] 07/27/2023 09:49:26 Social History Question Answer Notes LastModified by Organizat ion Details LastModified Time Tobacco Smoking Status Never [facility]oker [facility] 07/27/2023 09:51:30 Are You Blind Or [...] Or The Highest Degree You Have Received? WI00814-6 Information not available 04/21/2023 Are There Any [...] Have Difficulty Walking Or Climbing Stairs? No [email or web address] Information not available 07/27/2023 Sex: Unknown Functional [...] able to care for yourself independently? 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 No [email or web address] Information not available 07/27/2023 What is your exercise level? Occasional Information not available 04/21/2023 Mental Status Question Answer Note LastModified by Organization D etails LastModified Time Do you feel stressed (tense, restless, nervous, or anxious, or unable to sleep at night)? [id number] Information not available 02/15/2024 Family History Relationship Description Onset Age of this Age Resolved Age Notes LastModified by Organization Details LastModified Time Maternal Grandfather Asthma [email or web address] Not available 01/2020 16:13:06 Maternal Grandfather Hypertensive disorder [email or web address] Not available 07/12 16:13:16 Maternal Grandfather Disorder of thyroid gland [email or web address] Not available 07/12 16:13:23 Mother Malignant neoplasm of cervix uteri [email or web address] Not available 16:13:31 Mother Disorder of thyroid gland [email or web address] Not available 07/12 16:13:39 Paternal Grandfather Hypertensive disorder [email or web address] Not available 07/12 16:13:50 Medical History Condition Response Allergies (Food, seasonal, environmental ) Y Drug/Latex Allergies/Reactions Y Anxiety Disorder Y Acid Reflux (GERD) Y Depression/ depression Y Hypertension Y Gynecological History Statement/Question Response [...] ICD10 Code Diagnosis IMO Codes Diagnosis Note [id number] AUGIE Carson [facility] [address] [address] 04/21/2023 15:36:33 04/21/2023 17:34:47 Pain in pelvis 43755638 R10.2 This patient is a 32 -year-old [...] ED precaution s discussed. No current symptoms [id number] Mick Hawkins MD [facility] [address] [address] 07/27/2023 09:37:25 07/27/2023 10:23:57 Blood leukocyte number above reference range 934480040 D72.829 Gynecologi c examination 45771440 Z01.419 Annual gynecologi blaine exam performed. Patient [...] email. Pap smear-toda y laboratory evaluation -done [id number] AUGIE Carson [facility] [address] [address] 02/15/2024 09:35:45 02/15/2024 10:12:45 Urinary symptoms 781378106 R39.9 Vaginitis 03809368 N76.0 vaginitis panel sentdeclin ed STI screensusp [...] Cano Member ID Guarantor Name 02/15/2024 1 [facility] - DOS PRIOR TO 2025 (MEDICAID REPLACEMENT - HMO) [id number] Yanni Lopez [id number] Yanni Lopez 07/18/2024 1 [facility] - DOS ON OR AFTER 21 (MEDICAID REPLACEMENT - HMO) Yanni Lopez [id number] Yanni Lopez Notes Date Note Type Note Provider Name and Address Organization Details Recorded Time 04/21/20 23 text/htm l 32yo [id number] for evaluation of chronic pelvic painpresent for the past 4+ yearsIC is painful, will have cramping for 3-4 days afterwards. Bilateral cramping randomly throughout the month. Periods are painful, light to moderate flow. States periods are monthly.She had an exploratory lap done in 2019 - will obtain records in nexLOFTYx of fibroids - last u/s 1 year ago at outside officelast pap 2 years ago per patient - normalhas tried multiple different BC methods with no improvement (IUD, OCP, etc)neg vaginal d/c, odors, itchingneg n/v/fneg urinary symptomsnormal bowel movements AUGIE Carson [address], [place], [address], [facility] 04/21/2023 17:29:23 07/27/20 23 text/htm l [...] exercise. Mick Hawkins MD [address], [place], [address], [facility] 07/27/2023 10:20:03 02/15/20 24 text/htm l Vaginal/Vulvar ProblemReported by Patient 33yopresents for vaginal discharge/itching/burningsy mptoms present for 1 weeknoticed after taking antibiotics for recent sinus infectionclumpy discharge, itchingSA with steady male partner, vasectomy for BCneg odorsneg pelvic painneg n/v/f AUGIE Carson [address], [place], [address], [facility] 02/15/2024 10:03:21 OBGyn Episode Ob Episode Information Episode Created Date Number of Fetuses Patient Bloodtype Patient rh Status Prepregnancy Weight lbs Domestic Partner Domestic Partner Phone Father Name Slope Runner Status 04/21/20 23 1 CLOSED Fetus Data [...] Domestic Partner Domestic Partner Phone Father Name Slope Runner Status 04/21/20 23 1 CLOSED Fetus Data [...] Domestic Partner Domestic Partner Phone Father Name Slope Runner Status 04/21/20 23 1 CLOSED Fetus Data First Name Last Name Admitted to NICU Weight (g) Sex Living Outcome Pediatric Complications Fetus ID Race Codes Race Delivery Type 3061.74 6 F Full Term Vaginal Delivery Josee Lias Calculation Initial Jose Elias Date Initial Exam [...]
--- OUTSIDE RECORDS SUMMARY | 2025-10-16 01:12 | XMS_ITS | Clinical Summary ---
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
--- OUTSIDE RECORDS SUMMARY | 2025-10-16 01:12 | XMS_ITS | Clinical Summary ---
Author Organization [facility] Address [address] [place] [address] Care Team Providers Care Script Girl Name Role Phone Syeda Galdamez PA-C Primary Care Provider [phone] Source Comments [facility],non-owned Affiliates and Associated Physician Practices is amultiple site organization consisting of ambulatory clinics and hospital sitesin [place], [place], [place] and [place]. This disclosure is being madepursuant to the Care Everywhere program and may not contain all information available regarding this patient. Last updated 18.[facility] Allergies Active Allergy Reactions Criticality Noted Date [...] for test, result negative;Recorded Elsewhere: No Location: [facility] Source: EHR Chronic: N Practice ID: [id number] Billable Time: 01:30:00 PM Single live 08/20/2017 03/04/2024 Overview (03/04/2024): Single live ;Practice ID: 0001 Insufficient weight gain of 08/11/2017 03/04/2024 Overview (03/04/2024): Low weight gain in , third trimester;Recorded Elsewhere: No Location: [facility] Source: EHR Chronic: N Practice ID: 0001 Billable Time: 11:30:00 AM 36 weeks gestation of 08/10/2017 03/04/2024 Overview (03/04/2024): 36 weeks gestation of ;Recorded Elsewhere: No Location: [facility] Source: EHR Chronic: N Practice ID: 0001 Billable Time: 09:49:00 AM 32 weeks gestation of 07/07/2017 03/04/2024 Overview (03/04/2024): 32 weeks gestation of ;Recorded Elsewhere: No Location: [facility] Source: EHR Chronic: N Practice ID: 0001 Billable Time: 11:30:00 AM 23 weeks gestation of 05/11/2017 03/04/2024 Overview (03/04/2024): 23 weeks gestation of ;Recorded Elsewhere: No Location: [facility] Source: EHR Chronic: N Practice ID: 0001 Billable Time: 01:30:00 PM Placenta previa 05/11/2017 03/04/2024 Overview (03/04/2024): Placenta previa specified as w/o hemor, second trimester;Recorded Elsewhere: No Location: [facility] Source: EHR Chronic: N Practice ID: 0001 Billable Time: 01:30:00 PM Secondary amenorrhea 12/25/2016 03/04/2024 Overview (03/04/2024): Amenorrhea;Recorded Elsewhere: No Location: [facility] Source: EHR Chronic: N Practice ID: 0001 Billable Time: 09:15:00 AM Secondary amenorrhea;Practice ID: 0001 Pelvic and perineal pain 05/08/2016 024 Overview (03/04/2024): Pelvic and perineal pain;Recorded Elsewhere: No Location: [facility] Source: EHR Chronic: N Practice ID: 0001 Billable Time: 03:45:00 PM Leukocytosis 04/28/2016 03/04/2024 Overview (03/04/2024): Elevated white blood cell count, unspecified;Recorded Elsewhere: No Location: [facility] Source: EHR Chronic: N Practice ID: 0001 [...] on file 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
--- OUTSIDE RECORDS SUMMARY | 2025-10-16 01:12 | XMS_ITS | Encounter Summary ---
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 [facility] [address] PCP - General FAMILY PRACTICE 06/03/20 documented as of this encounter
--- OUTSIDE RECORDS SUMMARY | 2025-10-16 01:12 | XMS_ITS | Data Portability ---
Author Organization [facility] , [facility] Address [address] [place] [address] Assessment No assessment recorded. Plan of Treatment Reminders Order Date Submit Date Provider Last Modified By Organization Details Last Modified Time Details Appointments None recorded. Lab test, urine 2022 023 [facility], [address] [place], [address], 3 07:52:10 bacterial vaginosis + vaginitis panel, vaginal [address] [facility], [address] [place], [address], 2 15:52:35 Referral primary care provider referral - Establish care. 2021 022 randy Varela MD, [address] [facility], [place], [address], 12:46:39 Procedures None recorded. Surgeries None recorded. Imaging US, breast, unilateral - LEFT [address] [facility], [address], [place] [address], [place], [address], 15:57:01 Medication Orders None recorded. Patient TargetsNo targets recorded. Patient Instructions Encounter Date Encounter Id Patient Instructions Last Modified By Organization Details Last Modified Time 04/08/2022 [id number] Patient Health Questionnaire-9* [email or web address] Not available 04/28/2022 12:47:35 weight managemen t education [email or web address] Not available 04/08/2022 19:38:23 Reason for Referral Primary Care Provider Referr al for Gynecologic examination Establish care. Referring Physician: Tracey Hsu, PROP WORKER, Encounter Date: 04/08/2022 Results Created Date Observation Date Name Description Value Unit Range Abnormal Flag Note LastModifiedBy Organization Detail LastModifiedTime 04/08/20 22 04/09/2022 VAGIN ITIS PLUS STD PANEL bacterial vaginosis BV POS negati ve abnormal Not Available [facility] [address] [place] [address], [address], 04/09/2022 15:52:35 04/08/20 22 04/09/2022 VAGIN ITIS PLUS STD PANEL ivan species C. spp neg negati ve normal Not Available [facility] [address] [place] [address], [address], 04/09/2022 15:52:35 04/08/20 22 04/09/2022 VAGIN ITIS PLUS STD PANEL ivan glabrata C. gla neg negati ve normal Not Available [facility] [address] [place] [address], [address], 04/09/2022 15:52:35 04/08/20 22 04/09/2022 VAGIN ITIS PLUS STD PANEL trichomonas vaginalis CV/TV TRICH neg negati ve normal Not Available [facility] [address] [place] [address], [address], 04/09/2022 15:52:35 04/08/20 22 04/09/2022 VAGIN ITIS PLUS STD PANEL chlamydia trachomatis CT neg negati ve normal If both Pap and Endoc ervic al swabs are colle cted, the Prese rvCyt Solut ion liqui d Pap speci men must be colle cted befor e the endoc ervic al swab speci men. Not Available [facility] [address] [place], [address], 04/09/2022 15:52:35 05/04/09/2022 VAGIN ITIS PLUS STD PANEL neisseria gonorrhoeae GC neg negati ve normal If both Pap and Endoc ervic al swabs are colle cted, the Prese rvCyt Solut ion liqui d Pap speci men must be colle cted befor e the endoc ervic al swab speci men. Not Available [facility] [address] [facility], [place], [address], 04/09/2022 15:52:35 03/05/20 23 03/05/2023 pregn charlene test, urine HCG negati ve Not Available [facility] [address] [facility], [place], [address], 03/04/2023 00:23:37 Result Notes None recorded. Problems [...] : NO ProblemS tatus: Resolve Not Available [facility] 2 21:40:34 Screenin g for malignan t neoplasm of cervix Completed 201911/27/2020 Encounte r for screenin g for malignan t neoplasm of cervix; Progress : Stable Added By: Tracey Hsu Add to Current Problems : NO ProblemS tatus: Resolve Not Available [facility] 2 21:40:35 Umbilica l hernia 342062929 Completed 201904/11/2021 Umbilica l hernia without obstruct ion or gangrene ; Progress : Stable Added By: Tracey Hsu Add to Current Problems : NO ProblemS tatus: Resolve Not Available [facility] 2 21:40:35 Pelvic and perineal pain 936461255 Completed 202004/11/2021 Pelvic and perineal pain; Progress : Stable Added By: Kym Paige Add to Current Problems : NO ProblemS tatus: Resolve Not Available [facility] 2 21:40:35 Pain of breast 01333745 Completed 202004/11/2021 Mastodyn ia; Progress : Stable Added By: Kym Paige Add to Current Problems : NO ProblemS tatus: Resolve Not Available [facility] 2 21:40:35 Acute vaginiti s 79883944 Completed 202004/11/2021 Acute vaginiti s; Progress : Stable Added By: Kym Paige Add to Current Problems : NO ProblemS tatus: Resolve Not Available [facility] 2 21:40:35 Removal of intraute rine device Completed 202006/13/2021 Encounte r for removal of intraute rine contrace ptive device; Progress : Stable Added By: Tracey Hsu Add to Current Problems : NO ProblemS tatus: Resolve Not Available [facility] 2 21:40:35 Abnormal uterine bleeding 83394111825 100 Completed 202004/08/2022 Other specifie d abnormal uterine and vaginal bleeding ; Progress : Stable Added By: Tracey Hsu Add to Current Problems : YES ProblemS tatus: Current Tracey Hsu CNM [address] [place], [address] , [facility] 2 21:50:18 Body mass index 40+ - severely obese 712756272 Active 2021 Tracey Hsu CNM [address] [place], [address] , [employer] [facility] [facility] 2 21:44:28 Chronic depressi on 726505367 Active 2021 PhQ score 13. Tracey Hsu CNM [address] [place], [address] , [employer] [facility] 2 21:53:27 Problem Notes None recorded. Procedures Surgical History Date Name Laterality Status Provider Name and Address Organization Details Recorded Time 2 Most Recent Mammogram completed Lisa Carroll [facility] 04/08/2022 17:47:58 1 Date of Last Pap Smear completed Tracey Hsu, CNM [address] [facility], [place], [address], [facility] 04/08/2022 18:08:55 hernia repair completed Tala Patriciasisizuleimajosh [facility] 03/10/2022 00:12:21 Imaging Results None recorded. Procedure Notes None recorded. Medical Equipment None Reported. Allergies Allergen ID Allergen Name Allergen Category Reaction Reaction Severity Criticality Documentation Date Start Date Code Code System Note Provider Name and Address Organization Details Recorded Time 884400 Substance with sulfonami de structure and antibacte rial mechanism of action (substanc e) medicatio n Not available Not available Not available 08/30/20212020 36292 8003 SNOMED Sever ity: Moder ate; Not Available [facility] 01:05:20 731210 Iodinated contrast media (substanc e) medicatio n Not available Not available Not available 04/08/2022 99032 2003 SNOMED Lisa Britsch [facility], [facility] 17:41:04 Medications Name Sig Start Date Stop Date Status Note LastModified by Organization Details LastModified Time Mirena 21 mcg/24 hr (up to 8 years) 52 mg intrauter ine device 05/16 completed Mirena 20 mcg/24 hours (5 yrs) 52 mg Intraute rine Intraute rine Device RxNorm: 771902 Allow Substitu tion: False Refill Denied: No [...] Metrogel VaginaL 0.75 % Vaginal Gel RxNorm: 315858 Allow Substitu tion: True Refill Denied: No [...] completed Zoloft 25 mg oral tablet RxNorm: 498509 Allow Substitu tion: True Refill Denied: No [...] Updated DateTime 03/05/2023 162.56 cm 62 kg/m2 476087.8 5 g 140/88 mm[Hg] Radha Parham MA [facility] 03/05/2023 11:07:00 Date Recorded Body height Body mass index (BMI) Body weight Body temperature Systolic And Diastolic Provider Name and Address Organization Details Last Updated DateTime 03/10/2022 162.56 cm 57.2 kg/m2 323989. 26 g 97 [degF] 138/78 mm[Hg] Suad Mullins MA [facility] IV 17:39:35 Date Recorded Body height Body mass index (BMI) Body weight Body temperature Systolic And Diastolic Provider Name and Address Organization Details Last Updated DateTime 04/08/2022 162.56 cm 57.5 kg/m2 930402. 73 g 97.6 [degF] 126/82 mm[Hg] Lisa Carroll [employer] [facility] 17:40:31 Social History Question Answer Notes LastModified by Organizat ion Details LastModified Time Tobacco Smoking Status Never Smoker Lisa wood [employer] 04/08/2022 17:40:49 Are You Blind Or Do [...] ICD10 Code Diagnosis IMO Codes Diagnosis Note [id number] GERRY LILLY CNM [facility] [address] [place] [address] 03/10/2022 16:53:27 03/10/2022 17:52:02 Tenderness of breast 85385513 N64.4 left breast tender and vericositi es noted on exam. Denies redness, swelling or nodule. Slight discolorat ion noted. US at [place] for further eval. Pt declines annual today, prefers Tracey for exam. Plan to reschedule on Mar[place] schedule next week. [id number] Tracey Hsu CNM [facility] [address] [place] [address] 04/08/2022 16:50:27 04/08/2022 22:00:07 Gynecologic examination 52817193 Z01.419 31 y.o. here for annual exam. [...] for annual or PRN Depression screening 171 337163 Z13.31 Phq score 13. pt declines initiation of anti-depre ssant medication - denies suicidal ideation. Does not want to see counselor bc thinks insurance will not cover it. Venereal d isease screening 736086905 Z11.3 [id number] Tracey Hsu CNM [facility] [address] [place] [address] 03/05/2023 10:46:50 03/06/2023 10:20:43 Missed period 36431183 N92.5 Pt frequently misses periods and has [...] Cano Member ID Guarantor Name 12/19/2023 1 [facility] - DOS ON OR AFTER 21 (MEDICAID REPLACEMENT - HMO) Yanni Marroquin [id number] Yanni Marroquin Notes Date Note Type Note [...] factors, patient reportsnone. GERRY LILLY CNM [address] [facility], [place], [address], [facility] 03/10/2022 17:51:56 2 text/html Annual GYNReported [...] anxiety, andno pmdd. Tracey Hsu CNM [address] [place], [address], [facility] 04/08/2022 21:55:07 3 text/html Menstrual IrregularityReported by PatientContextFor premenopause, patient reportsno contraception use and sexually active.Symptoms:For associated symptoms, patient reportsobesitybut reportsno fatigue. For prior evaluation, patient reportspelvic ultrasound on: (03/25),negative test, andother labs/procedures done:. Patient's periods have been irregular and her test are negative, Tracey sHu CNM [address] [place], [address], [facility] 03/06/2023 10:01:35 OBGyn Episode Ob Episode Information Episode Created Date Number of Fetuses Patient Bloodtype Patient rh Status Prepregnancy Weight lbs Domestic Partner Domestic Partner Phone Father Name Neonatologist Status 03/05/20 23 1 CLOSED Fetus Data First Name Last Name Admitted to NICU Weight (g) Sex Living Outcome Pediatric Complications Fetus ID Race Codes Race Delivery Type 3628.73 6 M Full Term [id number] Jose Elias Calculation Initial Jose Elias Date [...] Complications Tubal Sterilization Discharge Date Comments 5 [facility] idural Discharge Information Feeding Method Contraceptive Method Maternal HG B and HCT Levels Ob Episode Information Episode Created Date Number of Fetuses Patient Bloodtype Patient rh Status Prepregnancy Weight lbs Domestic Partner Domestic Partner Phone Father Name Neonatologist Status 03/05/20 23 1 CLOSED Fetus Data First Name Last Name Admitted to NICU Weight (g) Sex Living Outcome Pediatric Complications Fetus ID Race Codes Race Delivery Type 3175.14 4 M Full Term [id number] Jose Elias Calculation Initial Jose Elias Date [...] Complications Tubal Sterilization Discharge Date Comments 1 [facility] Discharge Information Feeding Method Contraceptive Method Maternal HG B and HCT Levels Ob Episode Information Episode Created Date Number of Fetuses Patient Bloodtype Patient rh Status Prepregnancy Weight lbs Domestic Partner Domestic Partner Phone Father Name Neonatologist Status 03/05/20 23 1 CLOSED Fetus Data First Name Last Name Admitted to NICU Weight (g) Sex Living Outcome Pediatric Complications Fetus ID Race Codes Race Delivery Type 3033.16 9704 F Full Term [id number] Jose Elias Calculation Initial Jose Elias Date [...]
--- OUTSIDE RECORDS SUMMARY | 2025-10-16 01:12 | XMS_ITS | Clinical Summary ---
Author Organization [facility] Address [address] [place] [address] Phone Care Team Providers Care Garbage Worker Name Role Phone Provider, Unknown Primary Care Provider Unavaila ble Social History Tobacco Use Types Packs/Day Years Used Date Smoking Tobacco: Never Assessed Comments Unknown Sex and Gender Information Value Date Recorded Sex Assigned at Not on file Legal Sex Female 7:49 AM CDT Gender Identity Not on file Sexual Orientation Not on file Plan of Treatment Not on file Care Teams Garbage Worker Relationship Specialty Start Date End Date Provider, Unknown UNKNOWN PCP - General 02/19/17
[2025-10-16] MEDS: ACETAMINOPHEN 500 MG TABLET 1000 MG PO (07:15)
[2025-10-16] MEDS: LACTATED RINGERS 1,000 ML 30 ML IV CONT (07:15)
[2025-10-16] MEDS: SCOPOLAMINE 1 MG PATCH 1 PATCH TRANSDERM (07:15)
--- NOTE | 2025-10-16 07:22 | WPDHPUPDATE1 ---
History and Physical Update Update Date/Time: 10/16/25 07:22 History and Physical has been reviewed, including an updated exam of the patient. There are NO changes in the patient's condition. Risks, benefits, and alternatives have been discussed and questions answered. Patient agrees to proceed with procedure.
[2025-10-16 07:54] LABS: BEDSIDEPREGUCG Negative (Negative)
--- NOTE | 2025-10-16 08:09 | WPDANESEPPF ---
Anes - Initial Pre Proc Eval Procedure: Operation Date: 10/16/25 08:30 Proposed Procedures p Image Guided Right Endoscopic Maxillary Antrostomy with Tissue Removal, Endoscopic Right Total Ethmoidectomy - Natalio White MD Date/Time: 10/16/25 08:09 Surgeon: Natalio White MD Pre Op Diagnosis: Allergic Rhinitis, Chronic Sinusitis Patient Data Age: 35 Gender: F Height: 1.63 m Weight: 117.6 kg Last Vital Signs Temp 36.7 C 10/16/25 07:15 Pulse 78 10/16/25 07:15 Resp 16 10/16/25 07:15 BP 127/85 10/16/25 07:15 Pulse Ox 98 10/16/25 07:15 O2 Del Method Room Air 10/16/25 07:15 Allergies Allergy/AdvReac Type Severity Reaction Status Date / Time iohexol (From contrast - CT, Allergy Severe Anaphylactic Verified 10/16/25 07:54 X-RAY) Shock Latex, Natural Rubber AdvReac Severe Rash Verified 10/16/25 07:54 Sulfa (Sulfonamide AdvReac Severe Rash Verified 10/16/25 07:54 Antibiotics) Home Medications ?Medication ?Instructions ?Recorded ?Confirmed ?Type famotidine 40 mg tablet 40 mg PO DAILY 08/06/23 10/16/25 History lisinopril 20 mg tablet 20 mg PO DAILY 08/06/23 10/16/25 History buspirone 15 mg tablet 15 mg PO BID 05/20/24 10/16/25 History omega 8-saw-nhh-fish oil 1,200 mg 1 cap PO DAILY 05/20/24 10/16/25 History (144 mg-216 mg) capsule (Fish Oil) levofloxacin 750 mg tablet 750 mg PO DAILY #14 tabs 10/12/25 Rx Laboratory Tests 10/16/25 07:15 POC Urine HCG, Qual Negative (Negative) Patient hx anesthesia problems: none Family hx anesthesia problems: none Results Review: All pre-operative results and documents have been reviewed as part of the pre-operative evaluation. [facility]LY [facility], [facility] Past Medical History Medical History Morbid obesity with BMI of 60.0-69.9, adult Kidney stones Hypertension Otalgia of both ears Acute otalgia Surgical History Surgical History (Updated 10/16/25 @ 08:09 by Mao Xavier MD) H/O sinus surgery Social History Social History Smoking status: Never smoker Alcohol intake: never Substance use: never Substance use type: does not use Lack of Transportation: No Lack of Food: Never True Current Housing: I Have Housing Concerned About Future Housing: No Difficulty Paying Gas/Electric Bills: No Difficulty Paying for Meds: No Currently Unemployed: No Education: Trade/Vocational Certificate Difficulty w/ Childcare or Family Care: YES Living arrangements: with family Spiritual care concerns: No Anes - Eval Final PreProcedure Day of Procedure 10/16/25 08:09 Patient weight: obese Lungs: clear to auscultation Airway: Mallampati scale class II Neurological: alert and oriented Last oral intake: >/= 8 hours ASA classification: III Emergent: no Anesthetic plan: proceed Anesthesia type and monitoring: general ETT and standard monitoring Results Review: All pre-operative results and documents have been reviewed as part of the pre-operative evaluation. Informed Consent: The patient's anesthetic plan and its attendant risks and benefits were discussed with the patient/family/POA. Questions were solicited and answers provided to the satisfaction of the patient/family/POA.
[2025-10-16] MEDS: ONDANSETRON INJ 4 MG/2 ML VIAL IV PUSH (08:15)
[2025-10-16] MEDS: FAMOTIDINE 20 MG/2 ML VIAL IV PUSH (08:15)
[2025-10-16] MEDS: ceFAZolin 2 GM in SODIUM CHLORIDE 0.9% IV 50 ML 100 ML IVPB (08:53)
[2025-10-16] MEDS: LIDO 1%/EPINEPHRINE 1:100,000 50 ML VIAL (09:13)
[2025-10-16] MEDS: OXYMETAZOLINE HCL 0.05% NAS 15 ML BTL (*BKC) 1 SPRAY NASAL (09:13)
[2025-10-16] MEDS: TOBRAMYCIN SULFATE 80 MG/2 ML VIAL 400 MG IRRIGATION (09:14)
--- NOTE | 2025-10-16 09:24 | S_PTH ---
PATIENT: Yanni Marroquin LOC: [facility] U#:[id number] AGE/SX: 35/F ROOM: RE10/16/[address]: Natalio White MD : 1990 BED: DIS: 10/16/2025 SPEC #: [id number] RECD: 10/16/25 10:24 STATUS: UZAIR REAidee #: [id number] MARIO: 10/16/25 09:[address]: Natalio White DEPT: [facility] Surgical RECD BY: Lisbeth Garnica ENTERED: 10/16/25 10:25 SP TYPE: Surgical OTHR DR: Syeda Galdamez, PA Tissues: A - Sinus Contents Procedures: Hematoxylin and Eosin Stain Gross and Microscopic Level 4
--- NOTE | 2025-10-16 10:19 | P.OP_ITS ---
Procedure Note - Detailed Date of Procedure 10/16/25 Pre-op Diagnosis Allergic Rhinitis, Chronic Sinusitis, right mucus right maxillary sinus mucous retention cyst. Right ethmoid sinusitis. Post-op Diagnosis Same Procedure Performed 1. Right-sided image guided endoscopic maxillary antrostomy revision with tissue removal 2. Right-sided image guided endoscopic total ethmoidectomy Surgeon Natalio White MD Anesthesia General Indications See above Findings 1. Large cyst filling the right maxillary sinus biopsies sent for pathologic analysis tissue removed was able to remove about 90% of it the cyst is pedicled on the anterior lateral aspect of the sinus. 2. Edematous tissue in the right anterior ethmoids. Description of Procedure Patient identified consent verified the preoperative holding area. Patient bro ught to the operating. Time-out performed. General anesthesia induced endotracheal tube secured airway patient prepped draped position procedure confirmed 2nd time-out performed. Image guidance initiated confirmed. 0 degree endoscope utilized right-sided viewed large cyst the maxillary sinus this was removed with 046 the microdebrider is frontal sinus curette its and draft instruments. And then the sinus was ensured to be open all the way to the natural os as well as posterior fontanelle this was removed with straight through cut Kerrison the ethmoids on that side removed opened with Kerrison straight through cut microdebrider 0 image guided. Bleeding was minimal about 10-15 cc. I performed all dictated portions of the procedure. The wounds were also copiously irrigated out with sterile normal saline infused with tobramycin. Patient tolerated everything very well minimal bleeding no packing care the patient given back to Anesthesiology I performed all dictated portions of proc edure patient taken to PACU in good condition with no immediate complications. Estimated Blood Loss 10 Drains No Packing No Pathology Yes Complications No immediate complications Condition Stable Disposition PACU [facility] Billing Surgery - Charge Forward: Surgery Billing
[2025-10-16] MEDS: fentaNYL CITRATE INJ (*CRX) 100 MCG/2 ML VIAL 25 MCG IV PUSH ×4 (10:20→10:30)
--- NOTE | 2025-10-16 11:30 | SUR.PHASEII ---
Patient offered oxycodone and she declined.
== END 2025-10-16 12:11 | disposition home or self-care (01) ==
PROVIDERS: Anesthesiology; PCP Physician Assistant; Visit Provider Otolaryngology
PROC: (CPT 31267; principal; 2025-10-16 08:30)
DX: J32.2 Chronic ethmoidal sinusitis (principal); J30.9 Allergic rhinitis, unspecified; J34.1 Cyst and mucocele of nose and nasal sinus; E66.9 Obesity, unspecified; Z68.41 Body mass index [BMI] 40.0-44.9, adult
CPT/HCPCS: 31267; 31255; 61782; 88305; J0690; A9270; J1100; J2003; J2004; J2250; J2405; J2704; J3010; J3260; J7050; J7120